=== PATIENT | male | born 1995 | race Caucasian/White ===

== ENCOUNTER 2016-07-24 12:04 | Inpatient (IN) ==
[2016-07-24] MEDS ORDERED: *HR* LORazepam 2 MG/ML VIAL IM STA (12:10)
[2016-07-24] MEDS ORDERED: Haloperidol Lactate 5 MG/ML VIAL IM ONE (12:10)
--- NOTE | 2016-07-24 12:15 | Emergency Department Note ---
Disposition Clinical Impression: Schizophrenia, Visual hallucinations Disposition: Admitted As Inpatient Condition: Fair Time of Disposition: 16:52 Psych HPI - General Chief Complaint: ED Altered Mental Status Stated Complaint: combative, AMS Time Seen by Provider: 07/24/16 12:09 Source: EMS Mode of arrival: ambulatory Limitations: no limitations Nursing Notes Reviewed: Yes Vital Signs Reviewed: Yes - History of Present Illness HPI Narrative: Patient is a 21-year-old male with schizophrenia, bipolar disorder. He presents today via EMS/police escort due to hyperactivity, paranoid delusions, visual hallucinations. Please state that they apprehended him due to trespassing. He began acting violently enteritis officers. They noted reticulocyte behavior, called EMS for further evaluation and help. EMS states that the patient has been to do before due to psychiatric complaints. Patient to be restrained to prevent self-harm and harm to others. Patient was in restraints on presentation. When interviewing the patient, patient appears agitated, he denies any current chest pain, shortness breath, abdominal pain, nausea, vomiting, numbness, tingling, weakness. Denies any drug use. Denies any suicidal or homicidal thoughts, however, he is showing aggressive behavior. He states that he is having visual hallucinations. He has not been taking any of his psychiatry medications for the past 2-3 days, however, he cannot remember why. - Related Data Home Medications Medication Instructions Recorded Confirmed Benztropine [Cogentin] 2 mg PO BID 07/24/16 07/24/16 Propranolol [Inderal] 10 mg PO DAILY 07/24/16 07/24/16 Previous Rx's Medication Instructions Recorded ClonazePAM [Klonopin] 1 mg PO BID 30 Days 10/15/15 Divalproex (12 HR) [Depakote (12 500 mg PO BID 30 Days 10/15/15 HR)] Fluphenazine [Prolixin] 5 mg PO BID 30 Days 10/15/15 Fluphenazine [Prolixin] 5 mg PO HS 30 Days 10/15/15 Allergies Allergy/AdvReac Type Severity Reaction Status Date / Time No Known Drug Allergies Allergy See Verified 08/03/15 18:00 Comments All systems ED: reviewed and negative except as stated. Past Medical History - Past Medical History Attestation: Yes The following information was validated with the patient. Medical history: Reports: no medical history Psychiatric history: Reports: schizophrenia, previous psychiatric hospitalization - Social History Smoking Status: Light tobacco smoker Smokeless Tobacco Status: No Alcohol use: Reports: none Drug use: Reports: none Physical Exam - General Limitations: no limitations General appearance: in no apparent distress, other (Anxious, agitated, exhibiting aggressive behavior) - Head Head exam: atraumatic, normocephalic, normal inspection - Eye Eye exam: Present: normal appearance, PERRL, EOMI - ENT ENT exam: normal exam, normal oropharynx, mucous membranes moist - Neck Neck exam: Present: normal inspection, full ROM, trachea midline - Chest Chest inspection: Present: normal inspection, symmetric chest wall rise - Respiratory Respiratory exam: Present: normal lung sounds bilaterally. Absent: respiratory distress, wheezes, stridor, accessory muscle use - Cardiovascular Cardiovascular exam: Present: regular rate, normal rhythm, normal heart sounds - Abdominal Exam Abdominal exam: Present: soft, Non-Tender. Absent: tenderness, distention, guarding, rebound, rigidity - Extremities Exam Extremities exam: Present: normal inspection, full ROM. Absent: tenderness, pedal edema - Back Exam Back exam: Present: normal inspection, full ROM. Absent: tenderness - Neurological Exam Neurological exam: Present: alert, oriented X3, CN II-XII intact. Absent: motor sensory deficit - Psychiatric Psychiatric exam: Present: agitated, anxious, other (agressive behavior) - Skin Skin exam: Present: warm, dry, intact, normal color Course Course Narrative: Patient is tachycardic on presentation. However, the rest of his vitals were within normal limits. Patient is anxious, having visual hallucinations, showing aggressive behavior. Due to safety reasons for the patient and staff, we will place the patient in restraints. We will also give her Haldol 5 mg and 1 mg of Ativan to help calm him down. The staff here is familiar with this patient and he has had previous admissions to psychiatry service. We will order a psychiatric clearance labs, and then have psychiatry evaluate due to paranoid delusions, visual hallucinations. 13:11 No major concerns with labs. Patient has been cleared to be evaluated by psychiatry. Patient admitted to psychiatry team for further evaluation. Vital Signs Temperature 98.3 F 07/24/16 12:04 Pulse Rate 125 07/24/16 12:04 Respiratory Rate 16 07/24/16 12:04 Blood Pressure 118/78 07/24/16 12:04 O2 Sat by Pulse Oximetry 100 07/24/16 12:04 Temperature 98.3 F 07/24/16 12:33 Pulse Rate 115 07/24/16 13:06 Respiratory Rate 16 07/24/16 16:34 Blood Pressure 106/58 07/24/16 16:34 O2 Sat by Pulse Oximetry 95 07/24/16 13:06 Oxygen Delivery Oxygen Delivery Room Air Psych - MDM Narrative Medical decision making narrative: Patient is tachycardic on presentation. However, the rest of his vitals were within normal limits. Patient is anxious, having visual hallucinations, showing aggressive behavior. Due to safety reasons for the patient and staff, we will place the patient in restraints. We will also give her Haldol 5 mg and 1 mg of Ativan to help calm him down. The staff here is familiar with this patient and he has had previous admissions to psychiatry service. We will order a psychiatric clearance labs, and then have psychiatry evaluate due to paranoid delusions, visual hallucinations. 13:11 No major concerns with labs. Patient has been cleared to be evaluated by psychiatry. Patient admitted to psychiatry team for further evaluation. - Lab Data Result diagrams: 07/24/16 12:32 07/24/16 12:32 Lab Results 07/24/16 07/24/16 07/24/16 Range/Units 12:30 12:30 12:32 WBC 8.1 (4.3-11.1) K/mcL RBC 4.89 (4.19-5.50) M/mcL Hgb 14.8 (12.9-16.9) g/dL Hct 41.5 (37.5-50.1) % MCV 84.9 (83.0-100.0) fL MCH 30.3 (28.0-33.3) pg MCHC 35.7 H (31.6-35.5) g/dL RDW 11.7 (11.5-14.5) % Plt Count 205 (140-400) K/mcL MPV 9.4 (9.4-12.4) fL Immature Gran % 0.2 (0-4) % Seg Neutrophils % 80.8 % Lymphocytes % 10.4 % Monocytes % 8.3 % Eosinophils % 0.1 % Basophils % 0.2 % Neutrophils # 6.5 (1.6-8.9) K/mcL Lymphocytes # 0.8 (0.6-4.6) K/mcL Monocytes # 0.7 (0.0-1.3) K/mcL Eosinophils # 0.0 (0.0-0.6) K/mcL Basophils # 0.0 (0.0-0.2) K/mcL Sodium (136-145) mEq/L Potassium (3.5-4.5) mEq/L Chloride (98-109) mEq/L Carbon Dioxide (19-29) mEq/L BUN (8-26) mg/dL Creatinine (0.72-1.25) mg/dL Est GFR ( Amer) (> 60) Est GFR (Non-Af Amer) (> 60) BUN/Creatinine Ratio (6-26) Glucose (70-99) mg/dL Calculated Osmolality (280-300) Calcium (8.6-10.8) mg/dL Urine Color Yellow (Yellow) Urine Clarity Clear (Clear) Urine pH 6.0 (5.0-8.0) pH Units Ur Specific [place] 1.030 H (1.010-1.025) Urine Protein 30 H (Neg-Trace) mg/dL Urine Glucose (UA) Normal (Normal) mg/dL Urine Ketones >=160 H (Negative) mg/dL Urine Blood Negative (Negative) Urine Nitrite Negative (Negative) Urine Bilirubin Small H (Negative) Urine Urobilinogen Normal (Normal) mg/dL Ur Leukocyte Esterase Negative (Negative) Urine Microscopic RBC 0-3 (0-3) per hpf Urine Microscopic WBC 0-3 (0-3) per hpf Ur Squamous Epith Cells Many H (None-Few) per lpf Urine Bacteria None Seen (None-Few) per hpf Hyaline Casts Few (None-Few) per lpf Salicylates (15-30) mg/dL Urine Opiates Screen Negative (Ygzvdv=826) ng/mL Acetaminophen (10-30) mcg/mL Ur Barbiturates Screen Negative (Zkyshj=078) ng/mL Ur Phencyclidine Scrn Negative (Cutoff=25) ng/mL Ur Amphetamines Screen Negative (Viznyp=0939) ng/mL U Benzodiazepines Scrn Negative (Rovqaz=064) ng/mL Urine Cocaine Screen Negative (Cutoff= 300) ng/mL U Marijuana (THC) Screen Negative (Cutoff = 50) ng/mL Ethyl Alcohol (0-10) mg/dL 07/24/16 Range/Units 12:32 WBC (4.3-11.1) K/mcL RBC (4.19-5.50) M/mcL Hgb (12.9-16.9) g/dL Hct (37.5-50.1) % MCV (83.0-100.0) fL MCH (28.0-33.3) pg MCHC (31.6-35.5) g/dL RDW (11.5-14.5) % Plt Count (140-400) K/mcL MPV (9.4-12.4) fL Immature Gran % (0-4) % Seg Neutrophils % % Lymphocytes % % Monocytes % % Eosinophils % % Basophils % % Neutrophils # (1.6-8.9) K/mcL Lymphocytes # (0.6-4.6) K/mcL Monocytes # (0.0-1.3) K/mcL Eosinophils # (0.0-0.6) K/mcL Basophils # (0.0-0.2) K/mcL Sodium 138 (136-145) mEq/L Potassium 3.9 (3.5-4.5) mEq/L Chloride 105 (98-109) mEq/L Carbon Dioxide 17 L (19-29) mEq/L BUN 10 (8-26) mg/dL Creatinine 0.94 (0.72-1.25) mg/dL Est GFR ( Amer) > 60 (> 60) Est GFR (Non-Af Amer) > 60 (> 60) BUN/Creatinine Ratio 11 (6-26) Glucose 97 (70-99) mg/dL Calculated Osmolality 285 (280-300) Calcium 9.7 (8.6-10.8) mg/dL Urine Color (Yellow) Urine Clarity (Clear) Urine pH (5.0-8.0) pH Units Ur Specific [place] (1.010-1.025) Urine Protein (Neg-Trace) mg/dL Urine Glucose (UA) (Normal) mg/dL Urine Ketones (Negative) mg/dL Urine Blood (Negative) Urine Nitrite (Negative) Urine Bilirubin (Negative) Urine Urobilinogen (Normal) mg/dL Ur Leukocyte Esterase (Negative) Urine Microscopic RBC (0-3) per hpf Urine Microscopic WBC (0-3) per hpf Ur Squamous Epith Cells (None-Few) per lpf Urine Bacteria (None-Few) per hpf Hyaline Casts (None-Few) per lpf Salicylates < 5.0 L (15-30) mg/dL Urine Opiates Screen (Xrlwvt=730) ng/mL Acetaminophen < 1.0 L (10-30) mcg/mL Ur Barbiturates Screen (Ozaicw=576) ng/mL Ur Phencyclidine Scrn (Cutoff=25) ng/mL Ur Amphetamines Screen (Mlfjin=8389) ng/mL U Benzodiazepines Scrn (Czjzrb=151) ng/mL Urine Cocaine Screen (Cutoff= 300) ng/mL U Marijuana (THC) Screen (Cutoff = 50) ng/mL Ethyl Alcohol < 10 (0-10) mg/dL Psychiatric Medical Clearance - Medical Clearance Checklist Medical History: No Social History Section defined Current Vitals: Last Vital Signs Temp 98.3 F 07/24/16 12:33 Pulse 115 07/24/16 13:06 Resp 16 07/24/16 16:34 BP 106/58 07/24/16 16:34 Pulse Ox 95 07/24/16 13:06 Psychiatric Lab Panel: Drug Levels and Toxicity 07/24/16 07/24/16 12:30 12:32 Urine Opiates Screen Negative Acetaminophen < 1.0 L Ur Barbiturates Screen Negative Ur Phencyclidine Scrn Negative Ur Amphetamines Screen Negative U Benzodiazepines Scrn Negative Urine Cocaine Screen Negative U Marijuana (THC) Screen Negative Ethyl Alcohol < 10 Abnormal Labs: Abnormal lab results MCHC 35.7 g/dL (31.6-35.5) H 07/24/16 12:32 Carbon Dioxide 17 mEq/L (19-29) L 07/24/16 12:32 Ur Specific [place] 1.030 (1.010-1.025) H 07/24/16 12:30 Urine Protein 30 mg/dL (Neg-Trace) H 07/24/16 12:30 Urine Ketones >=160 mg/dL (Negative) H 07/24/16 12:30 Urine Bilirubin Small (Negative) H 07/24/16 12:30 Ur Squamous Epith Cells Many per lpf (None-Few) H 07/24/16 12:30 Salicylates < 5.0 mg/dL (15-30) L 07/24/16 12:32 Acetaminophen < 1.0 mcg/mL (10-30) L 07/24/16 12:32 Statement of Medical Clearance: I have evaluated the patient, reviewed diagnostic information, and certify that the patient's medical condition is sufficiently stable that transfer to the psychiatric unit does not pose a significant risk of deterioration. Attestation Statement - Attestation Attestation: Patient was seen with resident physician. I reviewed the history, physical, assessment and plan, and agree with the findings. I also personally evaluated this patient and had [id number] time with this patient. 21-year-old male presents to the emergency department after being called by the police for a trespassing concern. When the police arrived apparently the patient became combative. He required restraints to be transported affectively to the hospital and was accompanied on arrival by variety of police and EMS professionals. Apparently the patient is a paranoid schizophrenic who is not been taking his medication for some time. He denies alcohol or drug use, he says he does smoke cigarettes. He is not sure how long expenses is taking this medication and is not sure the name of what he is supposed to be on. Patient admits to visual hallucinations. He denies homicidal or suicidal ideation. He is generally a very poor historian and it is difficult to get him to open up. On examination patient is in 4. restraints. He appears agitated but not violent at this time. ENT ears normocephalic atraumatic. He has some rapid nystagmus of the eyes. Heart and lungs are normal. Abdomen is soft and nontender. Extremities are unremarkable. Psychiatric exam patient appears agitated, and gives the impression of possible explosive behavior. We will do a psychiatry workup and clearance and then have psychiatry come and evaluate and disposition the patient. We will also write pink slips for admission and restraint, and we will chemically restrain patient as well with Haldol and Ativan. I agree with the resident physician assessment and plan.
[2016-07-24 12:37] LABS: Bilirubin,Urine Small (Negative); Blood,Urine Negative (Negative); Clarity,Urine Clear (Clear); Color,Urine Yellow (Yellow); Glucose,Urine (UA) Normal (Normal); Ketones,Urine >=160 mg/dL (Negative); Leukocyte Esterase,Urine Negative (Negative); Nitrite,Urine Negative (Negative); Protein,Urine 30 mg/dL (Neg-Trace); Urobilinogen,Urine Normal (Normal)
[2016-07-24 12:39] LABS: Bacteria,Urine None Seen per hpf (None-Few); Hyaline Casts,Urine Few per lpf (None-Few); RBC,Urine 0-3 per hpf (0-3); Squamous Epithelial Cell,Urine Many per lpf (None-Few); WBC,Urine 0-3 per hpf (0-3)
[2016-07-24 12:39] LABS: Basophils % 0.2 %; Eosinophils % 0.1 %; Hematocrit 41.5 % (37.5-50.1); Hemoglobin 14.8 g/dL (12.9-16.9); Immature Granulocytes % 0.2 % (0-4); Lymphocytes # 0.8 K/mcL (0.6-4.6); Lymphocytes % 10.4 %; Mean Corpuscular HGB Conc 35.7 g/dL (31.6-35.5); Mean Corpuscular Hemoglobin 30.3 pg (28.0-33.3); Mean Corpuscular Volume 84.9 fL (83.0-100.0); Mean Platelet Volume 9.4 fL (9.4-12.4); Monocytes # 0.7 K/mcL (0.0-1.3); Monocytes % 8.3 %; Neutrophils # 6.5 K/mcL (1.6-8.9); Platelet Count 205 K/mcL (140-400); Red Blood Count 4.89 M/mcL (4.19-5.50); Red Cell Distribution Width 11.7 % (11.5-14.5); Segmented Neutrophils % 80.8 %
[2016-07-24 12:49] LABS: Amphetamine Screen,Urine Negative ng/mL (Cutoff=1000); Barbiturate Screen,Urine Negative ng/mL (Cutoff=200); Benzodiazepines Screen,Urine Negative ng/mL (Cutoff=200); Cannabinoid Screen,Urine Negative ng/mL (Cutoff = 50); Cocaine Screen,Urine Negative ng/mL (Cutoff= 300); Opiate Screen,Urine Negative ng/mL (Cutoff=300); Phencyclidine Screen,Urine Negative ng/mL (Cutoff=25)
[2016-07-24 12:52] LABS: BUN/Creatinine Ratio 11 (6-26); Blood Urea Nitrogen 10 mg/dL (8-26); Calcium 9.7 mg/dL (8.6-10.8); Carbon Dioxide 17 mEq/L (19-29); Chloride 105 mEq/L (98-109); Glucose 97 mg/dL (70-99); Osmolality,Calculated 285 (280-300); Potassium 3.9 mEq/L (3.5-4.5); Sodium 138 mEq/L (136-145); eGFR For African Americans > 60 (> 60); eGFR For Non-African Americans > 60 (> 60)
[2016-07-24 12:54] LABS: Acetaminophen < 1.0 mcg/mL (10-30); Ethanol < 10 mg/dL (0-10); Salicylate < 5.0 mg/dL (15-30)
[2016-07-24] MEDS ORDERED: Acetaminophen 325 MG TABLET PO PRN (16:47)
[2016-07-24] MEDS ORDERED: hydrOXYzine pamoate 25 MG CAPSULE PO PRN (16:47)
[2016-07-24] MEDS ORDERED: MOM Conc 10 ML UD.LIQ PO PRN (16:47)
[2016-07-24] MEDS ORDERED: Mag Hydrox/Al Hydrox/Simeth 30 ML UDC PO PRN (16:47)
[2016-07-24] MEDS ORDERED: Haloperidol Lactate 5 MG/ML VIAL IM PRN (16:53)
[2016-07-24] MEDS ORDERED: *HR* LORazepam 2 MG/ML VIAL IM PRN (16:58)
[2016-07-24] MEDS ORDERED: *HR* LORazepam 1 MG TABLET PO PRN (16:58)
--- NOTE | 2016-07-25 21:00 | Psychiatry History & Physical ---
Date of Encounter: 07/25/16 Time of Encounter: 16:00 History of Present Illness Patient Stated Chief Complaint: "I'm fine. I will let me light shine. That is all the lord God wants me t Medicare Admission Attestation: For traditional Medicare patients the provided hospital inpatient services are reasonable and necessary and in the case of services not specified as inpatient -only under 42 CFR 419.22 (n), that they are appropriately provided as inpatient services in accordance 42 CFR 412.3. For Critical Access Hospital the patient may reasonably be expected to be discharged or transferred to a hospital within 96 hours after admission to the Critical Access Hospital. Admitted From: Emergency Dept Plans for Post Hospital Care: Home History of Present Illness: Mr. Loving is a 21 year old male who was brought into the emergency department after being apprehended by police for trespassing. Patient had paranoid delusions and was very agitated at that time. Upon interviewing the patient today, he tells "I am doing good". When I ask in regards to his history of being on psychiatric medications he told me "I do not need them". He said that God had sent him visions before and they started again a couple days ago. He started seeing the vision of the cross. He denies being suicidal or homicidal, he denies auditory or visual hallucinations of this time. I discussed with him his sleep and he states that he is not sleeping well. He has been having unusual thoughts but he will not discuss what those unusual thoughts are. He denied any side effects from his previous medications he stated that God would cure him and he did not need them. He told me that he was feeling depressed and frustrated at times but not elaborate. When I asked him what feeling depressed was like in regards to if he was having low energy and was sad he said "yes". In regards to talking to him about anxiety he said he was "stressed " but would not tell me what he was stressed about. I asked him to gauge on a scale from 1 to 10 with 10 being the worst stress ever, he stated" 10". Past Med Surg Social Fam HX - Past Medical History Medical history: no medical history - Past Psychiatric History Psychiatric history: Reports: previous psychiatric hospitalization (Last Mitzi 1 -A 08/2015. tx outpatient at [facility], non-compliant) Family psychiatric history: Yes (both parents have mental health diagnosis.) Family History of Suicide: Unknown - Social History Smoking Status: Never smoker Smokeless Tobacco Status: No Alcohol use: none Drug use: none Medications & Allergies ClonazePAM [Klonopin] 1 mg PO BID 30 Days 10/15/15 [Rx] Divalproex (12 HR) [Depakote (12 HR)] 500 mg PO BID 30 Days 10/15/15 [Rx] Fluphenazine [Prolixin] 5 mg PO BID 30 Days 10/15/15 [Rx] Fluphenazine [Prolixin] 5 mg PO HS 30 Days 10/15/15 [Rx] Benztropine [Cogentin] 2 mg PO BID 07/24/16 [History] Propranolol [Inderal] 10 mg PO DAILY 07/24/16 [History] Allergies No Known Drug Allergies Allergy (Verified 08/03/15 18:00) See Comments Review of Systems Psychiatric: Reports: anxiety, abnormal sleep pattern, suicidal ideation Mental Status Exam Patient orientation: Yes Person, Yes Place Level of alertness: Other (Follows commands but reluctantly) Patient appearance: Appropriate Behavior: nervous, anxious, guarded Psychomotor activity: Normal Eye contact: Fleeting Contact Mood description: Anxious Affect description: flat, anxious Speech pattern: Normal rate, Normal rhythm, Normal tone Speech volume: Normal Thought process: Circumstantial, Perseveration, [place] Thought content: Yes Paranoid delusion, Yes Christian delusion, Yes Guilt Memory description: Recent Impaired, Remote Impaired Patient reliability: Not Reliable Historian Intelligence estimate: Average Judgment: Poor Insight: Minimal Results - Vital Signs Vital signs: Temp Pulse Resp BP Pulse Ox 99.2 F 79 16 137/93 95 07/25/16 19:45 07/25/16 19:45 07/25/16 19:45 07/25/16 19:45 07/24/16 13:06 - Labs Labs: Laboratory Last Values WBC 8.1 K/mcL (4.3-11.1) 07/24/16 12:32 RBC 4.89 M/mcL (4.19-5.50) 07/24/16 12:32 Hgb 14.8 g/dL (12.9-16.9) 07/24/16 12:32 Hct 41.5 % (37.5-50.1) 07/24/16 12:32 MCV 84.9 fL (83.0-100.0) 07/24/16 12:32 MCH 30.3 pg (28.0-33.3) 07/24/16 12:32 MCHC 35.7 g/dL (31.6-35.5) H 07/24/16 12:32 RDW 11.7 % (11.5-14.5) 07/24/16 12:32 Plt Count 205 K/mcL (140-400) 07/24/16 12:32 MPV 9.4 fL (9.4-12.4) 07/24/16 12:32 Immature Gran % 0.2 % (0-4) 07/24/16 12:32 Seg Neutrophils % 80.8 % 07/24/16 12:32 Lymphocytes % 10.4 % 07/24/16 12:32 Monocytes % 8.3 % 07/24/16 12:32 Eosinophils % 0.1 % 07/24/16 12:32 Basophils % 0.2 % 07/24/16 12:32 Neutrophils # 6.5 K/mcL (1.6-8.9) 07/24/16 12:32 Lymphocytes # 0.8 K/mcL (0.6-4.6) 07/24/16 12:32 Monocytes # 0.7 K/mcL (0.0-1.3) 07/24/16 12:32 Eosinophils # 0.0 K/mcL (0.0-0.6) 07/24/16 12:32 Basophils # 0.0 K/mcL (0.0-0.2) 07/24/16 12:32 Sodium 138 mEq/L (136-145) 07/24/16 12:32 Potassium 3.9 mEq/L (3.5-4.5) 07/24/16 12:32 Chloride 105 mEq/L (98-109) 07/24/16 12:32 Carbon Dioxide 17 mEq/L (19-29) L 07/24/16 12:32 BUN 10 mg/dL (8-26) 07/24/16 12:32 Creatinine 0.94 mg/dL (0.72-1.25) 07/24/16 12:32 Est GFR ( Amer) > 60 (> 60) 07/24/16 12:32 Est GFR (Non-Af Amer) > 60 (> 60) 07/24/16 12:32 BUN/Creatinine Ratio 11 (6-26) 07/24/16 12:32 Glucose 97 mg/dL (70-99) 07/24/16 12:32 Calculated Osmolality 285 (280-300) 07/24/16 12:32 Calcium 9.7 mg/dL (8.6-10.8) 07/24/16 12:32 Urine Color Yellow (Yellow) 07/24/16 12:30 Urine Clarity Clear (Clear) 07/24/16 12:30 Urine pH 6.0 pH Units (5.0-8.0) 07/24/16 12:30 Ur Specific [place] 1.030 (1.010-1.025) H 07/24/16 12:30 Urine Protein 30 mg/dL (Neg-Trace) H 07/24/16 12:30 Urine Glucose (UA) Normal mg/dL (Normal) 07/24/16 12:30 Urine Ketones >=160 mg/dL (Negative) H 07/24/16 12:30 Urine Blood Negative (Negative) 07/24/16 12:30 Urine Nitrite Negative (Negative) 07/24/16 12:30 Urine Bilirubin Small (Negative) H 07/24/16 12:30 Urine Urobilinogen Normal mg/dL (Normal) 07/24/16 12:30 Ur Leukocyte Esterase Negative (Negative) 07/24/16 12:30 Urine Microscopic RBC 0-3 per hpf (0-3) 07/24/16 12:30 Urine Microscopic WBC 0-3 per hpf (0-3) 07/24/16 12:30 Ur Squamous Epith Cells Many per lpf (None-Few) H 07/24/16 12:30 Urine Bacteria None Seen per hpf (None-Few) 07/24/16 12:30 Hyaline Casts Few per lpf (None-Few) 07/24/16 12:30 Salicylates < 5.0 mg/dL (15-30) L 07/24/16 12:32 Urine Opiates Screen Negative ng/mL (Zskavn=921) 07/24/16 12:30 Acetaminophen < 1.0 mcg/mL (10-30) L 07/24/16 12:32 Ur Barbiturates Screen Negative ng/mL (Pekrqn=256) 07/24/16 12:30 Ur Phencyclidine Scrn Negative ng/mL (Cutoff=25) 07/24/16 12:30 Ur Amphetamines Screen Negative ng/mL (Sbersu=6126) 07/24/16 12:30 U Benzodiazepines Scrn Negative ng/mL (Edfayr=946) 07/24/16 12:30 Urine Cocaine Screen Negative ng/mL (Cutoff= 300) 07/24/16 12:30 U Marijuana (THC) Screen Negative ng/mL (Cutoff = 50) 07/24/16 12:30 Ethyl Alcohol < 10 mg/dL (0-10) 07/24/16 12:32 Assessment and Plan (1) Schizoaffective disorder, bipolar type Current visit: No Status: Acute Plan: Admit inpatient for safety and stabilization, Close observation, Encourage participation in unit milieu, Group Therapy Risks, benefits, side effects, alternatives discussed w/pt: Yes (restart his Prolixin) Patient agreeable to treatment: No (He is hesitant at this time) Estimated Length of Stay (Days): 10
--- NOTE | 2016-07-26 10:26 | Psychiatry Progress Note ---
Date of Encounter: 07/26/16 Time of Encounter: 09:00 Subjective Interval history: "I'm good. I don't know that I need to be here. I had told the police I needed to flee [place]. I don't know that I need to do that now." He will not explain to me why he needed to flee [place]. He no longer feels it to be a threat to be out of the hospital. He took his medication last evening and denies any side effects. He tells me he slept good. He was eating yesterday without issue. He denies being depressed, but is still "a little anxious and worried." He denies SI/HI. He denies A/V hallucinations but appears to have some thought blocking or is responding to internal stimuli. We had a long discussion regarding signing in and continuing on with his medications secondary to being probated here. He is unsure about being here, but finally decides he will take his medications and sign in on a voluntary basis. Review of Systems Psychiatric: Reports: anxiety Objective: Exam Patient orientation: Yes Person, Yes Place Level of alertness: Alert (Able to sit and talk to me.) Patient appearance: Well Groomed, Bizarre Behavior: nervous, anxious, guarded Psychomotor activity: Normal Eye contact: Prolonged Contact Mood description: Anxious Affect description: flat, anxious Speech pattern: Normal tone, Difficulty finding words Speech volume: Normal Thought process: Thought Blocking ((questionable)), [place] Thought content: Yes Paranoid delusion, Yes Evangelical delusion Perceptual disturbances: Yes Reacting to internal stimuli ((questionable)) Judgment: Poor Insight: Minimal Results - Vital Signs Vital Signs: Temp Pulse Resp BP Pulse Ox 97.4 F L 98 16 137/88 95 07/26/16 08:14 07/26/16 08:14 07/26/16 08:14 07/26/16 08:14 07/24/16 13:06 Assessment and Plan (1) Schizoaffective disorder, bipolar type Current visit: No Status: Acute Plan: Continue hospitalization, Group Therapy, Monitor appetite Risks, benefits, side effects, alternatives discussed w/pt: Yes (restart his Prolixin) Patient agreeable to treatment: Yes (signs in voluntary) Consult Discharge Plan - Plan Referrals: NO,PCP [Primary Care Provider] -
[2016-07-26] MEDS: traZODone 50 MG TABLET PO PRN (20:40)
--- NOTE | 2016-07-27 11:53 | Psychiatry Progress Note ---
Date of Encounter: 07/27/16 Time of Encounter: 10:35 Subjective Interval history: Mr. Loving was seen in follow-up today. It was reported that he had tried to elope from the unit last night. I asked him what happened, and he stated "I shouldn't have done that". Staff reported that he was not forceful about it, but walked toward the exit door and said he was going to leave the unit. He told me he was sorry. He does not like to be in the hospital and misses his family and home. Patient acknowledged that he was more relaxed and feeling better. He was observed yesterday talking more to other patients and staff on the unit, playing games and attending activities. He was able to focus and concentrate better and was much more animated and engaged; where as he had not been able to do these things prior to restarting his Prolixin. He was having thought blocking and was very paranoid. He is making better eye contact and smiling more. He reported that he is sleeping fine and eating fine. I spoke with him about his medications and that he is doing better with medication. He is still questioning the need for the medication stating that he wanted to go home. I discussed with him his history of noncompliance and the fact that you got in trouble with the police again for trespassing. I spoke with him about not being on the Depakote this admission, which he had been on in the past causing him to gain weight. I told him that others have observed what I observed, how he was much better. I explained to him again that it was a chemical imbalance that could be improved upon with medications and would probably not go away for him. I explained to him that the Prolixin came in a "shot form" that he could take every 2 to 4 weeks depending on the dose, depending on his outpatient follow-ups. This would make it easier that he would not have to take pills and would not have to go to doctors appointments as frequently. He thought about this for a long time and asked more questions of me and asked questions/ opinions of other staff. He is concerned about possibly getting court ordered some day for medications if he got into trouble again. He decided he would try to take the Prolixin Decanoate 12.5 mg preparation and see how it goes, especially if he did not have to take pills much longer and that he could be discharged home sooner and not have to see outpatient mental health as frequently. Review of Systems Psychiatric: Reports: anxiety (Improved), abnormal sleep pattern (Improved) Objective: Exam Patient orientation: Yes Person, Yes Time, Yes Place, Yes Circumstance Level of alertness: Alert (Able to sit and talk to me.) Patient appearance: Appropriate (more so than upon admission), Well Groomed Behavior: nervous (less), guarded (less) Psychomotor activity: Normal Eye contact: Maintains Eye Contact Mood description: Anxious (mild when talking of the medications) Affect description: anxious Speech pattern: Normal rate, Normal rhythm, Normal tone, Appropriate Speech volume: Normal Thought process: Linear (much improved), Goal Oriented, [place] Thought content: Yes Paranoid delusion (decreased), Yes Mandaeism delusion (not present) Judgment: Fair Insight: Partial Results - Vital Signs Vital Signs: Temp Pulse Resp BP Pulse Ox 98.0 F 98 18 131/84 95 07/27/16 09:00 07/27/16 09:00 07/27/16 09:00 07/27/16 09:00 07/24/16 13:06 Assessment and Plan (1) Schizoaffective disorder, bipolar type Current visit: No Status: Acute Plan: Continue hospitalization, Group Therapy, Monitor appetite Risks, benefits, side effects, alternatives discussed w/pt: Yes (Consented to Prolixin Dec 12.5 mg IM dose, given) Patient agreeable to treatment: Yes (signs in voluntary) Consult Discharge Plan - Plan Referrals: [facility] [Outside] - 08/03/16 10:00 am (The above appointment is with Leticia Peters, counselor. You will also see Jana Ching, psychiatric prescriber, on 08/15/2016 @ 11:00am.)
[2016-07-27] MEDS ORDERED: *HR* LORazepam 2 MG/ML VIAL IM PRN (16:27)
[2016-07-27] MEDS ORDERED: *HR* LORazepam 1 MG TABLET PO PRN (16:29)
[2016-07-27] MEDS: traZODone 50 MG TABLET PO PRN (20:17)
--- NOTE | 2016-07-28 11:34 | Psychiatry Progress Note ---
Date of Encounter: 07/28/16 Time of Encounter: 09:40 Subjective Interval history: Patient tells me that he is doing okay and denies any side effects of the IM Prolixin he received yesterday. He tells me that he slept well he has no arm soreness. He denies suicidal or homicidal ideations. He asks me, "so I will get out here in 2 or 3 days doing?" I told him that that was the plan as long as things continue to go well. I asked him if he was hearing voices are seeing things that others may not be seeing or hearing. He replied "I do not want to talk about that". He showed me that he completed his wellness plan. When asked him why he would not talk about hallucinations he shook his head no and wouldn't say anything. He is cooperative on the unit, is engaged in more activities on the unit and is starting to present as more open and spontaneous. Review of Systems Psychiatric: Reports: anxiety (Improved), abnormal sleep pattern (Improved), auditory hallucinations (he will not discuss), visual hallucinations (he will not discuss) Objective: Exam Patient orientation: Yes Person, Yes Time, Yes Place, Yes Circumstance Level of alertness: Alert Patient appearance: Appropriate, Well Groomed Behavior: nervous (less), other (more appropriately engaged.) Psychomotor activity: Normal Eye contact: Maintains Eye Contact Mood description: Anxious (mild when talking of the hallucinations) Affect description: anxious Speech pattern: Normal rate, Normal rhythm, Normal tone, Appropriate Speech volume: Normal Thought process: Linear (much improved), Goal Oriented, [place] Thought content: Yes Paranoid delusion (decreased) Perceptual disturbances: Yes Reacting to internal stimuli ((questionable, but less)) Judgment: Fair Insight: Partial Results - Vital Signs Vital Signs: Temp Pulse Resp BP Pulse Ox 98.6 F 68 16 125/72 95 07/28/16 08:53 07/28/16 08:53 07/28/16 08:53 07/28/16 08:53 07/24/16 13:06 Assessment and Plan (1) Schizoaffective disorder, bipolar type Current visit: No Status: Acute Plan: Continue hospitalization, Group Therapy, Monitor appetite Risks, benefits, side effects, alternatives discussed w/pt: Yes (Consented to Prolixin Dec 12.5 mg IM dose, given) Patient agreeable to treatment: Yes (signs in voluntary) Consult Discharge Plan - Plan Referrals: [facility] [Outside] - 08/03/16 10:00 am (The above appointment is with Leticia Peters, counselor. You will also see Jana Ching psychiatric prescriber, on 08/15/2016 @ 11:00am.)
[2016-07-28] MEDS: traZODone 50 MG TABLET PO PRN (21:07)
--- NOTE | 2016-07-29 13:21 | Psychiatry Progress Note ---
Date of Encounter: 07/29/16 Time of Encounter: 12:15 Subjective Interval history: Patient was willing to meet with me to talk today. I asked him how he was doing and he replied "good". He tells me, "slept all night last night till they woke me up this morning." When asked about thoughts of hurting himself or anybody else he denied that again today. When I asked him about hearing voices other people do not hear and seeing things other people do not see, he acknowledged that he has been seeing things which he did not want to talk about yesterday. I asked him what he sees he stated, "slash aldridge". I asked him if they were on himself or other people and he would not say. "I am not seeing them anymore so it is better". He then made a statement "I still do not know that I need that medication". He has been compliant and taking medication and has been showing improvement. He is less intense on the unit, he is smiling more and he is engaging staff and other patients in an appropriate manner. He was educated again on the medication and was encouraged to talk to his grandmother to see what she thought and get her opinion. He told me he would talk to his grandmother today and see if she thought he should take the medication. Review of Systems Psychiatric: Reports: anxiety (Improved), abnormal sleep pattern (Improved), auditory hallucinations, visual hallucinations Objective: Exam Patient orientation: Yes Person, Yes Time, Yes Place, Yes Circumstance Level of alertness: Alert (Able to sit and talk to me.) Patient appearance: Appropriate, Well Groomed Behavior: nervous (less), guarded (less) Psychomotor activity: Normal Eye contact: Maintains Eye Contact Mood description: Anxious (mild when talking of the medications) Affect description: anxious Speech pattern: Normal rate, Normal rhythm, Normal tone, Appropriate Speech volume: Normal Thought process: Linear (much improved), Goal Oriented, [place] (slightly becoming less) Perceptual disturbances: Yes Reacting to internal stimuli ((questionable)) Judgment: Fair Insight: Partial (improving slightly) Results - Vital Signs Vital Signs: Temp Pulse Resp BP Pulse Ox 97.9 F 85 16 117/71 95 07/29/16 08:43 07/29/16 08:43 07/29/16 08:43 07/29/16 08:43 07/24/16 13:06 Assessment and Plan (1) Schizoaffective disorder, bipolar type Current visit: No Status: Acute Plan: Continue hospitalization, Encourage participation in unit milieu, Group Therapy, Monitor appetite Risks, benefits, side effects, alternatives discussed w/pt: Yes Patient agreeable to treatment: Yes (signs in voluntary) Consult Discharge Plan - Plan Referrals: [facility] [Outside] - 08/03/16 10:00 am (The above appointment is with Leticia Peters, counselor. You will also see Jana Ching psychiatric prescriber, on 08/15/2016 @ 11:00am.)
--- NOTE | 2016-07-30 15:44 | Psychiatry Progress Note ---
Date of Encounter: 07/30/16 Time of Encounter: 11:00 Subjective Interval history: Patient tells me that he spoke to his grandmother yesterday and she told him he needs to take the medication. According to the patient, she told him he is doing better now with the medications. "I'll keep taken them then." He denies any issues with the IM Prolixin and will follow up with outpatient services to get another one in several weeks. I discussed with him that the IM should be absorbing now and that I would cut back on his oral dose to HS and then that would be stopped in 5 days or so. He is feeling more engaged and more relaxed on the unit. He denies SI/HI, A/V hallucinations. He is playing games with other patients and staff. He is sleeping well, eating fine and future oriented. Review of Systems Psychiatric: Reports: anxiety (Improved), visual hallucinations (resolved) Objective: Exam Patient orientation: Yes Person, Yes Time, Yes Place, Yes Circumstance Level of alertness: Alert Patient appearance: Appropriate, Well Groomed Behavior: calm, cooperative Psychomotor activity: Normal Eye contact: Maintains Eye Contact Mood description: Anxious (improved) Affect description: congruent with mood Speech pattern: Normal rate, Normal rhythm, Normal tone, Appropriate Speech volume: Normal Thought process: Linear (much improved), Goal Oriented Thought content: Yes Paranoid delusion (decreased) Judgment: Fair Insight: Partial Results - Vital Signs Vital Signs: Temp Pulse Resp BP Pulse Ox 98 F 90 18 121/72 95 07/30/16 08:44 07/30/16 08:44 07/30/16 08:44 07/30/16 08:44 07/24/16 13:06 Assessment and Plan (1) Schizoaffective disorder, bipolar type Current visit: No Status: Acute Plan: Continue hospitalization, Group Therapy, Monitor appetite Risks, benefits, side effects, alternatives discussed w/pt: Yes (Taking Oral Prolixin 5 mg that will be decreased to HS, with Prolixin Dec ) Patient agreeable to treatment: Yes Consult Discharge Plan - Plan Referrals: [facility] [Outside] - 08/03/16 10:00 am (The above appointment is with Leticia Peters, counselor. You will also see Jana Ching, psychiatric prescriber, on 08/15/2016 @ 11:00am.)
[2016-07-31 08:56] VITALS: BP 117/67
--- NOTE | 2016-07-31 10:16 | Discharge Summary ---
Date of Encounter: 07/31/16 Time of Encounter: 09:45 Diagnosis - Discharge Diagnosis (1) Schizoaffective disorder, bipolar type Status: Acute Medications - Discharge Medications Prescriptions: Benztropine [Cogentin] 1 mg PO Q4H PRN #30 tablet PRN Reason: EPS/Muscle Stiffness Fluphenazine [Prolixin] 5 mg PO HS #5 tablet Benztropine [Cogentin] 1 mg PO Q4H PRN #30 tablet 07/31/16 [Rx] Fluphenazine [Prolixin] 5 mg PO HS #5 tablet 07/31/16 [Rx] Allergies No Known Drug Allergies Allergy (Verified 08/03/15 18:00) See Comments Provider Date of admission: 07/24/16 16:12 Primary care physician: PCP NO Discharging clinician: Harley Jauregui Assessment and Plan - Patient/Caregiver Discharge Instructions Activity: resume usual activities as tolerated Diet: regular diet - Follow up Plan Follow up with: [facility] [Outside] - 08/03/16 10:00 am (The above appointment is with Leticia Peters, counselor. You will also see Jana Ching psychiatric prescriber, on 08/15/2016 @ 11:00am.) Functional capacity at discharge: independent ambulation Overall status at discharge: Stable Disposition: Home, Self-Care Hospital Course Hospital course: Mr. Loving is a 21 year old male who tells me today that he feels "good". He denies any problems on the unit or with his medications. He states that the medication is been helpful and he understands after talking to me and his grandmother confirming, that he needs to keep taking the medication. He tells me "I slept real good last night". He denies any adverse side effects of the Prolixin. His AIMS score is 0 today. He denies any auditory-visual hallucinations. He denies any mind reading, thought control or paranoia. He has been much more engaged over the weekend on the unit. He is laughing appropriately, talking with staff working on puzzles and games and communicating with the other patients in a pleasant manner. He is much more linear and logical. He received the Prolixin decanoate 12.5 mg injection several days ago. His dose of oral Prolixin has been dropped by to 5 mg at night. He will be continued on that for 5 more days and then will be DC'd. He has a follow-up appointment at [facility]. At that point time he should get at least another Prolixin 12.5 mg injection and/or have an increased dose if he is symptomatic, based on his clinical presentation. The increase dose should be 25 mg. - Time Spent with Patient Total time spent providing and/or coordinating discharge services: 15 min Less than 30 minutes Quality - Multiple Antipsychotics Patient discharged on 2 or more antipsychotic medications: No Procedures - Procedures Procedures: Medication Management, Crisis Stabilization, Psychoeducational Therapy Mental Status Exam - Mental Status Exam Patient orientation: Yes Person, Yes Time, Yes Place, Yes Circumstance Level of alertness: Alert Patient appearance: Appropriate, Well Groomed Behavior: calm, cooperative Psychomotor activity: Normal (AIMS=0) Eye contact: Maintains Eye Contact Mood description: Euthymic/stable (overall), Anxious (nervous about whether he was going to be discharged or not today) Affect description: congruent with mood Speech pattern: Normal rate, Normal rhythm, Normal tone, Appropriate Speech Volume: Normal Thought process: Linear (much improved), Goal Oriented Thought Content: Yes Paranoid delusion (decreased) Perceptual Disturbances: Yes Reacting to internal stimuli ((questionable, but less)) Judgment: Fair Insight: Partial
== END 2016-07-31 10:25 | disposition home or self-care (01) | DRG 750 ==
LOC: EMEROO 12:04 → SUATTDRO 16:12 → 1ANU 16:12
PROVIDERS: ADMIT Psychiatry & Neurology Psychiatry; ATTEND Psychiatry & Neurology Psychiatry

== ENCOUNTER 2016-08-12 10:52 | Inpatient (IN) ==
[2016-08-12] MEDS ORDERED: Ziprasidone injection 20 MG/ML VIAL IM ONE (10:57)
[2016-08-12 11:40] LABS: Basophils % 0.3 %; Eosinophils % 0.3 %; Hematocrit 47.5 % (37.5-50.1); Hemoglobin 16.5 g/dL (12.9-16.9); Immature Granulocytes % 0.1 % (0-4); Immature Platelets 2.3 % (1.1-6.1); Lymphocytes % 14.1 %; Mean Corpuscular HGB Conc 34.7 g/dL (31.6-35.5); Mean Corpuscular Hemoglobin 30.2 pg (28.0-33.3); Monocytes # 0.4 K/mcL (0.0-1.3); Monocytes % 5.7 %; Neutrophils # 5.4 K/mcL (1.6-8.9); Platelet Count 208 K/mcL (140-400); Red Blood Count 5.46 M/mcL (4.19-5.50); Red Cell Distribution Width 12.2 % (11.5-14.5); Segmented Neutrophils % 79.5 %
--- NOTE | 2016-08-12 11:41 | Emergency Department Note ---
Disposition Clinical Impression: Acute psychosis Facial laceration Qualifiers: Encounter type: initial encounter Qualified Code(s): S01.81XA - Laceration without foreign body of other part of head, initial encounter Disposition: Admitted As Inpatient Referrals: Mynor Hewitt MD [Emergency Provider] - Forms: ED Satisfaction Letter Psych HPI - General Chief Complaint: ED Psychiatric Symptoms Stated Complaint: aggressive behaviors Time Seen by Provider: 08/12/16 10:57 Source: EMS Mode of arrival: ambulatory Limitations: no limitations Nursing Notes Reviewed: Yes Vital Signs Reviewed: Yes - History of Present Illness Pt complaint: medical clearance request (psychotic break was arrested taser gun used by police) Onset (ago): Just RAILROAD [employer] Duration: constant History of similar episodes: Yes Improves with: medication Worsens with: none Alleged intoxication: No Associated Psychiatric Symptoms: auditory hallucinations Associated symptoms: Reports: denies other symptoms Traumatic symptoms: other (tasered by police, facial and ext abrasions, laceration to chin) Self harm or harm to others: admits thoughts of self harm (0) - Related Data Previous Rx's Medication Instructions Recorded Benztropine [Cogentin] 1 mg PO Q4H PRN #30 tablet 07/31/16 Fluphenazine [Prolixin] 5 mg PO HS #5 tablet 07/31/16 Allergies Allergy/AdvReac Type Severity Reaction Status Date / Time No Known Drug Allergies Allergy See Verified 08/12/16 11:05 Comments Past Medical History - Past Medical History Source: patient, obtained from family (police), nursing notes reviewed Medical history: Reports: no medical history Psychiatric history: Reports: previous psychiatric hospitalization - Social History Smoking Status: Never smoker Smokeless Tobacco Status: No Alcohol use: Reports: none Drug use: Reports: none Physical Exam - General Limitations: other General appearance: alert, other (Floridly psychotic) - Head Head exam: other (Patient has a 1 cm vertical laceration on his chin and also a swollen and bruised upper lip) - Eye Eye exam: Present: normal appearance, PERRL, EOMI - ENT ENT exam: normal exam, normal oropharynx, mucous membranes moist - Neck Neck exam: Present: normal inspection, full ROM, trachea midline - Chest Chest inspection: Present: normal inspection, symmetric chest wall rise - Respiratory Respiratory exam: Present: normal lung sounds bilaterally - Cardiovascular Cardiovascular exam: Present: regular rate, normal rhythm, normal heart sounds - Abdominal Exam Abdominal exam: Present: soft, Non-Tender. Absent: tenderness, distention, guarding, rebound, rigidity - Extremities Exam Extremities exam: Present: normal inspection, full ROM. Absent: tenderness, pedal edema - Expanded Lower Extremity Exam Hip/Pelvis exam: Present: normal inspection, full ROM - Back Exam Back exam: Present: normal inspection, full ROM. Absent: tenderness - Neurological Exam Neurological exam: Present: alert, other (psychosis) - Psychiatric Psychiatric exam: Present: agitated, manic - Skin Skin exam: Present: warm, dry, normal color Course - Reevaluation(s) Reevaluation #1: Patient is much more calm restraints removed Time: 12:44 Vital Signs Temperature 100.5 F H 08/12/16 10:56 Pulse Rate 144 08/12/16 10:56 Respiratory Rate 18 08/12/16 10:56 Blood Pressure 141/83 08/12/16 10:56 O2 Sat by Pulse Oximetry 95 08/12/16 10:56 Temperature 98.0 F 08/12/16 14:27 Pulse Rate 129 08/12/16 14:27 Respiratory Rate 18 08/12/16 14:27 Blood Pressure 134/86 08/12/16 14:27 O2 Sat by Pulse Oximetry 97 08/12/16 14:27 Oxygen Delivery Oxygen Delivery Room Air Procedures - Laceration Laceration 1 Site: other (chin ) Size (cm): 1 Description: linear (verticle) Depth: simple, single layer Local Anesthetic: lidocaine 1%, with epi Amount of Anesthesia Used (mL): 3 Pre-repair: wound explored, irrigated extensively, deep structures intact Skin layer closed with: nylon Size: 5-0 Technique: simple, interrupted Psych - Lab Data Result diagrams: 08/12/16 11:33 08/12/16 11:33 Lab Results 08/12/16 08/12/16 08/12/16 Range/Units 11:33 11:33 11:33 WBC 6.8 (4.3-11.1) K/mcL RBC 5.46 (4.19-5.50) M/mcL Hgb 16.5 (12.9-16.9) g/dL Hct 47.5 (37.5-50.1) % MCV 87.0 (83.0-100.0) fL MCH 30.2 (28.0-33.3) pg MCHC 34.7 (31.6-35.5) g/dL RDW 12.2 (11.5-14.5) % Plt Count 208 (140-400) K/mcL MPV 9.0 L (9.4-12.4) fL Immature Gran % 0.1 (0-4) % Seg Neutrophils % 79.5 % Lymphocytes % 14.1 % Monocytes % 5.7 % Eosinophils % 0.3 % Basophils % 0.3 % Neutrophils # 5.4 (1.6-8.9) K/mcL Lymphocytes # 1.0 (0.6-4.6) K/mcL Monocytes # 0.4 (0.0-1.3) K/mcL Eosinophils # 0.0 (0.0-0.6) K/mcL Basophils # 0.0 (0.0-0.2) K/mcL Immature Plt Fraction 2.3 (1.1-6.1) % Sodium 140 (136-145) mEq/L Potassium 4.3 (3.5-4.5) mEq/L Chloride 106 (98-109) mEq/L Carbon Dioxide 24 (19-29) mEq/L BUN 8 (8-26) mg/dL Creatinine 0.90 (0.72-1.25) mg/dL Est GFR ( Amer) > 60 (> 60) Est GFR (Non-Af Amer) > 60 (> 60) BUN/Creatinine Ratio 9 (6-26) Glucose 126 H (70-99) mg/dL Calculated Osmolality 290 (280-300) Calcium 10.1 (8.6-10.8) mg/dL TSH 1.302 (0.350-4.840) mcIU/mL Urine Color (Yellow) Urine Clarity (Clear) Urine pH (5.0-8.0) pH Units Ur Specific [place] (1.010-1.025) Urine Protein (Neg-Trace) mg/dL Urine Glucose (UA) (Normal) mg/dL Urine Ketones (Negative) mg/dL Urine Blood (Negative) Urine Nitrite (Negative) Urine Bilirubin (Negative) Urine Urobilinogen (Normal) mg/dL Ur Leukocyte Esterase (Negative) Urine Microscopic RBC (0-3) per hpf Urine Microscopic WBC (0-3) per hpf Ur Squamous Epith Cells (None-Few) per lpf Urine Bacteria (None-Few) per hpf Hyaline Casts (None-Few) per lpf Salicylates < 5.0 L (15-30) mg/dL Urine Opiates Screen (Gqibud=929) ng/mL Acetaminophen < 1.0 L (10-30) mcg/mL Ur Barbiturates Screen (Hrzvqa=187) ng/mL Ur Phencyclidine Scrn (Cutoff=25) ng/mL Ur Amphetamines Screen (Dderwd=4200) ng/mL U Benzodiazepines Scrn (Eccdsa=312) ng/mL [place] < 0.1 L (0.6-1.2) mEq/L Urine Cocaine Screen (Cutoff= 300) ng/mL U Marijuana (THC) Screen (Cutoff = 50) ng/mL Ethyl Alcohol < 10 (0-10) mg/dL 08/12/16 08/12/16 Range/Units 12:04 12:04 WBC (4.3-11.1) K/mcL RBC (4.19-5.50) M/mcL Hgb (12.9-16.9) g/dL Hct (37.5-50.1) % MCV (83.0-100.0) fL MCH (28.0-33.3) pg MCHC (31.6-35.5) g/dL RDW (11.5-14.5) % Plt Count (140-400) K/mcL MPV (9.4-12.4) fL Immature Gran % (0-4) % Seg Neutrophils % % Lymphocytes % % Monocytes % % Eosinophils % % Basophils % % Neutrophils # (1.6-8.9) K/mcL Lymphocytes # (0.6-4.6) K/mcL Monocytes # (0.0-1.3) K/mcL Eosinophils # (0.0-0.6) K/mcL Basophils # (0.0-0.2) K/mcL Immature Plt Fraction (1.1-6.1) % Sodium (136-145) mEq/L Potassium (3.5-4.5) mEq/L Chloride (98-109) mEq/L Carbon Dioxide (19-29) mEq/L BUN (8-26) mg/dL Creatinine (0.72-1.25) mg/dL Est GFR ( Amer) (> 60) Est GFR (Non-Af Amer) (> 60) BUN/Creatinine Ratio (6-26) Glucose (70-99) mg/dL Calculated Osmolality (280-300) Calcium (8.6-10.8) mg/dL TSH (0.350-4.840) mcIU/mL Urine Color Yellow (Yellow) Urine Clarity Clear (Clear) Urine pH 6.5 (5.0-8.0) pH Units Ur Specific [place] 1.029 H (1.010-1.025) Urine Protein 30 H (Neg-Trace) mg/dL Urine Glucose (UA) Normal (Normal) mg/dL Urine Ketones Trace H (Negative) mg/dL Urine Blood Negative (Negative) Urine Nitrite Negative (Negative) Urine Bilirubin Negative (Negative) Urine Urobilinogen Normal (Normal) mg/dL Ur Leukocyte Esterase Negative (Negative) Urine Microscopic RBC 0-3 (0-3) per hpf Urine Microscopic WBC 0-3 (0-3) per hpf Ur Squamous Epith Cells Many H (None-Few) per lpf Urine Bacteria None Seen (None-Few) per hpf Hyaline Casts None Seen (None-Few) per lpf Salicylates (15-30) mg/dL Urine Opiates Screen Negative (Atxusp=851) ng/mL Acetaminophen (10-30) mcg/mL Ur Barbiturates Screen Negative (Hdznfg=438) ng/mL Ur Phencyclidine Scrn Negative (Cutoff=25) ng/mL Ur Amphetamines Screen Negative (Bqxrql=9294) ng/mL U Benzodiazepines Scrn Negative (Nbwcez=552) ng/mL [place] (0.6-1.2) mEq/L Urine Cocaine Screen Negative (Cutoff= 300) ng/mL U Marijuana (THC) Screen Negative (Cutoff = 50) ng/mL Ethyl Alcohol (0-10) mg/dL Psychiatric Medical Clearance - Medical Clearance Checklist Medical History: No Social History Section defined Current Vitals: Last Vital Signs Temp 98.0 F 08/12/16 14:27 Pulse 129 08/12/16 14:27 Resp 18 08/12/16 14:27 BP 134/86 08/12/16 14:27 Pulse Ox 97 08/12/16 14:27 Psychiatric Lab Panel: Drug Levels and Toxicity 08/12/16 08/12/16 08/12/16 11:33 11:33 12:04 Urine Opiates Screen Negative Acetaminophen < 1.0 L Ur Barbiturates Screen Negative Ur Phencyclidine Scrn Negative Ur Amphetamines Screen Negative U Benzodiazepines Scrn Negative [place] < 0.1 L Urine Cocaine Screen Negative U Marijuana (THC) Screen Negative Ethyl Alcohol < 10 Abnormal Labs: Abnormal lab results MPV 9.0 fL (9.4-12.4) L 08/12/16 11:33 Glucose 126 mg/dL (70-99) H 08/12/16 11:33 Ur Specific [place] 1.029 (1.010-1.025) H 08/12/16 12:04 Urine Protein 30 mg/dL (Neg-Trace) H 08/12/16 12:04 Urine Ketones Trace mg/dL (Negative) H 08/12/16 12:04 Ur Squamous Epith Cells Many per lpf (None-Few) H 08/12/16 12:04 Salicylates < 5.0 mg/dL (15-30) L 08/12/16 11:33 Acetaminophen < 1.0 mcg/mL (10-30) L 08/12/16 11:33 [place] < 0.1 mEq/L (0.6-1.2) L 08/12/16 11:33 Statement of Medical Clearance: I have evaluated the patient, reviewed diagnostic information, and certify that the patient's medical condition is sufficiently stable that transfer to the psychiatric unit does not pose a significant risk of deterioration.
[2016-08-12] MEDS ORDERED: Lidocaine/EPI 1:100k 1% 20 ML VIAL IJ ONE (11:58)
[2016-08-12 11:59] LABS: Acetaminophen < 1.0 mcg/mL (10-30); BUN/Creatinine Ratio 9 (6-26); Blood Urea Nitrogen 8 mg/dL (8-26); Calcium 10.1 mg/dL (8.6-10.8); Carbon Dioxide 24 mEq/L (19-29); Chloride 106 mEq/L (98-109); Ethanol < 10 mg/dL (0-10); Glucose 126 mg/dL (70-99); Osmolality,Calculated 290 (280-300); Potassium 4.3 mEq/L (3.5-4.5); Salicylate < 5.0 mg/dL (15-30); Sodium 140 mEq/L (136-145); eGFR For African Americans > 60 (> 60); eGFR For Non-African Americans > 60 (> 60)
[2016-08-12 12:17] LABS: Bilirubin,Urine Negative (Negative); Blood,Urine Negative (Negative); Clarity,Urine Clear (Clear); Color,Urine Yellow (Yellow); Glucose,Urine (UA) Normal (Normal); Ketones,Urine Trace mg/dL (Negative); Leukocyte Esterase,Urine Negative (Negative); Nitrite,Urine Negative (Negative); PH,Urine 6.5 pH Units (5.0-8.0); Protein,Urine 30 mg/dL (Neg-Trace); Specific Gravity,Urine 1.029 (1.010-1.025); Urobilinogen,Urine Normal (Normal)
[2016-08-12 12:18] LABS: Thyroid Stimulating Hormone 1.302 mcIU/mL (0.350-4.840)
[2016-08-12 12:18] LABS: Amphetamine Screen,Urine Negative ng/mL (Cutoff=1000); Bacteria,Urine None Seen per hpf (None-Few); Barbiturate Screen,Urine Negative ng/mL (Cutoff=200); Benzodiazepines Screen,Urine Negative ng/mL (Cutoff=200); Cannabinoid Screen,Urine Negative ng/mL (Cutoff = 50); Cocaine Screen,Urine Negative ng/mL (Cutoff= 300); Hyaline Casts,Urine None Seen per lpf (None-Few); Opiate Screen,Urine Negative ng/mL (Cutoff=300); Phencyclidine Screen,Urine Negative ng/mL (Cutoff=25); RBC,Urine 0-3 per hpf (0-3); Squamous Epithelial Cell,Urine Many per lpf (None-Few); WBC,Urine 0-3 per hpf (0-3)
[2016-08-12] MEDS ORDERED: Ondansetron ODT 4 MG TAB.RAPDIS SL ONE (12:43)
[2016-08-12] MEDS ORDERED: Haloperidol Lactate 5 MG/ML VIAL IM PRN (16:19)
[2016-08-12] MEDS ORDERED: *HR* LORazepam 2 MG/ML VIAL IM PRN (16:19)
[2016-08-12] MEDS ORDERED: Acetaminophen 325 MG TABLET PO PRN (16:19)
[2016-08-12] MEDS ORDERED: hydrOXYzine pamoate 25 MG CAPSULE PO PRN (16:19)
[2016-08-12] MEDS: traZODone 50 MG TABLET PO PRN ×2 (20:55→23:42)
[2016-08-12] MEDS: *HR* LORazepam 1 MG TABLET PO PRN (23:42)
[2016-08-13] MEDS ORDERED: Divalproex (12 HR) 500 MG TABLET PO ONE (10:12)
--- NOTE | 2016-08-13 10:13 | Psychiatry History & Physical ---
Date of Encounter: 08/13/16 Time of Encounter: 10:07 History of Present Illness Patient Stated Chief Complaint: suicidal Medicare Admission Attestation: For traditional Medicare patients the provided hospital inpatient services are reasonable and necessary and in the case of services not specified as inpatient -only under 42 CFR 419.22 (n), that they are appropriately provided as inpatient services in accordance 42 CFR 412.3. For Critical Access Hospital the patient may reasonably be expected to be discharged or transferred to a hospital within 96 hours after admission to the Critical Access Hospital. Admitted From: Emergency Dept History of Present Illness: Mr. Loving is a 21 year old male admitted from the emergency room for decompensation and suicidal ideation. Patient was recently discharged from this unit by the end of July he did, he did not follow-up or take his medication as advised. The emergency room records indicate that patient had been living with her grandparents, he was agitated and aggressive religiously preoccupied and when police got involved he was combative and he punched a police car and police teased him. Patient is well known to this service from previous admission this would be his fifth admission was a diagnosis of schizoaffective disorder bipolar type, and he was noncompliant with medication consistently. On his last discharge he was given Prolixin Decanoate IM in addition to oral Prolixin. Past Med Surg Social Fam HX - Past Medical History Medical history: no medical history - Past Psychiatric History Psychiatric history: Reports: bipolar, schizophrenia, previous psychiatric hospitalization Family psychiatric history: Unknown Family History of Suicide: Unknown - Past Surgical History Surgical History: no surgical history - Social History Smoking Status: Never smoker Smokeless Tobacco Status: No Alcohol use: none Drug use: none Medications & Allergies Benztropine [Cogentin] 1 mg PO Q4H PRN #30 tablet 07/31/16 [Rx] Fluphenazine [Prolixin] 5 mg PO HS #5 tablet 07/31/16 [Rx] Allergies No Known Drug Allergies Allergy (Verified 08/12/16 11:05) See Comments not confirmed with patient, he will not answer Review of Systems Psychiatric: Reports: anxiety, suicidal ideation, confusion, irritability, other (Psychosis) Mental Status Exam Patient orientation: Yes Person, Yes Time, Yes Place Level of alertness: Sedated Patient appearance: Disheveled Additional observations: noted sutures on the chin. Behavior: nervous, suspicious Psychomotor activity: Slowed Eye contact: Intense Contact Mood description: Angry, Anxious, Irritable Affect description: blunted, flat, dysphoric Speech pattern: Normal rate, Normal rhythm, Normal tone, Impoverished Speech volume: Normal Thought process: Tangential, Flight of Ideas, Disorganized, Racing Thought content: Yes Suicidal ideation, Yes Preoccupation, Yes Paranoid delusion , Yes Advent delusion Perceptual disturbances: Yes Reacting to internal stimuli, Yes Auditory hallucinations, Yes Visual hallucinations Attention span: Unable to Focus Memory description: Immediate Impaired Patient reliability: Not Reliable Historian Intelligence estimate: Average Judgment: Poor Insight: None Results - Vital Signs Vital signs: Temp Pulse Resp BP Pulse Ox 98.4 F 101 16 124/92 97 08/12/16 20:53 08/12/16 20:53 08/12/16 20:53 08/12/16 20:53 08/12/16 14:27 - Labs Labs: Laboratory Last Values WBC 6.8 K/mcL (4.3-11.1) 08/12/16 11:33 RBC 5.46 M/mcL (4.19-5.50) 08/12/16 11:33 Hgb 16.5 g/dL (12.9-16.9) 08/12/16 11:33 Hct 47.5 % (37.5-50.1) 08/12/16 11:33 MCV 87.0 fL (83.0-100.0) 08/12/16 11:33 MCH 30.2 pg (28.0-33.3) 08/12/16 11:33 MCHC 34.7 g/dL (31.6-35.5) 08/12/16 11:33 RDW 12.2 % (11.5-14.5) 08/12/16 11:33 Plt Count 208 K/mcL (140-400) 08/12/16 11:33 MPV 9.0 fL (9.4-12.4) L 08/12/16 11:33 Immature Gran % 0.1 % (0-4) 08/12/16 11:33 Seg Neutrophils % 79.5 % 08/12/16 11:33 Lymphocytes % 14.1 % 08/12/16 11:33 Monocytes % 5.7 % 08/12/16 11:33 Eosinophils % 0.3 % 08/12/16 11:33 Basophils % 0.3 % 08/12/16 11:33 Neutrophils # 5.4 K/mcL (1.6-8.9) 08/12/16 11:33 Lymphocytes # 1.0 K/mcL (0.6-4.6) 08/12/16 11:33 Monocytes # 0.4 K/mcL (0.0-1.3) 08/12/16 11:33 Eosinophils # 0.0 K/mcL (0.0-0.6) 08/12/16 11:33 Basophils # 0.0 K/mcL (0.0-0.2) 08/12/16 11:33 Immature Plt Fraction 2.3 % (1.1-6.1) 08/12/16 11:33 Sodium 140 mEq/L (136-145) 08/12/16 11:33 Potassium 4.3 mEq/L (3.5-4.5) 08/12/16 11:33 Chloride 106 mEq/L (98-109) 08/12/16 11:33 Carbon Dioxide 24 mEq/L (19-29) 08/12/16 11:33 BUN 8 mg/dL (8-26) 08/12/16 11:33 Creatinine 0.90 mg/dL (0.72-1.25) 08/12/16 11:33 Est GFR ( Amer) > 60 (> 60) 08/12/16 11:33 Est GFR (Non-Af Amer) > 60 (> 60) 08/12/16 11:33 BUN/Creatinine Ratio 9 (6-26) 08/12/16 11:33 Glucose 126 mg/dL (70-99) H 08/12/16 11:33 Calculated Osmolality 290 (280-300) 08/12/16 11:33 Calcium 10.1 mg/dL (8.6-10.8) 08/12/16 11:33 TSH 1.302 mcIU/mL (0.350-4.840) 08/12/16 11:33 Urine Color Yellow (Yellow) 08/12/16 12:04 Urine Clarity Clear (Clear) 08/12/16 12:04 Urine pH 6.5 pH Units (5.0-8.0) 08/12/16 12:04 Ur Specific [place] 1.029 (1.010-1.025) H 08/12/16 12:04 Urine Protein 30 mg/dL (Neg-Trace) H 08/12/16 12:04 Urine Glucose (UA) Normal mg/dL (Normal) 08/12/16 12:04 Urine Ketones Trace mg/dL (Negative) H 08/12/16 12:04 Urine Blood Negative (Negative) 08/12/16 12:04 Urine Nitrite Negative (Negative) 08/12/16 12:04 Urine Bilirubin Negative (Negative) 08/12/16 12:04 Urine Urobilinogen Normal mg/dL (Normal) 08/12/16 12:04 Ur Leukocyte Esterase Negative (Negative) 08/12/16 12:04 Urine Microscopic RBC 0-3 per hpf (0-3) 08/12/16 12:04 Urine Microscopic WBC 0-3 per hpf (0-3) 08/12/16 12:04 Ur Squamous Epith Cells Many per lpf (None-Few) H 08/12/16 12:04 Urine Bacteria None Seen per hpf (None-Few) 08/12/16 12:04 Hyaline Casts None Seen per lpf (None-Few) 08/12/16 12:04 Salicylates < 5.0 mg/dL (15-30) L 08/12/16 11:33 Urine Opiates Screen Negative ng/mL (Epllaa=605) 08/12/16 12:04 Acetaminophen < 1.0 mcg/mL (10-30) L 08/12/16 11:33 Ur Barbiturates Screen Negative ng/mL (Rtrwff=458) 08/12/16 12:04 Ur Phencyclidine Scrn Negative ng/mL (Cutoff=25) 08/12/16 12:04 Ur Amphetamines Screen Negative ng/mL (Grikfi=5722) 08/12/16 12:04 U Benzodiazepines Scrn Negative ng/mL (Tznprp=895) 08/12/16 12:04 [place] < 0.1 mEq/L (0.6-1.2) L 08/12/16 11:33 Urine Cocaine Screen Negative ng/mL (Cutoff= 300) 08/12/16 12:04 U Marijuana (THC) Screen Negative ng/mL (Cutoff = 50) 08/12/16 12:04 Ethyl Alcohol < 10 mg/dL (0-10) 08/12/16 11:33 Assessment and Plan (1) Schizoaffective disorder, bipolar type Current visit: Yes Status: Acute Plan: Admit inpatient for safety and stabilization, Close observation, Suicide Precautions per unit protocol, Encourage participation in unit milieu, Group Therapy, Monitor sleep, Monitor appetite Additional Plan: We will order Prolixin Decanoate 25 mg IM and also start the patient on Depakote 500 mg twice daily to stabilize his psychosis. Risks, benefits, side effects, alternatives discussed w/pt: Yes Patient agreeable to treatment: Yes
[2016-08-13] MEDS: *HR* LORazepam 1 MG TABLET PO PRN (13:05)
[2016-08-13] MEDS: Divalproex (12 HR) 500 MG TABLET PO SCH (20:42)
[2016-08-14] MEDS ORDERED: *HR* LORazepam 2 MG/ML VIAL IM ONE (08:42)
[2016-08-14] MEDS ORDERED: *HR* LORazepam 1 MG TABLET PO ONE (08:42)
[2016-08-14] MEDS: Divalproex (12 HR) 500 MG TABLET PO SCH ×2 (10:11→21:10)
--- NOTE | 2016-08-14 11:09 | Psychiatry Progress Note ---
Date of Encounter: 08/15/16 Time of Encounter: 11:06 Subjective Interval history: Pt seen and evaluated. this mornign pt was restless and yelling at times with outbursts. Pt required prn meds due him pacing the hallways, yelling and screaming and was not redirectable. He received haldol 5 , ativan 2 and bendaryl IM and pt was able to calm down after that. Review of Systems Psychiatric: Reports: anxiety, suicidal ideation, confusion, irritability, other (Psychosis) Objective: Exam Patient orientation: Yes Person, Yes Time, Yes Place Level of alertness: Sedated Patient appearance: Disheveled Behavior: nervous, suspicious Psychomotor activity: Slowed Eye contact: Intense Contact Mood description: Angry, Anxious, Irritable Affect description: blunted, flat, dysphoric Speech pattern: Normal rate, Normal rhythm, Normal tone, Impoverished Speech volume: Normal Thought process: Tangential, Flight of Ideas, Disorganized, Racing Thought content: Yes Suicidal ideation, Yes Preoccupation, Yes Paranoid delusion , Yes Oriental Orthodox delusion Perceptual disturbances: Yes Reacting to internal stimuli, Yes Auditory hallucinations, Yes Visual hallucinations Judgment: Poor Insight: None Results - Vital Signs Vital Signs: Temp Pulse Resp BP Pulse Ox 99.3 F 93 14 135/96 97 08/13/16 21:00 08/13/16 21:00 08/13/16 21:00 08/13/16 21:00 08/12/16 14:27 Assessment and Plan (1) Psychosis Current visit: Yes Status: Acute Plan: Continue hospitalization, Close observation, Suicide Precautions per unit protocol, Encourage participation in unit milieu, Group Therapy, Monitor sleep, Monitor appetite, Family/Supportive other meeting Additional Plan: will consider starting invega so pt can get LA injection Risks, benefits, side effects, alternatives discussed w/pt: Yes (unable to discuss w pt) Patient agreeable to treatment: Yes (limited insight) Qualifiers: Psychosis type: schizoaffective disorder Schizoaffective disorder type: unspecified Qualified Code(s): F25.9 - Schizoaffective disorder, unspecified Consult Discharge Plan - Plan Referrals: [facility] [Outside] - 08/25/16 11:00 am (The above appointment is with Leticia Peters, counselor/medical case manager. You will also see Jana Ching, psychiatric prescriber, on 09/12/2016 at 11:00 AM.)
[2016-08-14] MEDS ORDERED: *HR* LORazepam 2 MG/ML VIAL IM PRN ×2 (16:16→16:37)
[2016-08-14] MEDS: *HR* LORazepam 1 MG TABLET PO PRN (16:47)
[2016-08-15] MEDS: *HR* LORazepam 1 MG TABLET PO PRN ×2 (09:41→16:00)
[2016-08-15] MEDS: Divalproex (12 HR) 500 MG TABLET PO SCH ×2 (09:42→21:53)
--- NOTE | 2016-08-15 10:39 | Psychiatry Progress Note ---
Date of Encounter: 08/15/16 Time of Encounter: 10:37 Subjective Interval history: Patient seen and evaluated. Today patient was much more cooperative with the evaluation he was much calmer and not having outbursts. Patient did get when necessary medication yesterday morning as well as yesterday afternoon of the Haldol and Ativan. Patient slept through most of the night and did not have any issues. Today patient was resistant to taking medication but with encouragement patient did agree to take medication. Patient continues to be paranoid at times. Patient continues to have limited insight and judgment into his illness. We will continue to monitor this patient's behavior while on unit. No side effects were reported by patient to medication. Review of Systems Psychiatric: Reports: anxiety, confusion, irritability, other (Psychosis). Denies: suicidal ideation Objective: Exam Patient orientation: Yes Person, Yes Time, Yes Place Level of alertness: Alert Patient appearance: Disheveled Behavior: nervous, suspicious Psychomotor activity: Increased Eye contact: Intense Contact Mood description: Angry, Anxious, Irritable Affect description: blunted, flat, dysphoric Speech pattern: Normal rate, Normal rhythm, Normal tone, Impoverished Speech volume: Normal Thought process: Tangential, Flight of Ideas, Disorganized, Racing Thought content: Yes Suicidal ideation, Yes Preoccupation, Yes Paranoid delusion , Yes Holiness delusion Perceptual disturbances: Yes Reacting to internal stimuli, Yes Auditory hallucinations, Yes Visual hallucinations Judgment: Poor Insight: None Results - Vital Signs Vital Signs: Temp Pulse Resp BP Pulse Ox 98.5 F 99 18 126/78 97 08/15/16 09:00 08/15/16 09:00 08/15/16 09:00 08/15/16 09:00 08/12/16 14:27 - Labs Labs: Laboratory Results - last 24 hr 08/14/16 10:57 Valproic Acid 28.34 L Assessment and Plan (1) Psychosis Current visit: Yes Status: Acute Plan: Continue hospitalization, Close observation, Suicide Precautions per unit protocol, Encourage participation in unit milieu, Group Therapy, Monitor sleep, Monitor appetite, Family/Supportive other meeting Additional Plan: 08/15: start invega 3 mg at 1300 and tomm will increase to 3 mg BID, will start low dose ativan to help wiht anxiety 08/14:will consider starting invega so pt can get LA injection Risks, benefits, side effects, alternatives discussed w/pt: Yes (unable to discuss w pt) Patient agreeable to treatment: Yes (limited insight) Qualifiers: Psychosis type: schizoaffective disorder Schizoaffective disorder type: unspecified Qualified Code(s): F25.9 - Schizoaffective disorder, unspecified Consult Discharge Plan - Plan Referrals: [facility] [Outside] - 08/25/16 11:00 am (The above appointment is with Leticia Peters, counselor/caser shoe parts. You will also see Jana Ching psychiatric prescriber, on 09/12/2016 at 11:00 AM.)
[2016-08-15] MEDS: *HR* LORazepam 0.5 MG TABLET PO SCH ×2 (15:48→21:53)
[2016-08-15] MEDS: traZODone 50 MG TABLET PO SCH (21:53)
[2016-08-16] MEDS: *HR* LORazepam 0.5 MG TABLET PO SCH ×3 (10:08→21:34)
[2016-08-16] MEDS: Divalproex (12 HR) 500 MG TABLET PO SCH ×2 (10:08→21:33)
--- NOTE | 2016-08-16 10:31 | Psychiatry Progress Note ---
Date of Encounter: 08/16/16 Time of Encounter: 10:29 Subjective Interval history: Patient was seen and evaluated this morning. Patient's case was discussed with treatment team this morning. On evaluation patient was hesitant to take his medications patient has required encouragement when taking his medication but does ultimately take his medication. Patient has not been as anxious and labile since admission. He does continue to be confused at times and talking to himself but much improved since admission patient has been tolerating his medication well with no side effects that have been observed by this provider or staff. When speaking with patient he denied hearing any voices or seeing anything that is not there. Patient's thought processes still continues to be bizarre at times and he is exhibiting some thought blocking. Patient has been eating his meals. Patient has not received any when necessary medications for agitation or aggression since yesterday. Patient does show insight into having some bowel drinks with other peers today he was observed asking another peer that was okay to turn the television off. Review of Systems Neurological: Denies: headache, weakness, numbness, paresthesias, confusion, memory loss, abnormal gait, vertigo Psychiatric: Reports: anxiety, confusion, difficulty concentrating, irritability , mood swings, other (Psychosis). Denies: suicidal ideation Objective: Exam Patient orientation: Yes Person, Yes Time, Yes Place Level of alertness: Alert Patient appearance: Disheveled Behavior: nervous, suspicious Psychomotor activity: Increased Eye contact: Intense Contact Mood description: Angry, Anxious, Irritable Affect description: blunted, flat, dysphoric Speech pattern: Normal rate, Normal rhythm, Normal tone, Impoverished Speech volume: Normal Thought process: Tangential, Flight of Ideas, Disorganized, Racing Thought content: Yes Suicidal ideation, Yes Preoccupation, Yes Paranoid delusion , Yes Adventist delusion Perceptual disturbances: Yes Reacting to internal stimuli, Yes Auditory hallucinations, Yes Visual hallucinations Judgment: Poor Insight: None Results - Vital Signs Vital Signs: Temp Pulse Resp BP Pulse Ox 97.8 F 114 20 123/82 97 08/16/16 08:35 08/16/16 08:35 08/16/16 08:35 08/16/16 08:35 08/12/16 14:27 Assessment and Plan (1) Psychosis Current visit: Yes Status: Acute Plan: Continue hospitalization, Close observation, Suicide Precautions per unit protocol, Encourage participation in unit milieu, Group Therapy, Monitor sleep, Monitor appetite, Family/Supportive other meeting Additional Plan: 08/16: increase invega 3 mg TID for psychosis. 08/15: start invega 3 mg at 1300 and tomm will increase to 3 mg BID, will start low dose ativan to help with anxiety 08/14:will consider starting invega so pt can get LA injection Risks, benefits, side effects, alternatives discussed w/pt: Yes (unable to discuss w pt) Patient agreeable to treatment: Yes (limited insight) Qualifiers: Psychosis type: schizoaffective disorder Schizoaffective disorder type: unspecified Qualified Code(s): F25.9 - Schizoaffective disorder, unspecified Consult Discharge Plan - Plan Referrals: [facility] [Outside] - 08/25/16 11:00 am (The above appointment is with Leticia Peters, counselor/case folder. You will also see Jana Ching, psychiatric prescriber, on 09/12/2016 at 11:00 AM.)
[2016-08-16] MEDS: traZODone 50 MG TABLET PO SCH (21:33)
--- NOTE | 2016-08-17 11:06 | Psychiatry Progress Note ---
Date of Encounter: 08/17/16 Time of Encounter: 11:03 Subjective Interval history: Patient seen and evaluated this morning. Patient did not come to see provider. Provider went to patient's room to have a discussion with patient. Patient was asleep on approach but was easily awoken. Patient was smiling and reported his mood as "okay" patient reports "I feel like I am getting better" patient continues to be resistant to take medication and requires a lot of encouragement. Patient did refuse this morning medication but we will continue to try. Patient did take all of his medication yesterday with a lot of encouragement. Patient has not been as hyperverbal and responding to internal stimuli as he was on admission. Patient has been attending groups and attempting to socialize with peers. Patient has at times been hyper zoroastrian and did have the holy Bible next to his bed. Appetite and sleep is good. No when necessary's have been required for agitation or aggression. Review of Systems Psychiatric: Reports: anxiety, difficulty concentrating, other (Psychosis). Denies: suicidal ideation Objective: Exam Patient orientation: Yes Person, Yes Time, Yes Place Level of alertness: Alert Patient appearance: Disheveled Behavior: nervous, suspicious Psychomotor activity: Increased Eye contact: Intense Contact Mood description: Anxious, Elevated, Euphoric, Expansive Affect description: flat, dysphoric Speech pattern: Normal rate, Normal rhythm, Normal tone, Impoverished Speech volume: Normal Thought process: Tangential, Flight of Ideas, Disorganized, Racing Thought content: Yes Suicidal ideation, Yes Preoccupation, Yes Paranoid delusion , Yes Hoahaoism delusion Perceptual disturbances: Yes Reacting to internal stimuli, Yes Auditory hallucinations, Yes Visual hallucinations Judgment: Poor Insight: None Results - Vital Signs Vital Signs: Temp Pulse Resp BP Pulse Ox 97.4 F L 111 18 114/77 97 08/17/16 09:00 08/17/16 09:00 08/17/16 09:00 08/17/16 09:00 08/12/16 14:27 Assessment and Plan (1) Psychosis Current visit: Yes Status: Acute Plan: Continue hospitalization, Close observation, Suicide Precautions per unit protocol, Encourage participation in unit milieu, Group Therapy, Monitor sleep, Monitor appetite, Family/Supportive other meeting Additional Plan: 08/17: adjust invega dosage and plan for injection sunday due to pt tolerating medication well. 08/16: increase invega 3 mg TID for psychosis. 08/15: start invega 3 mg at 1300 and tomm will increase to 3 mg BID, will start low dose ativan to help with anxiety 08/14:will consider starting invega so pt can get LA injection Risks, benefits, side effects, alternatives discussed w/pt: Yes (unable to discuss w pt) Patient agreeable to treatment: Yes (limited insight) Qualifiers: Psychosis type: schizoaffective disorder Schizoaffective disorder type: unspecified Qualified Code(s): F25.9 - Schizoaffective disorder, unspecified Consult Discharge Plan - Plan Referrals: [facility] [Outside] - 08/25/16 11:00 am (The above appointment is with Leticia Peters, counselor/trimming caser. You will also see Jana Ching, psychiatric prescriber, on 09/12/2016 at 11:00 AM.)
[2016-08-17] MEDS: *HR* LORazepam 0.5 MG TABLET PO SCH ×3 (11:30→20:27)
[2016-08-17] MEDS: Divalproex (12 HR) 500 MG TABLET PO SCH ×2 (11:30→20:28)
[2016-08-17] MEDS: traZODone 50 MG TABLET PO SCH (20:28)
[2016-08-18] MEDS: Divalproex (12 HR) 500 MG TABLET PO SCH ×2 (08:28→21:49)
[2016-08-18] MEDS: *HR* LORazepam 0.5 MG TABLET PO SCH ×3 (08:29→21:49)
--- NOTE | 2016-08-18 10:20 | Psychiatry Progress Note ---
Date of Encounter: 08/18/16 Time of Encounter: 10:17 Subjective Interval history: Patient seen and evaluated this morning patient was an bed on approach. Patient did not have any episodes of any outbursts yesterday. Patient slept well. Patient has been interacting more within the common milieu. At times patient is still seen responding to internal stimuli. Patient is not as bizarre and delusional as he was on admission. Appetite fair patient did take his medication after encouragement. Patient reports his mood as "okay". Review of Systems Psychiatric: Reports: anxiety, auditory hallucinations, difficulty concentrating , other (Psychosis). Denies: suicidal ideation Objective: Exam Patient orientation: Yes Person, Yes Time, Yes Place Level of alertness: Alert Patient appearance: Disheveled Behavior: calm, cooperative, anxious, restless, suspicious Psychomotor activity: Increased Eye contact: Maintains Eye Contact Mood description: Anxious, Elevated, Euphoric Affect description: flat, dysphoric Speech pattern: Normal rate, Normal rhythm, Normal tone, Impoverished Speech volume: Normal Thought process: Tangential, Flight of Ideas, Disorganized, Racing Thought content: Yes Suicidal ideation, Yes Preoccupation, Yes Paranoid delusion , Yes Gnosticist delusion Perceptual disturbances: Yes Reacting to internal stimuli, Yes Auditory hallucinations, Yes Visual hallucinations Judgment: Poor Insight: None Results - Vital Signs Vital Signs: Temp Pulse Resp BP Pulse Ox 98.2 F 109 14 132/86 97 08/17/16 20:35 08/17/16 20:35 08/17/16 20:35 08/17/16 20:35 08/12/16 14:27 Assessment and Plan (1) Psychosis Current visit: Yes Status: Acute Plan: Continue hospitalization, Close observation, Suicide Precautions per unit protocol, Encourage participation in unit milieu, Group Therapy, Monitor sleep, Monitor appetite, Family/Supportive other meeting Additional Plan: 08/18: order invega inj 234 mg and then on day 8 156 mg injection should be given then 117 monthly after that and dwould consider trinza inj if pt doing well on this. 08/17: adjust invega dosage and plan for injection sunday due to pt tolerating medication well. 08/16: increase invega 3 mg TID for psychosis. 08/15: start invega 3 mg at 1300 and tomm will increase to 3 mg BID, will start low dose ativan to help with anxiety 08/14:will consider starting invega so pt can get LA injection Risks, benefits, side effects, alternatives discussed w/pt: Yes (unable to discuss w pt) Patient agreeable to treatment: Yes (limited insight) Qualifiers: Psychosis type: schizoaffective disorder Schizoaffective disorder type: unspecified Qualified Code(s): F25.9 - Schizoaffective disorder, unspecified Consult Discharge Plan - Plan Referrals: [facility] [Outside] - 08/25/16 11:00 am (The above appointment is with Leticia Peters, counselor/lining caser. You will also see Jana Ching psychiatric prescriber, on 09/12/2016 at 11:00 AM.)
[2016-08-18] MEDS: traZODone 50 MG TABLET PO SCH (21:49)
[2016-08-19] MEDS: Divalproex (12 HR) 500 MG TABLET PO SCH ×2 (09:38→21:44)
[2016-08-19] MEDS: *HR* LORazepam 0.5 MG TABLET PO SCH ×3 (09:39→21:44)
[2016-08-19] MEDS ORDERED: INVEGA SUSTENNA 234 MG IM ONE (10:00)
--- NOTE | 2016-08-19 12:15 | Psychiatry Progress Note ---
Date of Encounter: 08/19/16 Time of Encounter: 12:14 Subjective Interval history: Patient seen and evaluated this morning. The patient was very bright and smiling on approach. Patient was showing this provider his drawings patient has been interacting with other patients and peers in the milieu. Patient has not had any outbursts and has not been responding to internal stimuli as much as he was went on admission. Patient has been compliant with his medication patient did get his injection of a vague A we will start to titrate on the oral Invega due to patient getting the injection today. Patient has been sleeping well appetite has been fair patient is doing much better since admission. Review of Systems Psychiatric: Reports: anxiety, auditory hallucinations, difficulty concentrating , other (Psychosis). Denies: suicidal ideation Objective: Exam Patient orientation: Yes Person, Yes Time, Yes Place Level of alertness: Alert Patient appearance: Disheveled Behavior: calm, cooperative, anxious, restless, suspicious Psychomotor activity: Increased Eye contact: Maintains Eye Contact Mood description: Anxious, Elevated, Euphoric Affect description: flat, dysphoric Speech pattern: Normal rate, Normal rhythm, Normal tone, Impoverished Speech volume: Normal Thought process: Tangential, Flight of Ideas, Disorganized, Racing Thought content: Yes Suicidal ideation, Yes Preoccupation, Yes Paranoid delusion , Yes Yazidism delusion Perceptual disturbances: Yes Reacting to internal stimuli, Yes Auditory hallucinations, Yes Visual hallucinations Judgment: Poor Insight: None Results - Vital Signs Vital Signs: Temp Pulse Resp BP Pulse Ox 97.7 F 121 16 123/78 97 08/19/16 09:00 08/19/16 09:00 08/19/16 09:00 08/19/16 09:00 08/12/16 14:27 Assessment and Plan (1) Psychosis Current visit: Yes Status: Acute Plan: Continue hospitalization, Close observation, Suicide Precautions per unit protocol, Encourage participation in unit milieu, Group Therapy, Monitor sleep, Monitor appetite, Family/Supportive other meeting Additional Plan: 08/19: decrease oral invega pt got inj today 08/18: order invega inj 234 mg and then on day 8 156 mg injection should be given then 117 monthly after that and dwould consider trinza inj if pt doing well on this. 08/17: adjust invega dosage and plan for injection sunday due to pt tolerating medication well. 08/16: increase invega 3 mg TID for psychosis. 08/15: start invega 3 mg at 1300 and tomm will increase to 3 mg BID, will start low dose ativan to help with anxiety 08/14:will consider starting invega so pt can get LA injection Risks, benefits, side effects, alternatives discussed w/pt: Yes (unable to discuss w pt) Patient agreeable to treatment: Yes (limited insight) Qualifiers: Psychosis type: schizoaffective disorder Schizoaffective disorder type: unspecified Qualified Code(s): F25.9 - Schizoaffective disorder, unspecified Consult Discharge Plan - Plan Additional Instructions: Patient was given Invega Sustenna 234mg on 08/19/2016. Patient is due to receive Invega Sustenna 156mg on 08/27/2016. Patient is due to receive Invega Sustenna 117mg on 09/18/2016. Referrals: [facility] [Outside] - 08/25/16 11:00 am (The above appointment is with Leticia Peters, counselor/telephonic nurse case manager. You will also see Jana Ching, psychiatric prescriber, on 09/12/2016 at 11:00 AM.)
[2016-08-19] MEDS: traZODone 50 MG TABLET PO SCH (21:43)
[2016-08-20] MEDS: Divalproex (12 HR) 500 MG TABLET PO SCH ×2 (09:36→21:21)
[2016-08-20] MEDS: *HR* LORazepam 0.5 MG TABLET PO SCH ×3 (09:37→21:21)
--- NOTE | 2016-08-20 09:44 | Psychiatry Progress Note ---
Date of Encounter: 08/20/16 Time of Encounter: 09:42 Subjective Interval history: Patient seen and evaluated this morning. Patient continues to be calm and cooperative. Patient has been medication compliant patient did get his N Espinoza injection and it seems as though patient is tolerating and vague Kev very well. This is been a very good change in patient's behavior since starting the N bake. Patient has not been as focused on his delusions. Patient denied SI or HI. Patient is gaining more insight into his illness as well as when he is having conversations with this provider and the staff. Patient has now been able to socialize and incorporate conversations with his social peers. Patient has been participating in group sessions well. Seems as though patient is tolerating and vague very well. Discussed with patient that the long-term treatment would be the three-month injection so patient would be able to stay compliant with medication. Patient was agreeable to this. Review of Systems Psychiatric: Reports: anxiety, auditory hallucinations, difficulty concentrating , other (Psychosis). Denies: suicidal ideation Objective: Exam Patient orientation: Yes Person, Yes Time, Yes Place Level of alertness: Alert Patient appearance: Disheveled Behavior: calm, cooperative, suspicious Psychomotor activity: Normal Eye contact: Maintains Eye Contact Mood description: Euthymic/stable Affect description: congruent with mood Speech pattern: Normal rate, Normal rhythm, Normal tone, Impoverished Speech volume: Normal Thought process: Intact Thought content: Yes Intact, Yes Preoccupation Judgment: Limited Insight: Partial Results - Vital Signs Vital Signs: Temp Pulse Resp BP Pulse Ox 98.0 F 93 16 116/71 97 08/19/16 21:00 08/19/16 21:00 08/19/16 21:00 08/19/16 21:00 08/12/16 14:27 Assessment and Plan (1) Psychosis Current visit: Yes Status: Acute Plan: Continue hospitalization, Close observation, Suicide Precautions per unit protocol, Encourage participation in unit milieu, Group Therapy, Monitor sleep, Monitor appetite, Family/Supportive other meeting Additional Plan: 08/20: decrease invega since pt got inj pt tolerating invega VERY well and has been doing so much better and has been stable on this. snf plan is for pt to get trinza inj 08/19: decrease oral invega pt got inj today 08/18: order invega inj 234 mg and then on day 8 156 mg injection should be given then 117 monthly after that and dwould consider trinza inj if pt doing well on this. 08/17: adjust invega dosage and plan for injection sunday due to pt tolerating medication well. 08/16: increase invega 3 mg TID for psychosis. 08/15: start invega 3 mg at 1300 and tomm will increase to 3 mg BID, will start low dose ativan to help with anxiety 08/14:will consider starting invega so pt can get LA injection Risks, benefits, side effects, alternatives discussed w/pt: Yes (unable to discuss w pt) Patient agreeable to treatment: Yes (limited insight) Qualifiers: Psychosis type: schizoaffective disorder Schizoaffective disorder type: unspecified Qualified Code(s): F25.9 - Schizoaffective disorder, unspecified Consult Discharge Plan - Plan Additional Instructions: Patient was given Invega Sustenna 234mg on 08/19/2016. Patient is due to receive Invega Sustenna 156mg on 08/27/2016. Patient is due to receive Invega Sustenna 117mg on 09/18/2016. Referrals: [facility] [Outside] - 08/25/16 11:00 am (The above appointment is with Leticia Peters, counselor/adult protective caseworker. You will also see Jana Ching, psychiatric prescriber, on 09/12/2016 at 11:00 AM.)
[2016-08-20] MEDS: traZODone 50 MG TABLET PO SCH (21:20)
[2016-08-21] MEDS: *HR* LORazepam 0.5 MG TABLET PO SCH ×3 (09:12→21:40)
[2016-08-21] MEDS: Divalproex (12 HR) 500 MG TABLET PO SCH ×2 (09:12→21:41)
--- NOTE | 2016-08-21 14:45 | Psychiatry Progress Note ---
Date of Encounter: 08/21/16 Time of Encounter: 14:41 Subjective Interval history: Patient is here for follow-up. Nursing staff reports he is not delusional, is tolerating medication, he has been cooperative and had no episodes of agitation. He is participating in some activities and appropriate when interacting with peers and staff. His dose of Invega is being adjusted by increasing injectable and reducing the oral form. He does not present any suicidal ideation and homicidal ideation . Review of Systems Psychiatric: Reports: anxiety, difficulty concentrating, other (Psychosis). Denies: suicidal ideation, homicidal ideation Objective: Exam Patient orientation: Yes Person, Yes Time, Yes Place Level of alertness: Alert Patient appearance: Appropriate, Well Groomed Behavior: calm, cooperative Psychomotor activity: Normal Eye contact: Maintains Eye Contact Mood description: Euthymic/stable Affect description: congruent with mood Speech pattern: Normal rate, Normal rhythm, Normal tone Speech volume: Normal Thought process: Intact Thought content: Yes Intact, No Suicidal ideation, No Homicidal ideation, No Overt delusions, Yes Preoccupation Perceptual disturbances: Yes Reacting to internal stimuli, Yes Auditory hallucinations, Yes Visual hallucinations Judgment: Limited Insight: Partial Results - Vital Signs Vital Signs: Temp Pulse Resp BP Pulse Ox 97.8 F 109 18 120/72 97 08/21/16 09:00 08/21/16 09:00 08/21/16 09:00 08/21/16 09:00 08/12/16 14:27 Assessment and Plan (1) Schizoaffective disorder, bipolar type Current visit: Yes Status: Acute Plan: Continue hospitalization, Close observation, Suicide Precautions per unit protocol, Encourage participation in unit milieu, Group Therapy, Monitor sleep, Monitor appetite Risks, benefits, side effects, alternatives discussed w/pt: Yes Patient agreeable to treatment: Yes Consult Discharge Plan - Plan Additional Instructions: Patient was given Invega Sustenna 234mg on 08/19/2016. Patient is due to receive Invega Sustenna 156mg on 08/27/2016. Patient is due to receive Invega Sustenna 117mg on 09/18/2016. Referrals: [facility] [Outside] - 08/25/16 11:00 am (The above appointment is with Leticia Peters, counselor/pillowcase cleaner. You will also see Jana Ching, psychiatric prescriber, on 09/12/2016 at 11:00 AM.)
[2016-08-21] MEDS: traZODone 50 MG TABLET PO SCH (21:40)
[2016-08-22] MEDS: *HR* LORazepam 0.5 MG TABLET PO SCH ×3 (08:09→21:46)
[2016-08-22] MEDS: Divalproex (12 HR) 500 MG TABLET PO SCH ×2 (08:10→21:46)
--- NOTE | 2016-08-22 14:02 | Psychiatry Progress Note ---
Date of Encounter: 08/22/16 Time of Encounter: 13:59 Subjective Interval history: Patient is seen for follow-up. Nursing and social work notes reviewed. Patient is doing well on medication is not displaying any paranoia or delusional thinking is not hallucinating and denied any suicidal thoughts. He interacts appropriately with staff and peers. He participated in group and activities and had no incidence of agitation or disruptive behavior. His hygiene and grooming improved significantly. His discharge plans are finalized by social work. Valproic acid level 28. subtherapeutic Review of Systems Psychiatric: Reports: anxiety, difficulty concentrating, other (Psychosis). Denies: suicidal ideation, homicidal ideation Objective: Exam Patient orientation: Yes Person, Yes Time, Yes Place Level of alertness: Alert Patient appearance: Appropriate, Well Groomed Behavior: calm, cooperative Psychomotor activity: Normal Eye contact: Maintains Eye Contact Mood description: Euthymic/stable Affect description: congruent with mood Speech pattern: Normal rate, Normal rhythm, Normal tone, Clear Speech volume: Normal Thought process: Intact Thought content: Yes Intact, No Suicidal ideation, No Homicidal ideation, No Overt delusions, Yes Preoccupation Perceptual disturbances: No Auditory hallucinations, No Visual hallucinations Judgment: Limited Insight: Partial Results - Vital Signs Vital Signs: Temp Pulse Resp BP Pulse Ox 97.6 F 116 16 109/72 97 08/22/16 09:00 08/22/16 09:00 08/22/16 09:00 08/22/16 09:00 08/12/16 14:27 Assessment and Plan (1) Schizoaffective disorder, bipolar type Current visit: Yes Status: Acute Plan: Continue hospitalization, Close observation, Suicide Precautions per unit protocol, Encourage participation in unit milieu, Group Therapy, Monitor sleep, Monitor appetite Risks, benefits, side effects, alternatives discussed w/pt: Yes Patient agreeable to treatment: Yes Consult Discharge Plan - Plan Additional Instructions: Patient was given Invega Sustenna 234mg on 08/19/2016. Patient is due to receive Invega Sustenna 156mg on 08/27/2016. Patient is due to receive Invega Sustenna 117mg on 09/18/2016. Referrals: [facility] [Outside] - 08/25/16 11:00 am (The above appointment is with Leticia Peters, counselor/case packer and sealer. You will also see Jana [place], psychiatric prescriber, on 09/12/2016 at 11:00 AM.)
[2016-08-22] MEDS: traZODone 50 MG TABLET PO SCH (21:45)
[2016-08-23] MEDS: *HR* LORazepam 0.5 MG TABLET PO SCH (08:57)
[2016-08-23] MEDS: Divalproex (12 HR) 500 MG TABLET PO SCH (08:59)
[2016-08-23 10:02] VITALS: BP 119/77
--- NOTE | 2016-08-23 11:26 | Discharge Summary ---
Date of Encounter: 08/23/16 Time of Encounter: 11:15 Diagnosis - Discharge Diagnosis (1) Schizoaffective disorder, bipolar type Status: Acute Medications - Discharge Medications Prescriptions: Benztropine [Cogentin] 1 mg PO Q4H PRN #30 tablet PRN Reason: EPS/Muscle Stiffness Divalproex (12 HR) [Depakote (12 HR)] 500 mg PO BID #60 tablet. Fluphenazine [Prolixin] 5 mg PO HS #60 tablet Paliperidone [Invega] 3 mg PO DAILY #30 tab.er.24 Paliperidone Palmitate [Invega Sustenna] 156 mg IM Q2W #1 syringe Benztropine [Cogentin] 1 mg PO Q4H PRN #30 tablet 08/23/16 [Rx] Divalproex (12 HR) [Depakote (12 HR)] 500 mg PO BID #60 tablet. 08/23/16 [Rx] Fluphenazine [Prolixin] 5 mg PO HS #60 tablet 08/23/16 [Rx] Paliperidone Palmitate [Invega Sustenna] 156 mg IM Q2W #1 syringe 08/23/16 [Rx] Paliperidone [Invega] 3 mg PO DAILY #30 tab.er.24 08/23/16 [Rx] Allergies No Known Drug Allergies Allergy (Verified 08/12/16 11:05) See Comments not confirmed with patient, he will not answer Results Procedures and tests throughout hospitalization: Completed Lab Orders Category Date Time Status Valproate Routine Lab 08/14/16 10:57 Completed Provider Date of admission: 08/12/16 16:03 Primary care physician: PCP NO Discharging clinician: Farhad Swanson Assessment and Plan - Patient/Caregiver Discharge Instructions Activity: resume usual activities as tolerated Diet: regular diet Additional Instructions: Patient was given Invega Sustenna 234mg on 08/19/2016. Patient is due to receive Invega Sustenna 156mg on 08/27/2016. Patient is due to receive Invega Sustenna 117mg on 09/18/2016. - Follow up Plan Follow up with: [facility] [Outside] - 08/25/16 11:00 am (The above appointment is with Leticia Peters, counselor/case liner. You will also see Jana Ching, psychiatric prescriber, on 09/12/2016 at 11:00 AM.) Functional capacity at discharge: independent ambulation Overall status at discharge: Stable Disposition: Home, Self-Care Hospital Course Hospital course: Mr. Loving is a 21 year old male admitted from the emergency room for evaluation and treatment schizoaffective disorder bipolar type noncompliance with medication. Previous agitation and psychosis in addition to being combative with police. For details of admission please see H&P On the units patient was stabilized on his medication including injectable long- acting Invega and oral medication. He responded well to medication, his Depakote level was low at 28 due to his noncompliance. Patient improved, his hygiene and grooming improved he was able to participate in groups and activities, he interacted appropriately with peers and staff. He did not experience any agitation or combativeness. His sleep and appetite stabilized. He denied any suicidal or homicidal ideation and was not experiencing any hallucinations. Prior to discharge he was medically stable on medication, he did not display any overt psychosis. His discharge plans were completed by social worker psychiatric and we sent a letter to the court to waive his court appearance. - Time Spent with Patient Total time spent providing and/or coordinating discharge services: Greater than 30 minutes Quality - Multiple Antipsychotics Patient discharged on 2 or more antipsychotic medications: No Procedures - Procedures Procedures: Medication Management, Crisis Stabilization, Supportive Therapy, Group Therapy, Psychoeducational Therapy Mental Status Exam - Mental Status Exam Patient orientation: Yes Person, Yes Time, Yes Place Level of alertness: Alert Patient appearance: Appropriate, Well Groomed Behavior: calm, cooperative Psychomotor activity: Normal Eye contact: Maintains Eye Contact Mood description: Euthymic/stable Affect description: congruent with mood Speech pattern: Normal rate, Normal rhythm, Normal tone, Clear Speech Volume: Normal Thought process: Intact Thought Content: Yes Intact, No Suicidal ideation, No Homicidal ideation, No Overt delusions, Yes Preoccupation Perceptual Disturbances: No Auditory hallucinations, No Visual hallucinations Judgment: Limited Insight: Partial
== END 2016-08-23 13:20 | disposition home or self-care (01) | DRG 750 ==
LOC: EMEROO 10:52 → 1ANU 16:03
PROVIDERS: ADMIT Psychiatry & Neurology Psychiatry; ATTEND Psychiatry & Neurology Psychiatry

== ENCOUNTER 2016-09-19 18:32 | Inpatient (IN) ==
--- NOTE | 2016-09-19 19:56 | Emergency Department Note ---
Disposition Clinical Impression: History of schizophrenia, History of bipolar disorder, Encounter for medication adjustment Disposition: Admitted As Inpatient Condition: Good Time of Disposition: 23:13 (Admitted to 1A) Psych HPI - General Chief Complaint: ED Psychiatric Symptoms Stated Complaint: Needs meds Time Seen by Provider: 09/19/16 19:29 Source: patient Mode of arrival: ambulatory Limitations: no limitations Nursing Notes Reviewed: Yes Vital Signs Reviewed: Yes - History of Present Illness HPI Narrative: Patient is a 21-year-old male with schizophrenia, bipolar disorder. He presents today due to "memory loss. "Patient states that over the past couple days, he has had trouble remembering things that he reads. He was concerned that his medications were causing these side effects and he stopped taking all of his psychiatric medications. He is unable to tell me what medications he usually takes. He has had multiple previous admissions to [facility] in the past. Currently denies any chest pain, shortness breath, nausea, vomiting, fevers, abdominal pain, suicidal ideation, homicidal ideation, visual or auditory hallucinations. - Related Data Previous Rx's Medication Instructions Recorded Benztropine [Cogentin] 1 mg PO Q4H PRN #30 tablet 08/23/16 Divalproex (12 HR) [Depakote (12 500 mg PO BID #60 tablet.dr 08/23/16 HR)] Fluphenazine [Prolixin] 5 mg PO HS #60 tablet 08/23/16 Paliperidone Palmitate [Invega 156 mg IM Q2W #1 syringe 08/23/16 Sustenna] Paliperidone [Invega] 3 mg PO DAILY #30 tab.er.24 08/23/16 Allergies Allergy/AdvReac Type Severity Reaction Status Date / Time No Known Drug Allergies Allergy See Verified 08/12/16 11:05 Comments Constitutional: Denies: fever Eyes: Denies: eye pain ENT ED: Denies: ear pain Cardiovascular: Denies: chest pain, palpitations Respiratory: Denies: cough, dyspnea, wheezes Gastrointestinal: Denies: abdominal pain, nausea, vomiting, diarrhea Genitourinary: Denies: urgency, dysuria, frequency, hematuria Musculoskeletal: Denies: back pain, neck pain Integumentary: Denies: rash Neurological: Denies: headache, weakness Psychiatric: Reports: other. Denies: suicidal thoughts, homicidal thoughts, auditory hallucinations, visual hallucinations Endocrine: Denies: fatigue Past Medical History - Past Medical History Attestation: Yes The following information was validated with the patient. Medical history: Reports: asthma Surgical history: Reports: no surgical history Psychiatric history: Reports: bipolar, schizophrenia, previous psychiatric hospitalization - Social History Smoking Status: Never smoker Smokeless Tobacco Status: No Alcohol use: Reports: none Drug use: Reports: none Physical Exam - General Limitations: no limitations General appearance: alert - Head Head exam: atraumatic, normocephalic, normal inspection - Eye Eye exam: Present: normal appearance, PERRL, EOMI - ENT ENT exam: normal exam, normal oropharynx, mucous membranes moist - Neck Neck exam: Present: normal inspection, full ROM, trachea midline - Chest Chest inspection: Present: normal inspection, symmetric chest wall rise - Respiratory Respiratory exam: Present: normal lung sounds bilaterally - Cardiovascular Cardiovascular exam: Present: regular rate, normal rhythm, normal heart sounds - Abdominal Exam Abdominal exam: Present: soft, Non-Tender. Absent: tenderness, distention, guarding, rebound, rigidity - Extremities Exam Extremities exam: Present: normal inspection, full ROM. Absent: tenderness, pedal edema - Back Exam Back exam: Present: normal inspection, full ROM. Absent: tenderness - Neurological Exam Neurological exam: Present: alert, oriented X3 - Psychiatric Psychiatric exam: Present: flat affect, other (Patient has a very flat affect on exam, occasionally giggles throughout the exam. He somewhat confused when trying to answer questions about meds .) - Skin Skin exam: Present: warm, dry, intact, normal color Course Course Narrative: Vitals within normal limits. Patient has a very flat affect on exam, slow to answer questions, giggling inappropriately throughout the exam. Unable to tell you what medicines he is on. Has not been taking his medicines for the past 2- 3 days. Otherwise, no somatic complaints except for difficulty with memory. We will obtain psychiatric clearance labs and then consult 1A. 22:01 labs negative, medically cleared. Psychiatry has been called to evaluate the patient. 22:50 1A has recommended admission and pink slip for patient. [place] slip placed on chart. Vital Signs Temperature 97.6 F 09/19/16 18:46 Pulse Rate 80 09/19/16 18:46 Respiratory Rate 16 09/19/16 18:46 Blood Pressure 159/83 09/19/16 18:46 O2 Sat by Pulse Oximetry 98 09/19/16 18:46 Temperature 97.6 F 09/19/16 22:34 Pulse Rate 81 09/19/16 22:34 Respiratory Rate 16 09/19/16 22:34 Blood Pressure 135/82 09/19/16 22:34 O2 Sat by Pulse Oximetry 98 09/19/16 22:34 Oxygen Delivery Oxygen Delivery Room Air Psych - MDM Narrative Medical decision making narrative: Vitals within normal limits. Patient has a very flat affect on exam, slow to answer questions, giggling inappropriately throughout the exam. Unable to tell you what medicines he is on. Has not been taking his medicines for the past 2- 3 days. Otherwise, no somatic complaints except for difficulty with memory. We will obtain psychiatric clearance labs and then consult 1A. 22:01 labs negative, medically cleared. Psychiatry has been called to evaluate the patient. 22:50 1A has recommended admission and pink slip for patient. [place] slip placed on chart. - Lab Data Lab results reviewed: Yes I reviewed the patient's lab results. Result diagrams: 09/19/16 20:26 09/19/16 20:26 Lab Results 09/19/16 09/19/16 09/19/16 Range/Units 19:30 19:30 20:26 WBC 4.5 (4.3-11.1) K/mcL RBC 5.15 (4.19-5.50) M/mcL Hgb 15.4 (12.9-16.9) g/dL Hct 46.3 (37.5-50.1) % MCV 89.9 (83.0-100.0) fL MCH 29.9 (28.0-33.3) pg MCHC 33.3 (31.6-35.5) g/dL RDW 12.3 (11.5-14.5) % Plt Count 167 (140-400) K/mcL MPV 9.7 (9.4-12.4) fL Immature Gran % 0.2 (0-4) % Seg Neutrophils % 51.4 % Lymphocytes % 27.8 % Monocytes % 18.9 % Eosinophils % 1.3 % Basophils % 0.4 % Neutrophils # 2.3 (1.6-8.9) K/mcL Lymphocytes # 1.3 (0.6-4.6) K/mcL Monocytes # 0.9 (0.0-1.3) K/mcL Eosinophils # 0.1 (0.0-0.6) K/mcL Basophils # 0.0 (0.0-0.2) K/mcL Sodium (136-145) mEq/L Potassium (3.5-4.5) mEq/L Chloride (98-109) mEq/L Carbon Dioxide (19-29) mEq/L BUN (8-26) mg/dL Creatinine (0.72-1.25) mg/dL Est GFR ( Amer) (> 60) Est GFR (Non-Af Amer) (> 60) BUN/Creatinine Ratio (6-26) Glucose (70-99) mg/dL Calculated Osmolality (280-300) Calcium (8.6-10.8) mg/dL Urine Color Yellow (Yellow) Urine Clarity Clear (Clear) Urine pH 6.5 (5.0-8.0) pH Units Ur Specific [place] 1.005 L (1.010-1.025) Urine Protein Negative (Neg-Trace) mg/dL Urine Glucose (UA) Normal (Normal) mg/dL Urine Ketones Negative (Negative) mg/dL Urine Blood Negative (Negative) Urine Nitrite Negative (Negative) Urine Bilirubin Negative (Negative) Urine Urobilinogen Normal (Normal) mg/dL Ur Leukocyte Esterase Negative (Negative) Salicylates (15-30) mg/dL Urine Opiates Screen Negative (Ctcswa=981) ng/mL Acetaminophen (10-30) mcg/mL Ur Barbiturates Screen Negative (Hijgil=908) ng/mL Ur Phencyclidine Scrn Negative (Cutoff=25) ng/mL Ur Amphetamines Screen Negative (Qyneve=9063) ng/mL U Benzodiazepines Scrn Negative (Rvxzqm=900) ng/mL Urine Cocaine Screen Negative (Cutoff= 300) ng/mL U Marijuana (THC) Screen Negative (Cutoff = 50) ng/mL Ethyl Alcohol (0-10) mg/dL 09/19/16 Range/Units 20:26 WBC (4.3-11.1) K/mcL RBC (4.19-5.50) M/mcL Hgb (12.9-16.9) g/dL Hct (37.5-50.1) % MCV (83.0-100.0) fL MCH (28.0-33.3) pg MCHC (31.6-35.5) g/dL RDW (11.5-14.5) % Plt Count (140-400) K/mcL MPV (9.4-12.4) fL Immature Gran % (0-4) % Seg Neutrophils % % Lymphocytes % % Monocytes % % Eosinophils % % Basophils % % Neutrophils # (1.6-8.9) K/mcL Lymphocytes # (0.6-4.6) K/mcL Monocytes # (0.0-1.3) K/mcL Eosinophils # (0.0-0.6) K/mcL Basophils # (0.0-0.2) K/mcL Sodium 139 (136-145) mEq/L Potassium 3.7 (3.5-4.5) mEq/L Chloride 107 (98-109) mEq/L Carbon Dioxide 23 (19-29) mEq/L BUN 9 (8-26) mg/dL Creatinine 0.97 (0.72-1.25) mg/dL Est GFR ( Amer) > 60 (> 60) Est GFR (Non-Af Amer) > 60 (> 60) BUN/Creatinine Ratio 9 (6-26) Glucose 95 (70-99) mg/dL Calculated Osmolality 286 (280-300) Calcium 8.9 (8.6-10.8) mg/dL Urine Color (Yellow) Urine Clarity (Clear) Urine pH (5.0-8.0) pH Units Ur Specific [place] (1.010-1.025) Urine Protein (Neg-Trace) mg/dL Urine Glucose (UA) (Normal) mg/dL Urine Ketones (Negative) mg/dL Urine Blood (Negative) Urine Nitrite (Negative) Urine Bilirubin (Negative) Urine Urobilinogen (Normal) mg/dL Ur Leukocyte Esterase (Negative) Salicylates < 5.0 L (15-30) mg/dL Urine Opiates Screen (Ttgklg=914) ng/mL Acetaminophen < 1.0 L (10-30) mcg/mL Ur Barbiturates Screen (Vsrafb=776) ng/mL Ur Phencyclidine Scrn (Cutoff=25) ng/mL Ur Amphetamines Screen (Ybzxlj=1316) ng/mL U Benzodiazepines Scrn (Ldccna=387) ng/mL Urine Cocaine Screen (Cutoff= 300) ng/mL U Marijuana (THC) Screen (Cutoff = 50) ng/mL Ethyl Alcohol < 10 (0-10) mg/dL Psychiatric Medical Clearance - Medical Clearance Checklist Does the patient have a NEW psychiatric condition?: No Any abnormalities indicating possible medical illness?: No Any history of medical issues?: No Medical History: No Social History Section defined Any abnormal vital signs prior to transfer?: No Current Vitals: Last Vital Signs Temp 97.6 F 09/19/16 22:34 Pulse 81 09/19/16 22:34 Resp 16 09/19/16 22:34 BP 135/82 09/19/16 22:34 Pulse Ox 98 09/19/16 22:34 Is the patient intoxicated or cognitively impaired?: No Psychiatric Lab Panel: Drug Levels and Toxicity 09/19/16 09/19/16 19:30 20:26 Urine Opiates Screen Negative Acetaminophen < 1.0 L Ur Barbiturates Screen Negative Ur Phencyclidine Scrn Negative Ur Amphetamines Screen Negative U Benzodiazepines Scrn Negative Urine Cocaine Screen Negative U Marijuana (THC) Screen Negative Ethyl Alcohol < 10 Any abnormalities on the physical exam?: No Any abnormal labs?: No Abnormal Labs: Abnormal lab results Ur Specific [place] 1.005 (1.010-1.025) L 09/19/16 19:30 Salicylates < 5.0 mg/dL (15-30) L 09/19/16 20:26 Acetaminophen < 1.0 mcg/mL (10-30) L 09/19/16 20:26 Does the patient require durable medical equiptment?: No Is the patient ambulatory?: Yes Is the patient a fall risk?: No Has the patient been medically cleared?: Yes Any acute medical condition require Tx prior to transfer?: No Statement of Medical Clearance: I have evaluated the patient, reviewed diagnostic information, and certify that the patient's medical condition is sufficiently stable that transfer to the psychiatric unit does not pose a significant risk of deterioration. SLudy - SLudy Situation: Demographics, MOA Background: Presenting Complaint, Relevant PMH, Meds, & Allergies Assessment: Vital Signs, Course and respsone to treatment, Exam Concerns, Patient/Family Expectation, Pertinant Lab Results, Outstanding Labs Recommendation: Barrier(s) to disposition, Recommendation based on pending studies, treatments, or consults April Repor Time: 22:37 Attestation Statement - Attestation Attestation: I examined this patient and my medical decision-making was reviewed with the MANUFACTURING PROJECT MANAGER/PA/Advanced Practice Nurse/Resident Physician. I agree with the documented findings, disposition and treatment plan as described except to the extent set forth below. Patient emergency department. Patient stopped taking his psych meds because he thought it was getting a memory problems. States that he just wants to read the Bible and preach. On exam he is flat. Awake alert in no distress. Heart regular lungs clear. Plan. Medical clearance one a evaluation.
[2016-09-19 20:03] LABS: Bilirubin,Urine Negative (Negative); Blood,Urine Negative (Negative); Clarity,Urine Clear (Clear); Color,Urine Yellow (Yellow); Glucose,Urine (UA) Normal (Normal); Ketones,Urine Negative (Negative); Leukocyte Esterase,Urine Negative (Negative); Nitrite,Urine Negative (Negative); PH,Urine 6.5 pH Units (5.0-8.0); Protein,Urine Negative (Neg-Trace); Specific Gravity,Urine 1.005 (1.010-1.025); Urobilinogen,Urine Normal (Normal)
[2016-09-19 20:09] LABS: Amphetamine Screen,Urine Negative ng/mL (Cutoff=1000); Barbiturate Screen,Urine Negative ng/mL (Cutoff=200); Benzodiazepines Screen,Urine Negative ng/mL (Cutoff=200); Cannabinoid Screen,Urine Negative ng/mL (Cutoff = 50); Cocaine Screen,Urine Negative ng/mL (Cutoff= 300); Opiate Screen,Urine Negative ng/mL (Cutoff=300); Phencyclidine Screen,Urine Negative ng/mL (Cutoff=25)
[2016-09-19 20:53] LABS: Basophils % 0.4 %; Eosinophils # 0.1 K/mcL (0.0-0.6); Eosinophils % 1.3 %; Hematocrit 46.3 % (37.5-50.1); Hemoglobin 15.4 g/dL (12.9-16.9); Immature Granulocytes % 0.2 % (0-4); Lymphocytes # 1.3 K/mcL (0.6-4.6); Lymphocytes % 27.8 %; Mean Corpuscular HGB Conc 33.3 g/dL (31.6-35.5); Mean Corpuscular Hemoglobin 29.9 pg (28.0-33.3); Mean Corpuscular Volume 89.9 fL (83.0-100.0); Mean Platelet Volume 9.7 fL (9.4-12.4); Monocytes # 0.9 K/mcL (0.0-1.3); Monocytes % 18.9 %; Neutrophils # 2.3 K/mcL (1.6-8.9); Platelet Count 167 K/mcL (140-400); Red Blood Count 5.15 M/mcL (4.19-5.50); Red Cell Distribution Width 12.3 % (11.5-14.5); Segmented Neutrophils % 51.4 %
[2016-09-19 21:07] LABS: BUN/Creatinine Ratio 9 (6-26); Blood Urea Nitrogen 9 mg/dL (8-26); Calcium 8.9 mg/dL (8.6-10.8); Carbon Dioxide 23 mEq/L (19-29); Chloride 107 mEq/L (98-109); Glucose 95 mg/dL (70-99); Osmolality,Calculated 286 (280-300); Potassium 3.7 mEq/L (3.5-4.5); Sodium 139 mEq/L (136-145); eGFR For African Americans > 60 (> 60); eGFR For Non-African Americans > 60 (> 60)
[2016-09-19 21:08] LABS: Acetaminophen < 1.0 mcg/mL (10-30); Ethanol < 10 mg/dL (0-10); Salicylate < 5.0 mg/dL (15-30)
[2016-09-19] MEDS ORDERED: Haloperidol Lactate 5 MG/ML VIAL IM PRN (22:51)
[2016-09-19] MEDS ORDERED: *HR* LORazepam 2 MG/ML VIAL IM PRN (22:51)
[2016-09-19] MEDS ORDERED: Ibuprofen 400 MG TABLET PO PRN (22:51)
[2016-09-19] MEDS ORDERED: traZODone 50 MG TABLET PO PRN (22:51)
[2016-09-19] MEDS ORDERED: hydrOXYzine pamoate 25 MG CAPSULE PO PRN (22:51)
[2016-09-19] MEDS ORDERED: MOM Conc 10 ML UD.LIQ PO PRN (22:51)
[2016-09-19] MEDS ORDERED: Mag Hydrox/Al Hydrox/Simeth 30 ML UDC PO PRN (22:51)
[2016-09-19] MEDS ORDERED: *HR* LORazepam 1 MG TABLET PO PRN (22:51)
--- NOTE | 2016-09-20 10:01 | Psychiatry History & Physical ---
Date of Encounter: 09/20/16 Time of Encounter: 09:56 History of Present Illness Medicare Admission Attestation: For traditional Medicare patients the provided hospital inpatient services are reasonable and necessary and in the case of services not specified as inpatient -only under 42 CFR 419.22 (n), that they are appropriately provided as inpatient services in accordance 42 CFR 412.3. For Critical Access Hospital the patient may reasonably be expected to be discharged or transferred to a hospital within 96 hours after admission to the Critical Access Hospital. Admitted From: Emergency Dept History of Present Illness: Mr. Loving is a 21 year old male admitted from the emergency room for exacerbation of schizoaffective disorder bipolar type with delusions and paranoia patient was concerned that medication is affecting his memory and he cannot remember what he reads so he stopped all his medication for the past week. Patient was recently discharged from this unit after stabilization on medication including longer acting antipsychotic Invega. Patient presented with paranoid delusions, mu-ism preoccupation and lack of insights into his illness. Past Med Surg Social Fam HX - Past Medical History Medical history: asthma - Past Psychiatric History Psychiatric history: Reports: bipolar, schizophrenia, previous psychiatric hospitalization Past psychiatric history details: Recently discharged from [facility] with similar presentation. - Past Surgical History Surgical History: no surgical history - Social History Smoking Status: Never smoker Smokeless Tobacco Status: No Alcohol use: none Drug use: none Medications & Allergies Benztropine [Cogentin] 1 mg PO Q4H PRN #30 tablet 08/23/16 [Rx] Divalproex (12 HR) [Depakote (12 HR)] 500 mg PO BID #60 tablet. 08/23/16 [Rx] Fluphenazine [Prolixin] 5 mg PO HS #60 tablet 08/23/16 [Rx] Paliperidone Palmitate [Invega Sustenna] 156 mg IM Q2W #1 syringe 08/23/16 [Rx] Paliperidone [Invega] 3 mg PO DAILY #30 tab.er.24 08/23/16 [Rx] Allergies No Known Drug Allergies Allergy (Verified 08/12/16 11:05) See Comments not confirmed with patient, he will not answer Review of Systems Psychiatric: Reports: confusion, difficulty concentrating, other (paranoid delusions) Mental Status Exam Patient orientation: Yes Person, Yes Time, Yes Place Level of alertness: Alert Patient appearance: Appropriate, Well Groomed Behavior: calm, cooperative Psychomotor activity: Normal Eye contact: Intense Contact Mood description: Euthymic/stable Affect description: congruent with mood, euphoric, blunted Speech pattern: Normal rate, Normal rhythm, Clear, Repetitive, Impoverished Speech volume: Normal Thought process: Tangential, Flight of Ideas, [place] Thought content: Yes Homicidal ideation, Yes Overt delusions, Yes Ideas of reference, Yes Paranoid delusion, Yes Rastafarian delusion Perceptual disturbances: Yes Auditory hallucinations, No Visual hallucinations Attention span: Unable to Sustain Attention Memory description: Grossly Intact, Recent Impaired Patient reliability: Questionable Historian Intelligence estimate: Average Judgment: Limited Insight: Partial Results - Vital Signs Vital signs: Temp Pulse Resp BP Pulse Ox 98.0 F 109 16 113/78 98 09/20/16 08:26 09/20/16 08:26 09/20/16 08:26 09/20/16 08:26 09/19/16 22:34 - Labs Labs: Laboratory Last Values WBC 4.5 K/mcL (4.3-11.1) 09/19/16 20: RBC 5.15 M/mcL (4.19-5.50) 09/19/16 20:26 Hgb 15.4 g/dL (12.9-16.9) 09/19/16 20: Hct 46.3 % (37.5-50.1) 09/19/16 20: MCV 89.9 fL (83.0-100.0) 09/19/16 20:26 MCH 29.9 pg (28.0-33.3) 09/19/16 20: MCHC 33.3 g/dL (31.6-35.5) 09/19/16 20:26 RDW 12.3 % (11.5-14.5) 09/19/16 20:26 Plt Count 167 K/mcL (140-400) 09/19/16 20: MPV 9.7 fL (9.4-12.4) 09/19/16 20:26 Immature Gran % 0.2 % (0-4) 09/19/16 20:26 Seg Neutrophils % 51.4 % 09/19/16 20:26 Lymphocytes % 27.8 % 09/19/16 20: Monocytes % 18.9 % 09/19/16 20: Eosinophils % 1.3 % 09/19/16 20: Basophils % 0.4 % 09/19/16 20: Neutrophils # 2.3 K/mcL (1.6-8.9) 09/19/16 20: Lymphocytes # 1.3 K/mcL (0.6-4.6) 09/19/16 20: Monocytes # 0.9 K/mcL (0.0-1.3) 09/19/16 20: Eosinophils # 0.1 K/mcL (0.0-0.6) 09/19/16 20: Basophils # 0.0 K/mcL (0.0-0.2) 09/19/16 20: Sodium 139 mEq/L (136-145) 09/19/16 20: Potassium 3.7 mEq/L (3.5-4.5) 09/19/16 20: Chloride 107 mEq/L (98-109) 09/19/16 20: Carbon Dioxide 23 mEq/L (19-29) 09/19/16 20: BUN 9 mg/dL (8-26) 09/19/16 20: Creatinine 0.97 mg/dL (0.72-1.25) 09/19/16 20: Est GFR ( Amer) > 60 (> 60) 09/19/16 20: Est GFR (Non-Af Amer) > 60 (> 60) 09/19/16 20: BUN/Creatinine Ratio 9 (6-26) 09/19/16 20: Glucose 95 mg/dL (70-99) 09/19/16 20: Calculated Osmolality 286 (280-300) 09/19/16 20: Calcium 8.9 mg/dL (8.6-10.8) 09/19/16 20: Urine Color Yellow (Yellow) 09/19/16 19: Urine Clarity Clear (Clear) 09/19/16: Urine pH 6.5 pH Units (5.0-8.0) 09/19/16 19: Ur Specific [place] 1.005 (1.010-1.025) L 09/19/16 19: Urine Protein Negative mg/dL (Neg-Trace) 09/19/16: Urine Glucose (UA) Normal mg/dL (Normal) 09/19/16 19:30 Urine Ketones Negative mg/dL (Negative) 09/19/16 19:30 Urine Blood Negative (Negative) 09/19/16 19:30 Urine Nitrite Negative (Negative) 09/19/16 19:30 Urine Bilirubin Negative (Negative) 09/19/16 19:30 Urine Urobilinogen Normal mg/dL (Normal) 09/19/16 19:30 Ur Leukocyte Esterase Negative (Negative) 09/19/16 19:30 Salicylates < 5.0 mg/dL (15-30) L 09/19/16 20:26 Urine Opiates Screen Negative ng/mL (Zuwqzg=347) 09/19/16 19:30 Acetaminophen < 1.0 mcg/mL (10-30) L 09/19/16 20:26 Ur Barbiturates Screen Negative ng/mL (Kkkjsx=406) 09/19/16 19:30 Ur Phencyclidine Scrn Negative ng/mL (Cutoff=25) 09/19/16 19:30 Ur Amphetamines Screen Negative ng/mL (Qqehyl=7752) 09/19/16 19:30 U Benzodiazepines Scrn Negative ng/mL (Taeyik=553) 09/19/16 19:30 Urine Cocaine Screen Negative ng/mL (Cutoff= 300) 09/19/16 19:30 U Marijuana (THC) Screen Negative ng/mL (Cutoff = 50) 09/19/16 19:30 Ethyl Alcohol < 10 mg/dL (0-10) 09/19/16 20:26 Assessment and Plan (1) Schizoaffective disorder, bipolar type Current visit: No Status: Acute Plan: Admit inpatient for safety and stabilization, Close observation, Suicide Precautions per unit protocol, Encourage participation in unit milieu, Group Therapy, Monitor sleep, Monitor appetite Additional Plan: Will check Depakote level and restart medication. Risks, benefits, side effects, alternatives discussed w/pt: Yes Patient agreeable to treatment: No Estimated Length of Stay (Days): 5
[2016-09-20] MEDS: Divalproex (12 HR) 500 MG TABLET PO SCH ×2 (11:30→20:43)
[2016-09-20 12:31] LABS: Valproate < 2.00 mcg/mL (50-100)
[2016-09-21] MEDS: Divalproex (12 HR) 500 MG TABLET PO SCH ×2 (08:48→21:28)
--- NOTE | 2016-09-21 14:25 | Psychiatry Progress Note ---
Date of Encounter: 09/21/16 Time of Encounter: 14:00 Subjective Interval history: Patient is seen for follow-up. Staff report he is pleasant and cooperative and compliant with medication and participating in groups and activities. There is concern about upcoming court hearing related to a past offense. He denies any commanding hallucination or suicidal ideation. He denies any side effects from the medication. He has limited understanding, of his treatment. Review of Systems Psychiatric: Reports: auditory hallucinations, confusion, difficulty concentrating, other (paranoid delusions) Objective: Exam Patient orientation: Yes Person, Yes Time, Yes Place Level of alertness: Alert Patient appearance: Appropriate, Well Groomed Behavior: calm, cooperative Psychomotor activity: Normal Eye contact: Intense Contact Mood description: Euthymic/stable Affect description: congruent with mood, euphoric, blunted Speech pattern: Normal rate, Normal rhythm, Clear, Repetitive, Impoverished Speech volume: Normal Thought process: Tangential, Flight of Ideas, [place] Thought content: Yes Overt delusions, Yes Ideas of reference, Yes Paranoid delusion, Yes Gnosticist delusion Perceptual disturbances: Yes Auditory hallucinations, No Visual hallucinations Judgment: Limited Insight: Partial Results - Vital Signs Vital Signs: Temp Pulse Resp BP Pulse Ox 97.4 F L 83 16 125/83 98 09/21/16 08:30 09/21/16 08:30 09/21/16 08:30 09/21/16 08:30 09/19/16 22:34 - Labs Labs: Laboratory Results - last 24 hr 09/21/16 09:45 Valproic Acid 44.59 L Assessment and Plan (1) Schizoaffective disorder, bipolar type Current visit: No Status: Acute Plan: Continue hospitalization, Close observation, Suicide Precautions per unit protocol, Encourage participation in unit milieu, Group Therapy, Monitor sleep, Monitor appetite Risks, benefits, side effects, alternatives discussed w/pt: Yes Patient agreeable to treatment: No Consult Discharge Plan - Plan Additional Instructions: [facility] will give your next Invega Sustenna injection on 09/25/2016. Referrals: [facility] [Outside] - 09/27/16 3:00 pm (The above appointment is with Leticia Peters, dependency case manager. You will also see Jana Ching, psychiatric prescriber, on )
[2016-09-22] MEDS: Divalproex (12 HR) 500 MG TABLET PO SCH ×2 (08:47→20:46)
--- NOTE | 2016-09-22 14:22 | Psychiatry Progress Note ---
Date of Encounter: 09/22/16 Time of Encounter: 14:19 Subjective Interval history: Patient is seen for follow-up. Staff reports he has been medication compliant and cooperative, attending groups. There are no reports of agitation and paranoia or disruptive behavior. He denies any auditory hallucinations and denied any suicidal ideation. His discharge planning is ongoing. He denies any side effects from medication. 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 Review of Systems Psychiatric: Reports: auditory hallucinations, confusion, difficulty concentrating, other (paranoid delusions) Objective: Exam Patient orientation: Yes Person, Yes Time, Yes Place Level of alertness: Alert Patient appearance: Appropriate, Well Groomed Behavior: calm, cooperative Psychomotor activity: Normal Eye contact: Intense Contact Mood description: Euthymic/stable Affect description: congruent with mood, euphoric, blunted Speech pattern: Normal rate, Normal rhythm, Clear, Repetitive, Impoverished Speech volume: Normal Thought process: Tangential, Flight of Ideas, [place] Thought content: Yes Overt delusions, Yes Ideas of reference, Yes Paranoid delusion, Yes Caodaism delusion Perceptual disturbances: No Auditory hallucinations, No Visual hallucinations Judgment: Limited Insight: Partial Results - Vital Signs Vital Signs: Temp Pulse Resp BP Pulse Ox 98.2 F 84 16 110/77 98 09/22/16 08:46 09/22/16 08:46 09/22/16 08:46 09/22/16 08:46 09/19/16 22:34 Assessment and Plan (1) Schizoaffective disorder, bipolar type Current visit: No Status: Acute Plan: Continue hospitalization, Close observation, Suicide Precautions per unit protocol, Encourage participation in unit milieu, Group Therapy, Monitor sleep, Monitor appetite Risks, benefits, side effects, alternatives discussed w/pt: Yes Patient agreeable to treatment: No Consult Discharge Plan - Plan Additional Instructions: [facility] will give your next Invega Sustenna injection on 09/25/2016. Referrals: [facility] [Outside] - 09/27/16 3:00 pm (The above appointment is with Leticia Peters, bilingual case manager. You will also see Jana Ching, psychiatric prescriber, on 10/31/2016 at 9:30am. this is Jana's first open appointment. Staff will try to get you in sooner if a cancellation occurs in Jana's schedule.)
[2016-09-23] MEDS: Divalproex (12 HR) 500 MG TABLET PO SCH ×2 (09:40→21:34)
--- NOTE | 2016-09-23 12:17 | Psychiatry Progress Note ---
Date of Encounter: 09/23/16 Time of Encounter: 11:50 Subjective Interval history: Emanuel is seen today for follow-up. Previous nursing notes and M.D. notes reviewed today. He reports that he feels the meds are working. He does not appear to be responding to internal stimuli. He reports good sleep. He denies obsessions, delusions, paranoia. His affect is slightly restricted but he is able to smile and make a joke during the interview. He would like to go home because he does not think he needs to be here any longer. Staff does report that he is close to baseline. He does not seem to have good insight on why he needs to continue to take his meds. Review of Systems Psychiatric: Reports: confusion. Denies: auditory hallucinations Objective: Exam Patient orientation: Yes Person, Yes Time, Yes Place Level of alertness: Alert Patient appearance: Appropriate, Well Groomed Behavior: calm, cooperative Psychomotor activity: Normal Eye contact: Intense Contact Mood description: Euthymic/stable Affect description: congruent with mood, constricted Speech pattern: Normal rate, Normal rhythm, Repetitive, Impoverished Speech volume: Normal Thought process: [place] Thought content: Yes Intact Perceptual disturbances: No Auditory hallucinations, No Visual hallucinations Judgment: Limited Insight: Minimal Results - Vital Signs Vital Signs: Temp Pulse Resp BP Pulse Ox 97.8 F 105 16 112/68 98 09/23/16 09:00 09/23/16 09:00 09/23/16 09:00 09/23/16 09:00 09/19/16 22:34 Assessment and Plan (1) Schizoaffective disorder, bipolar type Current visit: No Status: Acute Plan: Continue hospitalization, Close observation, Suicide Precautions per unit protocol, Encourage participation in unit milieu, Group Therapy, Monitor sleep, Monitor appetite Additional Plan: Patient appears to be responding well to hospitalization and current medications. He has a long-standing history of noncompliance and multiple psychiatric admissions. We will continue to monitor through the weekend and make sure that all appropriate discharge planning is set up prior to discharge. Continue to monitor for side effects of medications as well. Will work on educating the patient on the importance of taking meds. Risks, benefits, side effects, alternatives discussed w/pt: Yes Patient agreeable to treatment: No Consult Discharge Plan - Plan Additional Instructions: [facility] will give your next Invega Sustenna injection on 09/25/2016. [facility] will continue to deliver oral medications to your home on a daily basis. [facility] 3:00 pm (The above appointment is with Leticia Peters, showcase trimmer. You will also see Jana Ching, psychiatric prescriber, on 10/31/2016 at 9:30am. this is Jana's first open appointment. Staff will try to get you in sooner if a cancellation occurs in Jana's schedule.)
[2016-09-24] MEDS: Divalproex (12 HR) 500 MG TABLET PO SCH ×2 (09:53→20:55)
--- NOTE | 2016-09-24 13:56 | Psychiatry Progress Note ---
Date of Encounter: 09/24/16 Time of Encounter: 13:00 Subjective Interval history: Roger is seen today for follow-up. He is cooperative with staff although his speech remained somewhat impoverished. He denies side effects and he thinks that the sedation was a problem before he restarted meds. He reports sleeping well. No agitation or prn meds required. Patient is interacting in milieu with other patients and staff. Review of Systems Psychiatric: Reports: confusion. Denies: auditory hallucinations Objective: Exam Patient orientation: Yes Person, Yes Time, Yes Place Level of alertness: Alert Patient appearance: Appropriate, Well Groomed Behavior: calm, cooperative Psychomotor activity: Normal Eye contact: Intense Contact Mood description: Euthymic/stable Affect description: congruent with mood, constricted Speech pattern: Normal rate, Normal rhythm, Impoverished Speech volume: Normal Thought process: [place] Thought content: Yes Intact, No Suicidal ideation, No Homicidal ideation Perceptual disturbances: No Auditory hallucinations, No Visual hallucinations Judgment: Limited Insight: Minimal Results - Vital Signs Vital Signs: Temp Pulse Resp BP Pulse Ox 97.8 F 107 16 128/73 98 09/24/16 10:15 09/24/16 10:15 09/24/16 10:15 09/23/16 21:00 09/19/16 22:34 Assessment and Plan (1) Schizoaffective disorder, bipolar type Current visit: No Status: Acute Plan: Continue hospitalization, Close observation, Suicide Precautions per unit protocol, Encourage participation in unit milieu, Group Therapy, Monitor sleep, Monitor appetite Additional Plan: Patient appears to be tolerating meds well. We will continue with hospitalization and plan on discharge early next week. Patient has multiple hospitalizations for medication noncompliance and we reviewed today why he will need to continue to take his meds. Risks, benefits, side effects, alternatives discussed w/pt: Yes Patient agreeable to treatment: No Consult Discharge Plan - Plan Additional Instructions: [facility] will give your next Invega Sustenna injection on 09/25/2016. [facility] will continue to deliver oral medications to your home on a daily basis. [facility] - 09/27/16 3:00 pm (The above appointment is with Leticia Peters, immigration case worker. You will also see Jana Ching, psychiatric prescriber, on 10/31/2016 at 9:30am. this is Jana's first open appointment. Staff will try to get you in sooner if a cancellation occurs in Jana's schedule.)
[2016-09-25] MEDS: Divalproex (12 HR) 500 MG TABLET PO SCH (08:42)
[2016-09-25 08:56] VITALS: BP 136/87
[2016-09-25] MEDS ORDERED: (Paliperidone Palmitate [Invega Sustenna] 156 MG) IM SCH (10:30)
--- NOTE | 2016-09-25 11:20 | Discharge Summary ---
Date of Encounter: 09/25/16 Time of Encounter: 11:14 Diagnosis - Discharge Diagnosis (1) Schizoaffective disorder, bipolar type Priority: Primary Status: Acute Medications - Discharge Medications Prescriptions: Divalproex (12 HR) [Depakote (12 HR)] 500 mg PO BID #60 tablet. Fluphenazine [Prolixin] 5 mg PO HS #60 tablet Paliperidone [Invega] 3 mg PO DAILY #30 tab.er.[id number] Paliperidone Palmitate [Invega Sustenna] 156 mg IM Q2W #1 syringe Benztropine [Cogentin] 1 mg PO Q4H PRN #30 tablet 08/23/16 [Rx] Divalproex (12 HR) [Depakote (12 HR)] 500 mg PO BID #60 tablet. 09/25/16 [Rx] Fluphenazine [Prolixin] 5 mg PO HS #60 tablet 09/25/16 [Rx] Paliperidone Palmitate [Invega Sustenna] 156 mg IM Q2W #1 syringe 09/25/16 [Rx] Paliperidone [Invega] 3 mg PO DAILY #30 tab.er.24 09/25/16 [Rx] Allergies No Known Drug Allergies Allergy (Verified 08/12/16 11:05) See Comments not confirmed with patient, he will not answer Results Procedures and tests throughout hospitalization: Completed Lab Orders Category Date Time Status Valproate Routine Lab 09/21/16 09:45 Completed Provider Date of admission: 09/19/16 22:50 Primary care physician: PCP NO Consults: 09/19/16 23:24 Consult to Pastoral Services [CONS] Routine Comment: Per patient request Discharging clinician: Farhad Swanson Assessment and Plan - Patient/Caregiver Discharge Instructions Activity: resume usual activities as tolerated Diet: regular diet Additional Instructions: [facility] will give your next Invega Sustenna injection on 09/25/2016. [facility] will continue to deliver oral medications to your home on a daily basis. - Follow up Plan Follow up with: [facility] [Outside] - 09/27/16 3:00 pm (The above appointment is with Leticia Peters, child support case officer. You will also see Jana Ching, psychiatric prescriber, on 10/31/2016 at 9:30am. this is Jana's first open appointment. Staff will try to get you in sooner if a cancellation occurs in Jana's schedule.) Functional capacity at discharge: independent ambulation Overall status at discharge: Stable Disposition: Home, Self-Care Hospital Course Hospital course: Mr. Loving is a 21 year old male admitted for exacerbation of schizoaffective disorder bipolar and noncompliance with medication. For details of admission please see H&P On the units patient was restarted on medication, his Depakote level was checked and was therapeutic. He participated in activities and groups. He denied any suicidal ideation or auditory hallucination. He was not showing paranoid delusions and his insight improved. Prior to discharge she was medically stable his discharge plan was completed by the social services technician and he was agreeable to with the plan. - Time Spent with Patient Total time spent providing and/or coordinating discharge services: Less than 30 minutes Quality - Multiple Antipsychotics Patient discharged on 2 or more antipsychotic medications: Yes - Justification Documentation of: History 3 failed trials of monotherapy Procedures - Procedures Procedures: Medication Management, Crisis Stabilization, Supportive Therapy, Group Therapy, Psychoeducational Therapy Mental Status Exam - Mental Status Exam Patient orientation: Yes Person, Yes Time, Yes Place Level of alertness: Alert Patient appearance: Appropriate, Well Groomed Behavior: calm, cooperative Psychomotor activity: Normal Eye contact: Intense Contact Mood description: Euthymic/stable Affect description: congruent with mood, constricted Speech pattern: Normal rate, Normal rhythm, Impoverished Speech Volume: Normal Thought process: [place] Thought Content: Yes Intact, No Suicidal ideation, No Homicidal ideation Perceptual Disturbances: No Auditory hallucinations, No Visual hallucinations Judgment: Limited Insight: Minimal
== END 2016-09-25 12:25 | disposition home or self-care (01) | DRG 750 ==
LOC: EMEROO 18:32 → 1ANU 22:50
PROVIDERS: ADMIT Psychiatry & Neurology Psychiatry; ATTEND Psychiatry & Neurology Psychiatry

== ENCOUNTER 2019-01-26 16:11 | Observation (INO) ==
--- NOTE | 2019-01-26 16:14 | Emergency Department Note ---
Disposition Clinical Impression: Rachell, Hallucination, Hyperammonemia Anticholinergic syndrome Qualifiers: Encounter type: initial encounter Injury intent: undetermined intent Qualified Code(s): T44.3X4A - Poisoning by other parasympatholytics [anticholinergics and antimuscarinics] and spasmolytics, undetermined, initial encounter Disposition: Admitted As Inpatient Condition: Good Time of Disposition: 21:00 Psych HPI - General Stated Complaint: SI Time Seen by Provider: 01/26/19 16:12 Nursing Notes Reviewed: Yes Vital Signs Reviewed: Yes - History of Present Illness HPI Narrative: 23-year-old male presents emergency department with concern for a more aggressive. Patient is taking Cogentin as well as valproic acid. Reports that he takes medications as he is supposed to. He denies taking any other illicit substances. Patient states he is very very thirsty. He denies any chest pain, pressure, tightness. - Related Data Home Medications Medication Instructions Recorded Confirmed Benztropine [Cogentin] 1 mg PO BID 09/12/17 01/26/19 Paliperidone Palmitate [Invega 156 mg IM QMONTH 09/12/17 01/26/19 Sustenna] Previous Rx's Medication Instructions Recorded Divalproex (12 HR) [Depakote (12 500 mg PO BID #60 tablet.dr 09/25/16 HR)] Allergies Allergy/AdvReac Type Severity Reaction Status Date / Time No Known Allergies Allergy Verified 09/12/17 11:26 All systems ED: reviewed and negative except as stated. Review of Systems: As Per HPI Constitutional: Reports: fever Cardiovascular: Reports: palpitations. Denies: chest pain Respiratory: Denies: cough, dyspnea Gastrointestinal: Denies: abdominal pain, nausea, vomiting Genitourinary: Denies: urgency, dysuria, frequency Neurological: Denies: headache Past Medical History - Past Medical History Attestation: Yes The following information was validated with the patient. Medical history: Reports: asthma, other Surgical history: Reports: no surgical history Psychiatric history: Reports: bipolar, schizophrenia, previous psychiatric hospitalization - Social History Smoking Status: Never smoker Smokeless Tobacco Status: No Alcohol use: Reports: none Drug use: Reports: none Physical Exam - General Limitations: no limitations General appearance: alert, anxious - Head Head exam: normocephalic - Eye Eye exam: Present: EOMI - ENT ENT exam: mucous membranes dry - Neck Neck exam: Present: trachea midline - Chest Chest inspection: Present: symmetric chest wall rise - Respiratory Respiratory exam: Present: normal lung sounds bilaterally. Absent: respiratory distress, accessory muscle use - Cardiovascular Cardiovascular exam: Present: normal rhythm, tachycardia, normal heart sounds - Abdominal Exam Abdominal exam: Present: soft, Non-Tender. Absent: distention, guarding, rebound, rigidity Course Vital Signs Temperature 100.1 F H 01/26/19 16:11 Pulse Rate 148 01/26/19 16:11 Respiratory Rate 22 01/26/19 16:11 Blood Pressure 144/84 01/26/19 16:11 O2 Sat by Pulse Oximetry 94 01/26/19 16:11 Temperature 98.6 F 01/27/19 00:03 Pulse Rate 108 01/27/19 00:03 Respiratory Rate 14 01/27/19 00:03 Blood Pressure 136/79 01/27/19 00:03 O2 Sat by Pulse Oximetry 96 01/27/19 00:03 Oxygen Delivery Oxygen Delivery Room Air Psych - MDM Narrative Medical decision making narrative: 23-year-old male presents emergency department with concern for possible anti- cholinergic toxicity versus valproic toxicity. Patient was given fluids initially. He was also given Ativan. Patient had a heart rate that responded well as it decreased after fluid administration. Patient also seemed to calm down as well. He was pink slipped as was concern that he may be manic with his anticholinergic toxicity also contributing to the rachell. Spoke with poison control who recommended treating for blood valproic toxicity as he had an elevated ammonia. We started levocarnitine. Patient admitted to the hospital hemodynamically stable not in acute distress with tachycardia, but significantly improved from initial presentation. Chest X-Ray 01/26/19 16:37 IMPRESSION: Normal portable chest examination. D/ / Delonte Swift MD / Delonte Swift MD Interpreting Provider: Delonte Swift MD - Lab Data Lab results reviewed: Yes I reviewed the patient's lab results. Result diagrams: 01/26/19 16:45 01/26/19 16:45 Lab Results 01/26/19 01/26/19 01/26/19 Range/Units 16:40 16:40 16:45 WBC 7.7 (4.3-11.1) K/mcL RBC 4.97 (4.19-5.50) M/mcL Hgb 15.0 (12.9-16.9) g/dL Hct 43.3 (37.5-50.1) % MCV 87.1 (83.0-100.0) fL MCH 30.2 (28.0-33.3) pg MCHC 34.6 (31.6-35.5) g/dL RDW 11.9 (11.5-14.5) % Plt Count 188 (140-400) K/mcL MPV 9.6 (9.4-12.4) fL Immature Gran % 0.5 (0-4) % Seg Neutrophils % 78.4 % Lymphocytes % 13.4 % Monocytes % 7.3 % Eosinophils % 0.1 % Basophils % 0.3 % Neutrophils # 6.0 (1.6-8.9) K/mcL Lymphocytes # 1.0 (0.6-4.6) K/mcL Monocytes # 0.6 (0.0-1.3) K/mcL Eosinophils # 0.0 (0.0-0.6) K/mcL Basophils # 0.0 (0.0-0.2) K/mcL Sodium (136-145) mEq/L Potassium (3.5-5.1) mEq/L Chloride (98-107) mEq/L Carbon Dioxide (23-29) mEq/L BUN (6-20) mg/dL Creatinine (0.70-1.30) mg/dL Est GFR ( Amer) (> 60) Est GFR (Non-Af Amer) (> 60) BUN/Creatinine Ratio (6-26) Glucose (70-105) mg/dL Calculated Osmolality (280-300) Lactic Acid (0.5-2.2) mmol/L Calcium (8.6-10.3) mg/dL Total Bilirubin (0.3-1.0) mg/dL Direct Bilirubin (0.0-0.2) mg/dL Indirect Bilirubin (0.0-1.2) mg/dL AST (13-39) Units/L ALT (7-52) Units/L Alkaline Phosphatase (34-104) Units/L Ammonia (16-53) mcmol/L Creatine Kinase (30-223) Units/L Troponin I (< 0.04) ng/mL Serum Total Protein (6.4-8.9) g/dL Albumin (3.5-5.7) g/dL Globulin (2.4-3.5) g/dL Albumin/Globulin Ratio (1.1-2.2) Urine Color Yellow (Yellow) Urine Clarity Clear (Clear) Urine pH 6.0 (5.0-8.0) pH Units Ur Specific [place] 1.011 (1.010-1.025) Urine Protein 30 H (Neg-Trace) mg/dL Urine Glucose (UA) Normal (Normal) mg/dL Urine Ketones 15 H (Negative) mg/dL Urine Blood Negative (Negative) Urine Nitrite Negative (Negative) Urine Bilirubin Negative (Negative) Urine Urobilinogen Normal (Normal) mg/dL Ur Leukocyte Esterase Negative (Negative) Urine Microscopic RBC 3-5 H (0-3) per hpf Urine Microscopic WBC 0-3 (0-3) per hpf Ur Squamous Epith Cells Many H (None-Few) per lpf Urine Bacteria None Seen (None-Few) per hpf Hyaline Casts Few (None-Few) per lpf Salicylates (15.0-30.0) mg/dL Urine Opiates Screen Negative (Xkvnny=297) ng/mL Ur Buprenorphine Scrn Negative (Cutoff=5) ng/mL Acetaminophen (10-20) mcg/mL Ur Barbiturates Screen Negative (Zqmqhd=755) ng/mL Valproic Acid (50-100) mcg/mL Ur Phencyclidine Scrn Negative (Cutoff=25) ng/mL Ur Amphetamines Screen Negative (Hpzvjg=7880) ng/mL U Benzodiazepines Scrn Negative (Sgbzfz=279) ng/mL Urine Cocaine Screen Negative (Cutoff= 300) ng/mL U Marijuana (THC) Screen Negative (Cutoff = 50) ng/mL Ur Drug Screen Interp See Below Ethyl Alcohol (Less than 10) mg/dL 01/26/19 01/26/19 01/26/19 Range/Units 16:45 16:45 17:04 WBC (4.3-11.1) K/mcL RBC (4.19-5.50) M/mcL Hgb (12.9-16.9) g/dL Hct (37.5-50.1) % MCV (83.0-100.0) fL MCH (28.0-33.3) pg MCHC (31.6-35.5) g/dL RDW (11.5-14.5) % Plt Count (140-400) K/mcL MPV (9.4-12.4) fL Immature Gran % (0-4) % Seg Neutrophils % % Lymphocytes % % Monocytes % % Eosinophils % % Basophils % % Neutrophils # (1.6-8.9) K/mcL Lymphocytes # (0.6-4.6) K/mcL Monocytes # (0.0-1.3) K/mcL Eosinophils # (0.0-0.6) K/mcL Basophils # (0.0-0.2) K/mcL Sodium 137 (136-145) mEq/L Potassium 3.7 (3.5-5.1) mEq/L Chloride 101 (98-107) mEq/L Carbon Dioxide 20 L (23-29) mEq/L BUN 10 (6-20) mg/dL Creatinine 1.15 (0.70-1.30) mg/dL Est GFR ( Amer) > 60 (> 60) Est GFR (Non-Af Amer) > 60 (> 60) BUN/Creatinine Ratio 9 (6-26) Glucose 138 H (70-105) mg/dL Calculated Osmolality 285 (280-300) Lactic Acid 2.6 H (0.5-2.2) mmol/L Calcium 9.8 (8.6-10.3) mg/dL Total Bilirubin 0.5 (0.3-1.0) mg/dL Direct Bilirubin 0.1 (0.0-0.2) mg/dL Indirect Bilirubin 0.4 (0.0-1.2) mg/dL AST 21 (13-39) Units/L ALT 21 (7-52) Units/L Alkaline Phosphatase 41 (34-104) Units/L Ammonia 63 H (16-53) mcmol/L Creatine Kinase 155 (30-223) Units/L Troponin I < 0.03 (< 0.04) ng/mL Serum Total Protein 7.2 (6.4-8.9) g/dL Albumin 4.6 (3.5-5.7) g/dL Globulin 2.6 (2.4-3.5) g/dL Albumin/Globulin Ratio 1.8 (1.1-2.2) Urine Color (Yellow) Urine Clarity (Clear) Urine pH (5.0-8.0) pH Units Ur Specific [place] (1.010-1.025) Urine Protein (Neg-Trace) mg/dL Urine Glucose (UA) (Normal) mg/dL Urine Ketones (Negative) mg/dL Urine Blood (Negative) Urine Nitrite (Negative) Urine Bilirubin (Negative) Urine Urobilinogen (Normal) mg/dL Ur Leukocyte Esterase (Negative) Urine Microscopic RBC (0-3) per hpf Urine Microscopic WBC (0-3) per hpf Ur Squamous Epith Cells (None-Few) per lpf Urine Bacteria (None-Few) per hpf Hyaline Casts (None-Few) per lpf Salicylates < 2.5 L (15.0-30.0) mg/dL Urine Opiates Screen (Avixkd=524) ng/mL Ur Buprenorphine Scrn (Cutoff=5) ng/mL Acetaminophen < 10 L (10-20) mcg/mL Ur Barbiturates Screen (Lvobhp=166) ng/mL Valproic Acid 72 (50-100) mcg/mL Ur Phencyclidine Scrn (Cutoff=25) ng/mL Ur Amphetamines Screen (Udqqxp=6200) ng/mL U Benzodiazepines Scrn (Jrbfcg=063) ng/mL Urine Cocaine Screen (Cutoff= 300) ng/mL U Marijuana (THC) Screen (Cutoff = 50) ng/mL Ur Drug Screen Interp Ethyl Alcohol < 10 (Less than 10) mg/dL - EKG Data EKG attestation: Yes I reviewed and interpreted this EKG. EKG results narrative: 16:23 Heart rate 150 bpm, VA interval 142 ms, QRS duration 81 ms, QT 259 ms, normal axis. Sinus tachycardia with no ischemic ST changes. Psychiatric Medical Clearance - Medical Clearance Checklist Medical History: No Social History Section defined Current Vitals: Last Vital Signs Temp 98.6 F 01/27/19 00:03 Pulse 108 01/27/19 00:03 Resp 14 01/27/19 00:03 BP 136/79 01/27/19 00:03 Pulse Ox 96 01/27/19 00:03 Psychiatric Lab Panel: Drug Levels and Toxicity 01/26/19 01/26/19 16:40 16:45 Urine Opiates Screen Negative Acetaminophen < 10 L Ur Barbiturates Screen Negative Ur Phencyclidine Scrn Negative Ur Amphetamines Screen Negative U Benzodiazepines Scrn Negative Urine Cocaine Screen Negative U Marijuana (THC) Screen Negative Ethyl Alcohol < 10 Abnormal Labs: Abnormal lab results Carbon Dioxide 20 mEq/L (23-29) L 01/26/19 16:45 Glucose 138 mg/dL (70-105) H 01/26/19 16:45 Lactic Acid 2.6 mmol/L (0.5-2.2) H 01/26/19 17:04 Ammonia 63 mcmol/L (16-53) H 01/26/19 16:45 Urine Protein 30 mg/dL (Neg-Trace) H 01/26/19 16:40 Urine Ketones 15 mg/dL (Negative) H 01/26/19 16:40 Urine Microscopic RBC 3-5 per hpf (0-3) H 01/26/19 16:40 Ur Squamous Epith Cells Many per lpf (None-Few) H 01/26/19 16:40 Salicylates < 2.5 mg/dL (15.0-30.0) L 01/26/19 16:45 Acetaminophen < 10 mcg/mL (10-20) L 01/26/19 16:45 Statement of Medical Clearance: I have evaluated the patient, reviewed diagnostic information, and certify that the patient's medical condition is sufficiently stable that transfer to the psychiatric unit does not pose a significant risk of deterioration.
[2019-01-26] MEDS ORDERED: Haloperidol Lactate 5 MG/ML VIAL IVP ONE (16:30)
[2019-01-26] MEDS ORDERED: *HR* LORazepam 2 MG/ML VIAL IVP ONE (16:30)
[2019-01-26] MEDS ORDERED: 0.9 % Sodium Chloride 1,000 ML IVC ONE (16:30)
[2019-01-26 17:02] LABS: Bilirubin,Urine Negative (Negative); Blood,Urine Negative (Negative); Clarity,Urine Clear (Clear); Color,Urine Yellow (Yellow); Glucose,Urine (UA) Normal (Normal); Ketones,Urine 15 mg/dL (Negative); Leukocyte Esterase,Urine Negative (Negative); Nitrite,Urine Negative (Negative); Protein,Urine 30 mg/dL (Neg-Trace); Specific Gravity,Urine 1.011 (1.010-1.025); Urobilinogen,Urine Normal (Normal)
[2019-01-26 17:03] LABS: Bacteria,Urine None Seen per hpf (None-Few); Squamous Epithelial Cell,Urine Many per lpf (None-Few); WBC,Urine 0-3 per hpf (0-3)
[2019-01-26 17:06] LABS: Basophils % 0.3 %; Eosinophils % 0.1 %; Hematocrit 43.3 % (37.5-50.1); Immature Granulocytes % 0.5 % (0-4); Lymphocytes % 13.4 %; Mean Corpuscular HGB Conc 34.6 g/dL (31.6-35.5); Mean Corpuscular Hemoglobin 30.2 pg (28.0-33.3); Mean Corpuscular Volume 87.1 fL (83.0-100.0); Mean Platelet Volume 9.6 fL (9.4-12.4); Monocytes # 0.6 K/mcL (0.0-1.3); Monocytes % 7.3 %; Platelet Count 188 K/mcL (140-400); Red Blood Count 4.97 M/mcL (4.19-5.50); Red Cell Distribution Width 11.9 % (11.5-14.5); Segmented Neutrophils % 78.4 %; White Blood Count 7.7 K/mcL (4.3-11.1)
[2019-01-26 17:12] LABS: Amphetamine Screen,Urine Negative ng/mL (Cutoff=1000); Barbiturate Screen,Urine Negative ng/mL (Cutoff=200); Benzodiazepines Screen,Urine Negative ng/mL (Cutoff=200); Cannabinoid Screen,Urine Negative ng/mL (Cutoff = 50); Cocaine Screen,Urine Negative ng/mL (Cutoff= 300); Opiate Screen,Urine Negative ng/mL (Cutoff=300); Phencyclidine Screen,Urine Negative ng/mL (Cutoff=25)
[2019-01-26 17:13] LABS: Hyaline Casts,Urine Few per lpf (None-Few)
[2019-01-26 17:22] LABS: Acetaminophen < 10 mcg/mL (10-20); Alanine Aminotransferase 21 Units/L (7-52); Albumin 4.6 g/dL (3.5-5.7); Albumin/Globulin Ratio 1.8 (1.1-2.2); Alkaline Phosphatase 41 Units/L (34-104); Aspartate Amino Transferase 21 Units/L (13-39); BUN/Creatinine Ratio 9 (6-26); Bilirubin,Direct 0.1 mg/dL (0.0-0.2); Bilirubin,Indirect 0.4 mg/dL (0.0-1.2); Bilirubin,Total 0.5 mg/dL (0.3-1.0); Blood Urea Nitrogen 10 mg/dL (6-20); Calcium 9.8 mg/dL (8.6-10.3); Carbon Dioxide 20 mEq/L (23-29); Chloride 101 mEq/L (98-107); Creatine Kinase 155 Units/L (30-223); Ethanol < 10 mg/dL (Less than 10); Globulin 2.6 g/dL (2.4-3.5); Glucose 138 mg/dL (70-105); Osmolality,Calculated 285 (280-300); Potassium 3.7 mEq/L (3.5-5.1); Salicylate < 2.5 mg/dL (15.0-30.0); Sodium 137 mEq/L (136-145); Total Protein 7.2 g/dL (6.4-8.9); Troponin I < 0.03 ng/mL (< 0.04); Valproate 72 mcg/mL (50-100); eGFR For African Americans > 60 (> 60); eGFR For Non-African Americans > 60 (> 60)
[2019-01-26] MEDS ORDERED: Naloxone 0.4 MG/ML INJ IVP PRN (17:54)
[2019-01-26] MEDS ORDERED: *HR* LORazepam 2 MG/ML VIAL IVP PRN (17:56)
[2019-01-26] MEDS ORDERED: LEVOCARNITINE IV ONE (18:00)
[2019-01-26] MEDS ORDERED: SODIUM CHLORIDE 0.9% IV ONE (18:00)
--- NOTE | 2019-01-26 18:08 | Internal Med History&Physical ---
Date of Encounter: 01/26/19 Time of Encounter: 17:30 Internal Medicine - H&P: HPI Chief complaint: Drug overdose Admitted From: Emergency Dept Plans for Post Hospital Care: Home History of present illness: Mr. Loving is a 23 year old male with past psychiatric history currently on Depakote and benztropine, presented to the hospital because of the concerns of being more aggressive. Patient is currently taking both of his medications regularly. Patient denies any other illicit drug use. He told me that he has been taking his medications as prescribed, did not overdose on the medications. He has been feeling more warm and thirsty. Denies any suicidal ideation. Denies any chest pain, shortness of breath, chest tightness, fever, chills, rigors. In the emergency department patient was hemodynamically stable other than being tachycardic with heart rate 150s and 160s. Reporting workup was normal other than lactic acid of 3.0 and ammonia 63. Urine drug screen was normal. Patient was admitted to the medical floor because of the concern of drug overdose namely Cogentin and valproic acid Past Med Surg Social Fam HX - Past Medical History Medical history: other Additional medical history: Bipolar. Schizophrinia Psychiatric history: bipolar, schizophrenia, previous psychiatric hospitalizat ion - Past Surgical History Surgical History: no surgical history Additional surgical history: "got stitches when I was 6" - Social History Smoking Status: Never smoker Smokeless Tobacco Status: No Alcohol use: none Drug use: none - Additional Family History Additional family history: Deneis any family hx of psychiatric illlness Internal Medicine - H&P: Meds Divalproex (12 HR) [Depakote (12 HR)] 500 mg PO BID #60 tablet. 09/25/16 [Rx] Acetaminophen [Tylenol] 650 mg PO Q6H PRN tablet 09/12/17 [Rx] Benztropine [Cogentin] 1 mg PO BID 09/12/17 [History] OxyCODONE/APAP 5/325 [Percocet 5/325 MG] 1 each PO Q6H PRN 2 Days #8 tablet 09/12/17 [Rx] Paliperidone Palmitate [Invega Sustenna] 156 mg IM QMONTH 09/12/17 [History] Allergy/AdvReac Type Severity Reaction Status Date / Time No Known Allergies Allergy Verified 09/12/17 11:26 All Systems PM: A 10-system review of systems was performed and is negative for pertinent findings except as documented above in the HPI. - Constitutional Vitals: Temp Pulse Resp BP Pulse Ox 100.1 F H 148 22 144/84 94 01/26/19 16:11 01/26/19 16:11 01/26/19 16:11 01/26/19 16:11 01/26/19 16:11 Exam: General: Alert and oriented, hyper and jittery, no physical distress, able to follow commands. HEENT: No thyromegaly, no lymphadenopathy, no discharge. Eyes: No discharge. Respiratory: Normal vesicular breathing, no added sounds, breathing equal in both sides. CVS: Normal heart sounds, no murmurs, no edema. Tachycardaic with the HR in 130s Extremities: No peripheral edema, peripheral pulses intact. Lymph nodes: No lymphadenopathy Gastrointestinal: Soft, nontender abdomen, normal abdominal sounds. No distention noted. Genitourinary: No paravertebral tenderness. Neurological: Alert and oriented. No focal deficits. Cranial nerves II-XII intact. PSychiatric:Normal, no suicidla ideation, hyper and jittery but pleasant Internal Med - H&P Results - Labs CBC & Chem 7: 01/26/19 16:45 01/26/19 16:45 Labs: Short CBC 01/26/19 Range/Units 16:45 WBC 7.7 (4.3-11.1) K/mcL Hgb 15.0 (12.9-16.9) g/dL Hct 43.3 (37.5-50.1) % Plt Count 188 (140-400) K/mcL Neutrophils # 6.0 (1.6-8.9) K/mcL BMP 01/26/19 16:45 Sodium 137 Potassium 3.7 Chloride 101 Carbon Dioxide 20 L BUN 10 Creatinine 1.15 Glucose 138 H Calcium 9.8 Cardiac Enzymes 01/26/19 Range/Units 16:45 Troponin I < 0.03 (< 0.04) ng/mL Liver Function 01/26/19 Range/Units 16:45 Total Bilirubin 0.5 (0.3-1.0) mg/dL Direct Bilirubin 0.1 (0.0-0.2) mg/dL AST 21 (13-39) Units/L ALT 21 (7-52) Units/L Alkaline Phosphatase 41 (34-104) Units/L Albumin 4.6 (3.5-5.7) g/dL Urine 01/26/19 Range/Units 16:40 Urine Color Yellow (Yellow) Urine Clarity Clear (Clear) Urine pH 6.0 (5.0-8.0) pH Units Ur Specific [place] 1.011 (1.010-1.025) Urine Protein 30 H (Neg-Trace) mg/dL Urine Glucose (UA) Normal (Normal) mg/dL - Impressions ITS Impressions Chest X-Ray 01/26/19 16:37 IMPRESSION: Normal portable chest examination. D/ / Delonte Swift MD / Delonte Swift MD Interpreting Provider: Delonte Swift MD - Assessment and Plan (1) Hyperammonemia Current Visit: Yes Status: Acute Assessment and plan: -Ammonai of 63 -Likely secondary to valproate Hold valproic acid -Discussed with the pomaicolin control who recomemnded L-carnitine, ammonia leves Q6H and valproidc acid Q6H- -L-carnitine has been ordered in the ED -Wull follow up on lactic acid adn ammonia levels q6h (2) Anticholinergic syndrome Current Visit: Yes Status: Acute Assessment and plan: -Likely accidental -Patient denies suicidal ideation. Currently patient is hyperactive, has a heart rate of 130s to 140s. -EKG with normal QRS and QTc -Mildt feverish with the temp of 100 -Will give supportive managemnt with IV fludis -Benzodiazepines for agitation, IV lorazepam 1mg IVP Q4H\\ -residential monitor Qualifiers: Encounter type: initial encounter Injury intent: undetermined intent Qualified Code(s): T44.3X4A - Poisoning by other parasympatholytics [anticholinergics and antimuscarinics] and spasmolytics, undetermined, initial encounter (3) Lactic acidosis Current Visit: Yes Status: Acute Assessment and plan: -Likley secodary to dehydration and elevated HR -Repat lactic acid levels (4) History of schizophrenia Current Visit: No Status: Acute Assessment and plan: -Will defer management to psych once the pt is stable (5) Benztropine adverse reaction Current Visit: Yes Status: Acute Assessment and plan: -Likely anticholinergic syndrome -No signs of neuroleptic malignant syndrome -Mangemtn exaplined above - Time Spent With Patient Total time spent is greater than 50% in coordination of care (as documented) at patient's floor/unit and/or counseling patient:
--- NOTE | 2019-01-26 18:20 | Emergency Department Note ---
Disposition Clinical Impression: Rachell, Hallucination Anticholinergic syndrome Qualifiers: Encounter type: initial encounter Injury intent: undetermined intent Qualified Code(s): T44.3X4A - Poisoning by other parasympatholytics [anticholinergics and antimuscarinics] and spasmolytics, undetermined, initial encounter Disposition: Admitted As Inpatient Condition: Good Referrals: NONE,PCP [Primary Care Provider] - Time of Disposition: 18:21 General Adult HPI - General Chief complaint: ED Psychiatric Symptoms Stated complaint: SI Time Seen by Provider: 01/26/19 16:12 Source: patient, family, EMS Limitations: no limitations - History of Present Illness Pain Scale: 0 - Related Data Home Medications Medication Instructions Recorded Confirmed Benztropine [Cogentin] 1 mg PO BID 09/12/17 09/12/17 Paliperidone Palmitate [Invega 156 mg IM QMONTH 09/12/17 09/12/17 Sustenna] Previous Rx's Medication Instructions Recorded Divalproex (12 HR) [Depakote (12 500 mg PO BID #60 tablet.dr 09/25/16 HR)] Acetaminophen [Tylenol] 650 mg PO Q6H PRN tablet 09/12/17 OxyCODONE/APAP 5/325 [Percocet 1 each PO Q6H PRN 2 Days #8 tablet 09/12/17 5/325 MG] Allergies Allergy/AdvReac Type Severity Reaction Status Date / Time No Known Allergies Allergy Verified 09/12/17 11:26 Constitutional: Reports: fever Cardiovascular: Reports: palpitations. Denies: chest pain Respiratory: Denies: cough, dyspnea Gastrointestinal: Denies: abdominal pain, nausea, vomiting Genitourinary: Denies: urgency, dysuria, frequency Neurological: Denies: headache Past Medical History - Past Medical History Medical history: Reports: other Surgical history: Reports: no surgical history Psychiatric history: Reports: bipolar, schizophrenia, previous psychiatric hospitalization - Social History Smoking Status: Never smoker Smokeless Tobacco Status: No Alcohol use: Reports: none Drug use: Reports: none Physical Exam - General Limitations: no limitations General appearance: alert, anxious Course Vital Signs Temperature 100.1 F H 01/26/19 16:11 Pulse Rate 148 01/26/19 16:11 Respiratory Rate 22 01/26/19 16:11 Blood Pressure 144/84 01/26/19 16:11 O2 Sat by Pulse Oximetry 94 01/26/19 16:11 Temperature 100.1 F H 01/26/19 16:11 Pulse Rate 148 01/26/19 16:11 Respiratory Rate 22 01/26/19 16:11 Blood Pressure 144/84 01/26/19 16:11 O2 Sat by Pulse Oximetry 94 01/26/19 16:11 Oxygen Delivery Oxygen Delivery Room Air Medical Decision Making - Lab Data Result diagrams: 01/26/19 16:45 01/26/19 16:45 Lab Results 01/26/19 01/26/19 01/26/19 Range/Units 16:40 16:40 16:45 WBC 7.7 (4.3-11.1) K/mcL RBC 4.97 (4.19-5.50) M/mcL Hgb 15.0 (12.9-16.9) g/dL Hct 43.3 (37.5-50.1) % MCV 87.1 (83.0-100.0) fL MCH 30.2 (28.0-33.3) pg MCHC 34.6 (31.6-35.5) g/dL RDW 11.9 (11.5-14.5) % Plt Count 188 (140-400) K/mcL MPV 9.6 (9.4-12.4) fL Immature Gran % 0.5 (0-4) % Seg Neutrophils % 78.4 % Lymphocytes % 13.4 % Monocytes % 7.3 % Eosinophils % 0.1 % Basophils % 0.3 % Neutrophils # 6.0 (1.6-8.9) K/mcL Lymphocytes # 1.0 (0.6-4.6) K/mcL Monocytes # 0.6 (0.0-1.3) K/mcL Eosinophils # 0.0 (0.0-0.6) K/mcL Basophils # 0.0 (0.0-0.2) K/mcL Sodium (136-145) mEq/L Potassium (3.5-5.1) mEq/L Chloride (98-107) mEq/L Carbon Dioxide (23-29) mEq/L BUN (6-20) mg/dL Creatinine (0.70-1.30) mg/dL Est GFR ( Amer) (> 60) Est GFR (Non-Af Amer) (> 60) BUN/Creatinine Ratio (6-26) Glucose (70-105) mg/dL Calculated Osmolality (280-300) Lactic Acid (0.5-2.2) mmol/L Calcium (8.6-10.3) mg/dL Total Bilirubin (0.3-1.0) mg/dL Direct Bilirubin (0.0-0.2) mg/dL Indirect Bilirubin (0.0-1.2) mg/dL AST (13-39) Units/L ALT (7-52) Units/L Alkaline Phosphatase (34-104) Units/L Ammonia (16-53) mcmol/L Creatine Kinase (30-223) Units/L Troponin I (< 0.04) ng/mL Serum Total Protein (6.4-8.9) g/dL Albumin (3.5-5.7) g/dL Globulin (2.4-3.5) g/dL Albumin/Globulin Ratio (1.1-2.2) Urine Color Yellow (Yellow) Urine Clarity Clear (Clear) Urine pH 6.0 (5.0-8.0) pH Units Ur Specific [place] 1.011 (1.010-1.025) Urine Protein 30 H (Neg-Trace) mg/dL Urine Glucose (UA) Normal (Normal) mg/dL Urine Ketones 15 H (Negative) mg/dL Urine Blood Negative (Negative) Urine Nitrite Negative (Negative) Urine Bilirubin Negative (Negative) Urine Urobilinogen Normal (Normal) mg/dL Ur Leukocyte Esterase Negative (Negative) Urine Microscopic RBC 3-5 H (0-3) per hpf Urine Microscopic WBC 0-3 (0-3) per hpf Ur Squamous Epith Cells Many H (None-Few) per lpf Urine Bacteria None Seen (None-Few) per hpf Hyaline Casts Few (None-Few) per lpf Salicylates (15.0-30.0) mg/dL Urine Opiates Screen Negative (Mcqyep=759) ng/mL Ur Buprenorphine Scrn Negative (Cutoff=5) ng/mL Acetaminophen (10-20) mcg/mL Ur Barbiturates Screen Negative (Xijuqt=353) ng/mL Valproic Acid (50-100) mcg/mL Ur Phencyclidine Scrn Negative (Cutoff=25) ng/mL Ur Amphetamines Screen Negative (Yjmyou=4756) ng/mL U Benzodiazepines Scrn Negative (Urcezj=234) ng/mL Urine Cocaine Screen Negative (Cutoff= 300) ng/mL U Marijuana (THC) Screen Negative (Cutoff = 50) ng/mL Ur Drug Screen Interp See Below Ethyl Alcohol (Less than 10) mg/dL 01/26/19 01/26/19 01/26/19 Range/Units 16:45 16:45 17:04 WBC (4.3-11.1) K/mcL RBC (4.19-5.50) M/mcL Hgb (12.9-16.9) g/dL Hct (37.5-50.1) % MCV (83.0-100.0) fL MCH (28.0-33.3) pg MCHC (31.6-35.5) g/dL RDW (11.5-14.5) % Plt Count (140-400) K/mcL MPV (9.4-12.4) fL Immature Gran % (0-4) % Seg Neutrophils % % Lymphocytes % % Monocytes % % Eosinophils % % Basophils % % Neutrophils # (1.6-8.9) K/mcL Lymphocytes # (0.6-4.6) K/mcL Monocytes # (0.0-1.3) K/mcL Eosinophils # (0.0-0.6) K/mcL Basophils # (0.0-0.2) K/mcL Sodium 137 (136-145) mEq/L Potassium 3.7 (3.5-5.1) mEq/L Chloride 101 (98-107) mEq/L Carbon Dioxide 20 L (23-29) mEq/L BUN 10 (6-20) mg/dL Creatinine 1.15 (0.70-1.30) mg/dL Est GFR ( Amer) > 60 (> 60) Est GFR (Non-Af Amer) > 60 (> 60) BUN/Creatinine Ratio 9 (6-26) Glucose 138 H (70-105) mg/dL Calculated Osmolality 285 (280-300) Lactic Acid 2.6 H (0.5-2.2) mmol/L Calcium 9.8 (8.6-10.3) mg/dL Total Bilirubin 0.5 (0.3-1.0) mg/dL Direct Bilirubin 0.1 (0.0-0.2) mg/dL Indirect Bilirubin 0.4 (0.0-1.2) mg/dL AST 21 (13-39) Units/L ALT 21 (7-52) Units/L Alkaline Phosphatase 41 (34-104) Units/L Ammonia 63 H (16-53) mcmol/L Creatine Kinase 155 (30-223) Units/L Troponin I < 0.03 (< 0.04) ng/mL Serum Total Protein 7.2 (6.4-8.9) g/dL Albumin 4.6 (3.5-5.7) g/dL Globulin 2.6 (2.4-3.5) g/dL Albumin/Globulin Ratio 1.8 (1.1-2.2) Urine Color (Yellow) Urine Clarity (Clear) Urine pH (5.0-8.0) pH Units Ur Specific [place] (1.010-1.025) Urine Protein (Neg-Trace) mg/dL Urine Glucose (UA) (Normal) mg/dL Urine Ketones (Negative) mg/dL Urine Blood (Negative) Urine Nitrite (Negative) Urine Bilirubin (Negative) Urine Urobilinogen (Normal) mg/dL Ur Leukocyte Esterase (Negative) Urine Microscopic RBC (0-3) per hpf Urine Microscopic WBC (0-3) per hpf Ur Squamous Epith Cells (None-Few) per lpf Urine Bacteria (None-Few) per hpf Hyaline Casts (None-Few) per lpf Salicylates < 2.5 L (15.0-30.0) mg/dL Urine Opiates Screen (Rtwybh=162) ng/mL Ur Buprenorphine Scrn (Cutoff=5) ng/mL Acetaminophen < 10 L (10-20) mcg/mL Ur Barbiturates Screen (Pwkdqd=002) ng/mL Valproic Acid 72 (50-100) mcg/mL Ur Phencyclidine Scrn (Cutoff=25) ng/mL Ur Amphetamines Screen (Fbpibh=0521) ng/mL U Benzodiazepines Scrn (Wybmjb=379) ng/mL Urine Cocaine Screen (Cutoff= 300) ng/mL U Marijuana (THC) Screen (Cutoff = 50) ng/mL Ur Drug Screen Interp Ethyl Alcohol < 10 (Less than 10) mg/dL Attestation Statement - Attestation Attestation: I reviewed the residents documentation and agree with the residents assessment and plan of care. I have personally had face to face time with the patient. (Brief History, Brief Exam, and MDM) I personally supervised and was present for the muir/critical portions of the following procedures completed by the resident: EKG 23 year old male presents to the ED with complaints of manic epsiode and was found hiding in closet and being aggressive. He states that he has been taking his valproic acid at home but the considereation is that he is presenting with anticholinergic syndrome. We have discussed case with Posion control who recommends L-carnitine at this time. Patient has been placed on 72 hr hold as well. Patinet has been treated with IVF and ativan therapy and is not experincing urinary retnetion at this time. WE will admit to medicine for medical clearance and then 1A consult needed
[2019-01-26] MEDS: 0.9 % Sodium Chloride 1,000 ML IVC SCH (19:41)
[2019-01-27] MEDS: 0.9 % Sodium Chloride 1,000 ML IVC SCH (03:59)
[2019-01-27 04:13] LABS: Basophils % 0.2 %; Eosinophils % 0.4 %; Hematocrit 40.4 % (37.5-50.1); Hemoglobin 13.8 g/dL (12.9-16.9); Immature Granulocytes % 0.2 % (0-4); Lymphocytes # 2.1 K/mcL (0.6-4.6); Lymphocytes % 24.7 %; Mean Corpuscular HGB Conc 34.2 g/dL (31.6-35.5); Mean Corpuscular Hemoglobin 30.2 pg (28.0-33.3); Mean Corpuscular Volume 88.4 fL (83.0-100.0); Mean Platelet Volume 9.4 fL (9.4-12.4); Monocytes # 1.4 K/mcL (0.0-1.3); Monocytes % 16.5 %; Neutrophils # 4.9 K/mcL (1.6-8.9); Platelet Count 165 K/mcL (140-400); Red Blood Count 4.57 M/mcL (4.19-5.50); White Blood Count 8.4 K/mcL (4.3-11.1)
[2019-01-27 04:35] LABS: BUN/Creatinine Ratio 10 (6-26); Blood Urea Nitrogen 8 mg/dL (6-20); Calcium 9.1 mg/dL (8.6-10.3); Carbon Dioxide 23 mEq/L (23-29); Chloride 109 mEq/L (98-107); Glucose 107 mg/dL (70-105); Osmolality,Calculated 289 (280-300); Potassium 3.7 mEq/L (3.5-5.1); Sodium 140 mEq/L (136-145); eGFR For African Americans > 60 (> 60); eGFR For Non-African Americans > 60 (> 60)
--- NOTE | 2019-01-27 14:01 | Consult Note ---
Date of Encounter: 01/27/19 Time of Encounter: 13:56 Assessment & Recommendation (1) Schizoaffective disorder, bipolar type Current visit: No Status: Acute Assessment & Recommendation: Recommend transfer to inpatient psych for medication stabilization once medically clear. History of Present Illness Requesting Physician: Dariela Canales Reason for consult: psychosis, agitation History of present illness: Mr. Loving is a 23 year old male with Schizoaffective Disorder who was admitted medically for possible anticholinergic syndrome and is now medically stable for transfer to . On eval client appears manic and psychotic. He is pacing around his room and appears unable to be still. Sitter present as client tried to leave the room with this radio script writer. He only answered questions with "I don't know about all that stuff." Unable to get much history from him. However, records indicate prior mental health hospitalizations and noncompliance with meds on an outpatient basis. Last discharged from on an Invega injection. Records indicate he is currently only taking Depakote and Cogentin which are likely not enough to sustain him. Some concern that he may have overtaken his Cogentin as he was initially presenting with symptoms of anticholinergic toxicity. However, client has consistently denied SI, intent, or plan and any overdose was likely not intentional. CC: Dariela Canales Past Med Surg Social Fam HX - Past Medical History Medical history: other - Past Psychiatric History Psychiatric history: Reports: bipolar, schizophrenia, previous psychiatric hospitalization Family psychiatric history: Unknown Family History of Suicide: Unknown - Past Surgical History Surgical History: no surgical history - Social History Smoking Status: Never smoker Smokeless Tobacco Status: No Alcohol use: none Drug use: none Medications & Allergies Divalproex (12 HR) [Depakote (12 HR)] 500 mg PO BID #60 tablet. 09/25/16 [Rx] Benztropine [Cogentin] 1 mg PO BID 09/12/17 [History] Paliperidone Palmitate [Invega Sustenna] 156 mg IM QMONTH 09/12/17 [History] Allergy/AdvReac Type Severity Reaction Status Date / Time No Known Allergies Allergy Verified 09/12/17 11:26 Review of Systems Constitutional: Denies: fever, chills, weakness, weight change Eyes: Denies: eye pain, vision change Ears, Nose, Throat: Denies: ear pain, throat pain, dental pain, hearing loss, congestion Cardiovascular: Denies: chest pain, palpitations, dyspnea on exertion Respiratory: Denies: cough, dyspnea, wheezes Gastrointestinal: Denies: abdominal pain, nausea, vomiting, diarrhea, constipation Genitourinary male: Denies: urgency, dysuria, frequency, genital lesions Musculoskeletal: Denies: joint swelling, joint pain Integumentary: Denies: rash, lesions, pruritus Neurological: Denies: headache, weakness, numbness, memory loss Endocrine: Denies: fatigue, heat or cold intolerance Hematologic/Lymphatic: Denies: easy bruising, lymphadenopathy Allergic/Immunologic: Denies: urticaria, itchy eyes Psychiatry Exam - Constitutional Vitals: Temp Pulse Resp BP Pulse Ox 98.4 F 96 14 134/79 96 01/27/19 06:52 01/27/19 06:52 01/27/19 06:52 01/27/19 06:52 01/27/19 00:03 General appearance: age & developmentally appropriate, well-groomed, well- nourished - Musculoskeletal Gait: normal Station: relaxed Strength & Tone: normal for patient - Psychiatric Patient Orientation: Yes Person Level of alertness: Alert Behavior: restless Psychomotor activity: Increased Eye Contact: Maintains Eye Contact Mood Description: Anxious Affect description: blunted Speech Volume: Normal Speech pattern: normal rate, normal rhythm, normal tone, fluent, spontaneous Language & Vocabulary: consistent with education Thought Process: Perseveration Thought Content: No Suicidal ideation, No Homicidal ideation Perceptual Disturbances: Yes Reacting to internal stimuli Attention Span Ability: Unable to Focus, Unable to Sustain Attention Memory Description: Immediate Intact, Recent Impaired, Remote Intact Patient Reliability: Not Reliable Historian Fund of knowledge: Yes below average Intelligence Estimate: Below Average Judgment: Limited Insight: Minimal Results - Drug Levels and Toxicology Drug Levels and Toxicology: Drug Levels and Toxicity 01/26/19 01/26/19 16:40 16:45 Urine Opiates Screen Negative Acetaminophen < 10 L Ur Barbiturates Screen Negative Ur Phencyclidine Scrn Negative Ur Amphetamines Screen Negative U Benzodiazepines Scrn Negative Urine Cocaine Screen Negative U Marijuana (THC) Screen Negative Ethyl Alcohol < 10 - Labs Labs: Laboratory Last Values WBC 8.4 K/mcL (4.3-11.1) 01/27/19 04:00 RBC 4.57 M/mcL (4.19-5.50) 01/27/19 04:00 Hgb 13.8 g/dL (12.9-16.9) 01/27/19 04:00 Hct 40.4 % (37.5-50.1) 01/27/19 04:00 MCV 88.4 fL (83.0-100.0) 01/27/19 04:00 MCH 30.2 pg (28.0-33.3) 01/27/19 04:00 MCHC 34.2 g/dL (31.6-35.5) 01/27/19 04:00 RDW 12.0 % (11.5-14.5) 01/27/19 04:00 Plt Count 165 K/mcL (140-400) 01/27/19 04:00 MPV 9.4 fL (9.4-12.4) 01/27/19 04:00 Immature Gran % 0.2 % (0-4) 01/27/19 04:00 Seg Neutrophils % 58.0 % 01/27/19 04:00 Lymphocytes % 24.7 % 01/27/19 04:00 Monocytes % 16.5 % 01/27/19 04:00 Eosinophils % 0.4 % 01/27/19 04:00 Basophils % 0.2 % 01/27/19 04:00 Neutrophils # 4.9 K/mcL (1.6-8.9) 01/27/19 04:00 Lymphocytes # 2.1 K/mcL (0.6-4.6) 01/27/19 04:00 Monocytes # 1.4 K/mcL (0.0-1.3) H 01/27/19 04:00 Eosinophils # 0.0 K/mcL (0.0-0.6) 01/27/19 04:00 Basophils # 0.0 K/mcL (0.0-0.2) 01/27/19 04:00 Sodium 140 mEq/L (136-145) 01/27/19 04:00 Potassium 3.7 mEq/L (3.5-5.1) 01/27/19 04:00 Chloride 109 mEq/L (98-107) H 01/27/19 04:00 Carbon Dioxide 23 mEq/L (23-29) 01/27/19 04:00 BUN 8 mg/dL (6-20) 01/27/19 04:00 Creatinine 0.83 mg/dL (0.70-1.30) 01/27/19 04:00 Est GFR ( Amer) > 60 (> 60) 01/27/19 04:00 Est GFR (Non-Af Amer) > 60 (> 60) 01/27/19 04:00 BUN/Creatinine Ratio 10 (6-26) 01/27/19 04:00 Glucose 107 mg/dL (70-105) H 01/27/19 04:00 Calculated Osmolality 289 (280-300) 01/27/19 04:00 Lactic Acid 1.5 mmol/L (0.5-2.2) 01/26/19 21:44 Calcium 9.1 mg/dL (8.6-10.3) 01/27/19 04:00 Magnesium 2.0 mg/dL (1.6-2.6) 01/27/19 04:00 Total Bilirubin 0.5 mg/dL (0.3-1.0) 01/26/19 16:45 Direct Bilirubin 0.1 mg/dL (0.0-0.2) 01/26/19 16:45 Indirect Bilirubin 0.4 mg/dL (0.0-1.2) 01/26/19 16:45 AST 21 Units/L (13-39) 01/26/19 16:45 ALT 21 Units/L (7-52) 01/26/19 16:45 Alkaline Phosphatase 41 Units/L (34-104) 01/26/19 16:45 Ammonia 53 mcmol/L (16-53) 01/27/19 04:00 Creatine Kinase 155 Units/L (30-223) 01/26/19 16:45 Troponin I < 0.03 ng/mL (< 0.04) 01/26/19 16:45 Serum Total Protein 7.2 g/dL (6.4-8.9) 01/26/19 16:45 Albumin 4.6 g/dL (3.5-5.7) 01/26/19 16:45 Globulin 2.6 g/dL (2.4-3.5) 01/26/19 16:45 Albumin/Globulin Ratio 1.8 (1.1-2.2) 01/26/19 16:45 Urine Color Yellow (Yellow) 01/26/19 16:40 Urine Clarity Clear (Clear) 01/26/19 16:40 Urine pH 6.0 pH Units (5.0-8.0) 01/26/19 16:40 Ur Specific [place] 1.011 (1.010-1.025) 01/26/19 16:40 Urine Protein 30 mg/dL (Neg-Trace) H 01/26/19 16:40 Urine Glucose (UA) Normal mg/dL (Normal) 01/26/19 16:40 Urine Ketones 15 mg/dL (Negative) H 01/26/19 16:40 Urine Blood Negative (Negative) 01/26/19 16:40 Urine Nitrite Negative (Negative) 01/26/19 16:40 Urine Bilirubin Negative (Negative) 01/26/19 16:40 Urine Urobilinogen Normal mg/dL (Normal) 01/26/19 16:40 Ur Leukocyte Esterase Negative (Negative) 01/26/19 16:40 Urine Microscopic RBC 3-5 per hpf (0-3) H 01/26/19 16:40 Urine Microscopic WBC 0-3 per hpf (0-3) 01/26/19 16:40 Ur Squamous Epith Cells Many per lpf (None-Few) H 01/26/19 16:40 Urine Bacteria None Seen per hpf (None-Few) 01/26/19 16:40 Hyaline Casts Few per lpf (None-Few) 01/26/19 16:40 Salicylates < 2.5 mg/dL (15.0-30.0) L 01/26/19 16:45 Urine Opiates Screen Negative ng/mL (Wpelwp=112) 01/26/19 16:40 Ur Buprenorphine Scrn Negative ng/mL (Cutoff=5) 01/26/19 16:40 Acetaminophen < 10 mcg/mL (10-20) L 01/26/19 16:45 Ur Barbiturates Screen Negative ng/mL (Jijold=261) 01/26/19 16:40 Valproic Acid 57 mcg/mL (50-100) 01/27/19 04:00 Ur Phencyclidine Scrn Negative ng/mL (Cutoff=25) 01/26/19 16:40 Ur Amphetamines Screen Negative ng/mL (Doslbk=1463) 01/26/19 16:40 U Benzodiazepines Scrn Negative ng/mL (Reugte=150) 01/26/19 16:40 Urine Cocaine Screen Negative ng/mL (Cutoff= 300) 01/26/19 16:40 U Marijuana (THC) Screen Negative ng/mL (Cutoff = 50) 01/26/19 16:40 Ur Drug Screen Interp See Below 01/26/19 16:40 Ethyl Alcohol < 10 mg/dL (Less than 10) 01/26/19 16:45 - Impressions Impressions Chest X-Ray 01/26/19 16:37 IMPRESSION: Normal portable chest examination. D/ / Delonte Swift MD / Delonte Swift MD Interpreting Provider: Delonte Swift MD Consult Discharge Plan - Plan
--- NOTE | 2019-01-27 14:33 | Internal Med Progress Note ---
Hospitalist Progress Note - Encounter Date of Encounter: 01/27/19 Time of Encounter: 11:00 - Subjective Interval History: Seen at bedside, Is still maniac. BUt very comfortable at this point. Deneis any fever or pain, Deneis fever, chillls. IS agitated because of the IV fluids. No acute evnets overnight. - Exam Vitals: Temp Pulse Resp BP Pulse Ox 98.4 F 96 14 134/79 96 01/27/19 06:52 01/27/19 06:52 01/27/19 06:52 01/27/19 06:52 01/27/19 00:03 Exam: General: Alert and oriented, hyper and maniac ,no physical distress, able to follow commands. Respiratory: Normal vesicular breathing, no added sounds, breathing equal in both sides. CVS: Normal heart sounds, no murmurs, no edema. Tachycardaic with the HR in 130s Gastrointestinal: Soft, nontender abdomen, normal abdominal sounds. No distention noted. Genitourinary: No paravertebral tenderness. Neurological: Alert and oriented. No focal deficits. Cranial nerves II-XII intact. PSychiatric:no suicidla ideation, - Assessment and Plan (1) Hyperammonemia Current Visit: Yes Status: Acute Assessment and Plan: -Resolved -Ammonia levels normaziled -Valproic acid on hold -Can be trasnferred to psychiatry department once beds available (2) Anticholinergic syndrome Current Visit: Yes Status: Acute Assessment and Plan: -Likely accidental -Patient denies suicidal ideation. HR in 90s niw -EKG with normal QRS and QTc -Temp normal now -Stop IV fludis -Appreciate oral intake -Benzodiazepines for agitation, IV lorazepam 1mg IVP Q4H\ (3) Lactic acidosis Current Visit: Yes Status: Acute Assessment and Plan: -Likley secodary to dehydration and elevated HR -resolved (4) History of schizophrenia Current Visit: No Status: Acute Assessment and Plan: -Needs trasnferred to sych floor -Will be transferred once stable -PSych on board, appreciate recommendations (5) Benztropine adverse reaction Current Visit: Yes Status: Acute Assessment and Plan: -Likely anticholinergic syndrome -No signs of neuroleptic malignant syndrome -Mangemtn exaplined above - Time Spent with Patient Total time spent is greater than 50% in coordination of care (as documented) at patient's floor/unit and/or counseling patient: Internal Medicine: Result - Labs CBC & Chem 7: 01/27/19 04:00 01/27/19 04:00 Labs: Short CBC 01/26/19 01/27/19 Range/Units 16:45 04:00 WBC 7.7 8.4 (4.3-11.1) K/mcL Hgb 15.0 13.8 (12.9-16.9) g/dL Hct 43.3 40.4 (37.5-50.1) % Plt Count 188 165 (140-400) K/mcL Neutrophils # 6.0 4.9 (1.6-8.9) K/mcL BMP 01/26/19 01/27/19 16:45 04:00 Sodium 137 140 Potassium 3.7 3.7 Chloride 101 109 H Carbon Dioxide 20 L 23 BUN 10 8 Creatinine 1.15 0.83 Glucose 138 H 107 H Calcium 9.8 9.1 Cardiac Enzymes 01/26/19 Range/Units 16:45 Troponin I < 0.03 (< 0.04) ng/mL Liver Function 01/26/19 Range/Units 16:45 Total Bilirubin 0.5 (0.3-1.0) mg/dL Direct Bilirubin 0.1 (0.0-0.2) mg/dL AST 21 (13-39) Units/L ALT 21 (7-52) Units/L Alkaline Phosphatase 41 (34-104) Units/L Albumin 4.6 (3.5-5.7) g/dL Urine 01/26/19 Range/Units 16:40 Urine Color Yellow (Yellow) Urine Clarity Clear (Clear) Urine pH 6.0 (5.0-8.0) pH Units Ur Specific [place] 1.011 (1.010-1.025) Urine Protein 30 H (Neg-Trace) mg/dL Urine Glucose (UA) Normal (Normal) mg/dL - Impressions Impressions Chest X-Ray 01/26/19 16:37 IMPRESSION: Normal portable chest examination. D/ / Delonte Swift MD / Delonte Swift MD Interpreting Provider: Delonte Swift MD Consult Discharge Plan - Plan Referrals: NONE,PCP [Primary Care Provider] - (2) Anticholinergic syndrome Qualifiers: Encounter type: initial encounter Injury intent: undetermined intent Qualified Code(s): T44.3X4A - Poisoning by other parasympatholytics [anticholinergics and antimuscarinics] and spasmolytics, undetermined, initial encounter
--- NOTE | 2019-01-27 15:27 | Discharge Summary ---
Date of Encounter: 01/27/19 Time of Encounter: 11:00 - Discharge Diagnosis (1) Hyperammonemia Priority: Secondary Status: Acute (2) Anticholinergic syndrome Priority: Primary Status: Acute Qualifiers: Encounter type: initial encounter Injury intent: undetermined intent Qualified Code(s): T44.3X4A - Poisoning by other parasympatholytics [anticholinergics and antimuscarinics] and spasmolytics, undetermined, initial encounter (3) Lactic acidosis Priority: Secondary Status: Acute (4) History of schizophrenia Priority: Secondary Status: Acute (5) Benztropine adverse reaction Priority: Secondary Status: Acute Hospital course: Mr. Loving is a 23 year old male with a past psychiatric hx of schziaoffective disrder was brought to the hospital for the concerns of zhou. Patient is taking Cogentin and valproic acid as an outpatient. The concerns of the drug overdose as the patient was showing signs of anticholinergic syndrome including elevated temperature, tachycardia, manic symptoms. Patient was started on supportive therapy with IV fluids and lorazepam. Patient condition got improved. His ammonia levels were also elevated, he is on valproic acid. As per the instructions of the poison control, valproic acid levels were checked 3 time which were normal. Ammonia levels were trended which also normalzied. Patient was given l-carnitine for hyperammonemia. Physiatry was consulted today. Patient is being transferred to inpatient psychiatric unit for further management. His medications stable at this point. - Time Spent with Patient Total time spent providing and/or coordinating discharge services: 35 minutes - Discharge Medications Prescriptions: Discontinued Divalproex (12 HR) [Depakote (12 HR)] 500 mg PO BID #60 tablet. Benztropine [Cogentin] 1 mg PO BID Paliperidone Palmitate [Invega Sustenna] 156 mg IM QMONTH Allergies/Adverse Reactions: Allergy/AdvReac Type Severity Reaction Status Date / Time No Known Allergies Allergy Verified 09/12/17 11:26 Date of admission: 01/26/19 19:09 Primary care physician: PCP NONE Consults: 01/27/19 07:37 Consult to Psychiatry [CONS] Routine Consulting Provider: [facility] Reason consult: Sitter/1:1 Psychosis Agitation Other reason and/or additional details: Presented with the agitation,was on vlaproic acid and cogentin, likely developed anticholinergic syndome, needs assessment if needes to be trsferred to the psych floor, medically stable now. Call Completed: Yes - Constitutional Vitals: Temp Pulse Resp BP Pulse Ox 98.4 F 96 14 134/79 96 01/27/19 06:52 01/27/19 06:52 01/27/19 06:52 01/27/19 06:52 01/27/19 00:03 Exam: General: Alert and oriented, hyper and maniac ,no physical distress, able to follow commands. Respiratory: Normal vesicular breathing, no added sounds, breathing equal in both sides. CVS: Normal heart sounds, no murmurs, no edema. Tachycardaic with the HR in 130s Gastrointestinal: Soft, nontender abdomen, normal abdominal sounds. No distention noted. Genitourinary: No paravertebral tenderness. Neurological: Alert and oriented. No focal deficits. Cranial nerves II-XII intact. PSychiatric:no suicidla ideation, - Patient Status Disposition: Transfer Psychiatric Hosp Condition: Good Functional capacity at discharge: independent ambulation Overall status at discharge: patient is not back to baseline - Discharge Instructions Follow Up With: NONE,PCP [Primary Care Provider] - Forms: ED Satisfaction Letter - Diet and Activity Activity: increase activity as tolerated Diet: advance to your usual diet
[2019-01-27 15:31] VITALS: BP 150/94
--- NOTE | 2019-01-27 16:35 | Electrocardiograph Report ---
[place] [id number] Test Date: 2019-01-26 Pat Name: Emanuel Loving Department: EXAM4 Room: Gender: M Cage Cashier: : 1995 Requested By: Sandy Wright Order Number: [id number] Reading MD: Alexandru Short Measurements Intervals [place] Rate: 150 P: 69 WI: 142 QRS: 51 QRSD: 81 T: -86 QT: 259 QTc: 410 Interpretive Statements Sinus tachycardia Electronically Signed On 01-27-2019 16:33:55 EDT by Alexandru Short
== END 2019-01-27 18:08 ==
LOC: 2NENU 16:11 → EMEROOARM 16:11 → SUATTDRO 19:09 → 2NENU 19:52
PROVIDERS: ADMIT Internal Medicine Nephrology; ATTEND Internal Medicine

== ENCOUNTER 2019-01-27 18:07 | Inpatient (IN) ==
[2019-01-27] MEDS ORDERED: MOM Conc 10 ML UD.LIQ PO PRN (18:17)
[2019-01-27] MEDS ORDERED: Mag Hydrox/Al Hydrox/Simeth 30 ML UDC PO PRN (18:17)
[2019-01-27] MEDS ORDERED: Ibuprofen 400 MG TABLET PO PRN (18:17)
[2019-01-27] MEDS ORDERED: Ziprasidone 20 MG CAPSULE PO PRN (18:21)
[2019-01-27] MEDS: Ziprasidone 20 MG in Water for inj. (sterile) 1 ML IM PRN (20:37)
[2019-01-27] MEDS: *HR* LORazepam 2 MG/ML VIAL IM PRN (20:38)
[2019-01-27] MEDS ORDERED: OLANZapine 10 MG VIAL IM ONE (21:43)
[2019-01-28] MEDS: Ziprasidone 20 MG in Water for inj. (sterile) 1 ML IM PRN (08:20)
[2019-01-28] MEDS: *HR* LORazepam 2 MG/ML VIAL IM PRN (08:22)
[2019-01-28] MEDS ORDERED: ChlorproMAZINE 25 MG/ML AMPUL IM STA (09:06)
--- NOTE | 2019-01-28 10:57 | Psychiatry History & Physical ---
Date of Encounter: 01/28/19 Time of Encounter: 10:51 History of Present Illness Patient Stated Chief Complaint: psychosis Medicare Admission Attestation: For traditional Medicare patients the provided hospital inpatient services are reasonable and necessary and in the case of services not specified as inpatient-only under 42 CFR 419.22 (n), that they are appropriately provided as inpatient services in accordance 42 CFR 412.3. For Critical Access Hospital the patient may reasonably be expected to be discharged or transferred to a hospital within 96 hours after admission to the Critical Access Hospital. Admitted From: Home Plans for Post Hospital Care: Home History of Present Illness: Mr. Loving is a 23 year old male who was admitted to secondary to zhou and psychosis. He was initially admitted to the medical floor due to concerns for an anticholinergic delirium and transferred to once medically clear. On the unit he has been loud, intrusive, and disruptive. He has required multiple rounds of emergency medications. He has knocked a clock off the wall, pulled out the refrigerator, and removed all the books from the shelves. Staff encouraged him to shower and he went into the shower room but came out dry with his original clothes on. At this point he is too elevated and psychotic to give this news writer any useful information. However, other staff members here are f amiliar with him from previous admissions. Was taking Invega Sustenna at the time of his last discharge from . Unclear how long he has been noncompliant with meds of if he has been noncompliant with meds. Reportedly has supportive family. Previously high functioning but has had multiple hospitalizations since his first psychotic break. According to staff he is polite and reserved when stable. Will likely need several days inpatient to stabilize. Past Med Surg Social Fam HX - Past Medical History Medical history: other - Past Psychiatric History Psychiatric history: Reports: bipolar, schizophrenia, previous psychiatric hospitalization Family psychiatric history: Unknown Family History of Suicide: Unknown - Past Surgical History Surgical History: no surgical history - Social History Smoking Status: Never smoker Smokeless Tobacco Status: No Alcohol use: none Drug use: none Medications & Allergies Benztropine [Cogentin] 1 mg PO BID 01/27/19 [History] Divalproex (24 HR) [Depakote ER (24 HR)] 1,000 mg PO BID 01/27/19 [History] Paliperidone Palmitate [Invega Sustenna] 234 mg IM QMONTH 01/27/19 [History] Allergy/AdvReac Type Severity Reaction Status Date / Time No Known Allergies Allergy Verified 09/12/17 11:26 Review of Systems Constitutional: Denies: fever, chills, weakness, weight change Eyes: Denies: eye pain, vision change Ears, Nose, Throat: Denies: ear pain, throat pain, dental pain, hearing loss, congestion Cardiovascular: Denies: chest pain, palpitations, dyspnea on exertion Respiratory: Denies: cough, dyspnea, wheezes Gastrointestinal: Denies: abdominal pain, nausea, vomiting, diarrhea, constipation Genitourinary male: Denies: urgency, dysuria, frequency, genital lesions Musculoskeletal: Denies: joint swelling, joint pain Integumentary: Denies: rash, lesions, pruritus Neurological: Denies: headache, weakness, numbness, memory loss Endocrine: Denies: fatigue, heat or cold intolerance Hematologic/Lymphatic: Denies: easy bruising, lymphadenopathy Allergic/Immunologic: Denies: urticaria, itchy eyes Exam - HEENT Head exam IM: Present: atraumatic Eye exam IM: Present: EOMI, normal appearance, PERRL ENT exam IM: Present: normal exam - Neurological Neurological exam: Present: CN II-XII intact - Respiratory Respiratory exam IM: Present: CTAB - GI/Abdominal GI/Abdominal exam IM: Present: normal bowel sounds, soft. Absent: tenderness - Extremities Extremities exam IM: Present: full ROM - Skin Skin exam IM: Present: dry, warm - Constitutional Vitals: Temp Pulse Resp BP Pulse Ox 97.7 F 89 18 126/77 95 01/27/19 21:00 01/27/19 21:00 01/27/19 21:00 01/27/19 21:00 01/27/19 21:00 General appearance: age & developmentally appropriate - Musculoskeletal Gait: normal Station: relaxed Strength & Tone: normal for patient - Psychiatric Patient Orientation: Yes Person Level of alertness: Alert Behavior: agitated, impulsive Psychomotor activity: Increased Eye Contact: Maintains Eye Contact Mood Description: Elevated Affect description: blunted Speech Volume: Loud Speech pattern: normal rate, normal rhythm, normal tone, fluent, spontaneous Language & Vocabulary: consistent with education Thought Process: Disorganized Thought Content: No Suicidal ideation, No Homicidal ideation Perceptual Disturbances: Yes Reacting to internal stimuli Attention Span Ability: Unable to Focus, Unable to Sustain Attention Memory Description: Immediate Intact, Recent Impaired, Remote Intact Patient Reliability: Not Reliable Historian Fund of knowledge: Yes abstraction ability Intelligence Estimate: Average Judgment: Poor Insight: Minimal Assessment and Plan (1) Schizoaffective disorder, bipolar type Current visit: No Status: Acute Plan: Admit inpatient for safety and stabilization, Close observation, Suicide Precautions per unit protocol, Encourage participation in unit milieu, Group Therapy, Monitor sleep, Monitor appetite Risks, benefits, side effects, alternatives discussed w/pt: Yes Patient agreeable to treatment: Yes Plans for Post Hospital Care: Home Estimated Length of Stay (Days): 7
[2019-01-28] MEDS: ChlorproMAZINE 25 MG/ML AMPUL IM PRN (12:10)
[2019-01-28] MEDS: hydrOXYzine pamoate 25 MG CAPSULE PO PRN (22:56)
[2019-01-28] MEDS: traZODone 50 MG TABLET PO PRN (22:56)
[2019-01-29] MEDS: chlorproMAZINE 25 MG TABLET PO PRN ×3 (07:46→17:36)
[2019-01-29] MEDS: *HR* LORazepam 1 MG TABLET PO PRN ×2 (07:46→17:37)
[2019-01-29] MEDS: ChlorproMAZINE 25 MG/ML AMPUL IM PRN (09:00)
[2019-01-29] MEDS: *HR* LORazepam 2 MG/ML VIAL IM PRN (09:00)
--- NOTE | 2019-01-29 11:37 | Psychiatry Progress Note ---
Date of Encounter: 01/29/19 Time of Encounter: 11:34 Subjective Interval history: Able to sleep for five hours last night but continues to be manic and psychotic when awake. He is intrusive and touching other patients. He has been refusing vital signs and interfering with staff taking vital signs of other patients by ripping the blood pressure cuff off their arms. He did take PO meds last night but refused this morning. Requires constant monitoring and redirection. Probate paperwork filed today. Review of Systems Constitutional: Denies: fever, chills, weakness, weight change Eyes: Denies: eye pain, vision change Ears, Nose, Throat: Denies: ear pain, throat pain, dental pain, hearing loss, congestion Cardiovascular: Denies: chest pain, palpitations, dyspnea on exertion Respiratory: Denies: cough, dyspnea, wheezes Gastrointestinal: Denies: abdominal pain, nausea, vomiting, diarrhea, constipation Musculoskeletal: Denies: joint swelling, joint pain Neurological: Denies: headache, weakness, numbness, memory loss Results - Vital Signs Vital Signs: Temp Pulse Resp BP Pulse Ox 98.3 F 123 20 121/77 92 01/29/19 09:00 01/29/19 09:00 01/29/19 09:00 01/29/19 09:00 01/29/19 09:00 Assessment and Plan (1) Schizoaffective disorder, bipolar type Current visit: No Status: Acute Plan: Continue hospitalization, Close observation, Suicide Precautions per unit protocol, Encourage participation in unit milieu, Group Therapy, Monitor sleep, Monitor appetite Risks, benefits, side effects, alternatives discussed w/pt: Yes Patient agreeable to treatment: Yes Consult Discharge Plan - Plan Referrals: NONE,PCP [Primary Care Provider] - Psychiatry Exam - Constitutional Vitals: Temp Pulse Resp BP Pulse Ox 98.3 F 123 20 121/77 92 01/29/19 09:00 01/29/19 09:00 01/29/19 09:00 01/29/19 09:00 01/29/19 09:00 General appearance: unkempt, disheveled - Musculoskeletal Gait: normal Station: relaxed Strength & Tone: normal for patient - Psychiatric Patient Orientation: Yes Person, Yes Place Level of alertness: Alert Behavior: agitated Psychomotor activity: Increased Eye Contact: Intense Contact Mood Description: Elevated Affect description: blunted Speech Volume: Normal Speech pattern: repetetive Language & Vocabulary: consistent with education Thought Process: Disorganized Thought Content: No Suicidal ideation, No Homicidal ideation Perceptual Disturbances: Yes Reacting to internal stimuli Attention Span Ability: Unable to Focus, Unable to Sustain Attention Memory Description: Immediate Intact, Recent Impaired, Remote Intact Patient Reliability: Not Reliable Historian Fund of knowledge: Yes abstraction ability, Yes below average Intelligence Estimate: Average Judgment: Poor Insight: Minimal
[2019-01-29] MEDS: traZODone 50 MG TABLET PO PRN (20:56)
--- NOTE | 2019-01-30 09:28 | Psychiatry Progress Note ---
Date of Encounter: 01/30/19 Time of Encounter: 09:24 Subjective Interval history: Small improvements. Able to sleep 8 hours last night. Attempted to attend a group. Did not require emergency meds on evening shift. However, yesterday he required constant redirection. Urinated on the floor, removed all of his bedclothes stating he was leaving, had to be medicated twice. Staff spoke with family members this morning and client was apparently doing well a month ago. He was even driving. His outpatient psychiatrist changed his med regimen and client has been decompensating since. When he was initially admitted his VPA level was 71 so suspect he was compliant with treatment and just not able to tolerate the changes to his normal med regimen. Will get a list of what he was previously taking and try to stabilize him with his original regimen. Probate paperwork filed yesterday. Review of Systems Constitutional: Denies: fever, chills, weakness, weight change Eyes: Denies: eye pain, vision change Ears, Nose, Throat: Denies: ear pain, throat pain, dental pain, hearing loss, congestion Cardiovascular: Denies: chest pain, palpitations, dyspnea on exertion Respiratory: Denies: cough, dyspnea, wheezes Gastrointestinal: Denies: abdominal pain, nausea, vomiting, diarrhea, constipation Musculoskeletal: Denies: joint swelling, joint pain Neurological: Denies: headache, weakness, numbness, memory loss Results - Vital Signs Vital Signs: Temp Pulse Resp BP Pulse Ox 97.6 F 114 18 131/89 97 01/29/19 19:53 01/29/19 19:53 01/29/19 19:53 01/29/19 19:53 01/29/19 19:53 Assessment and Plan (1) Schizoaffective disorder, bipolar type Current visit: No Status: Acute Plan: Continue hospitalization, Close observation, Suicide Precautions per unit protocol, Encourage participation in unit milieu, Group Therapy, Monitor sleep, Monitor appetite Risks, benefits, side effects, alternatives discussed w/pt: Yes Patient agreeable to treatment: Yes Consult Discharge Plan - Plan Referrals: NONE,PCP [Primary Care Provider] - Psychiatry Exam - Constitutional Vitals: Temp Pulse Resp BP Pulse Ox 97.6 F 114 18 131/89 97 01/29/19 19:53 01/29/19 19:53 01/29/19 19:53 01/29/19 19:53 01/29/19 19:53 General appearance: unkempt, disheveled - Musculoskeletal Gait: slow Station: relaxed Strength & Tone: normal for patient - Psychiatric Patient Orientation: Yes Person, Yes Place Level of alertness: Alert Behavior: agitated Psychomotor activity: Increased Eye Contact: Intense Contact Mood Description: Elevated Affect description: blunted Speech Volume: Normal Speech pattern: repetetive Language & Vocabulary: consistent with education Thought Process: Disorganized Thought Content: No Suicidal ideation, No Homicidal ideation Perceptual Disturbances: Yes Reacting to internal stimuli Attention Span Ability: Unable to Focus, Unable to Sustain Attention Memory Description: Immediate Intact, Recent Impaired, Remote Intact Patient Reliability: Not Reliable Historian Fund of knowledge: Yes abstraction ability, Yes below average, Yes aware of current events Intelligence Estimate: Average Judgment: Poor Insight: Minimal
[2019-01-30] MEDS: Divalproex (12 HR) 500 MG TABLET PO SCH (20:57)
[2019-01-31] MEDS: Divalproex (12 HR) 500 MG TABLET PO SCH ×2 (08:10→21:02)
--- NOTE | 2019-01-31 10:04 | Psychiatry Progress Note ---
Date of Encounter: 01/31/19 Time of Encounter: 09:53 Subjective Interval history: Slightly less intrusive but still very ill. Staff were able to obtain client's outpatient records and it appears client was stable on on Invega Sustenna 156mg monthly and Depakote 1000mg daily for a long period of time. Staff were under the impression that his medications were changed by his outpatient doctor but it appears the only changes made were to increase his Depakote to 2000mg daily and his Sustenna to 234mg monthly at his last visit. Client received the Sustenna injection on 01/17/19 and won't be due again for a couple of weeks. His VPA level was therapeutic when he came in to the hospital so do not think compliance was an issue. According to family client was driving and functioning well until about a month ago. They felt the med changes made him worse. However, if the only changes made at his last psychiatry appointment were to increase the doses of what he was already prescribed, then chances are good client was starting to decompensate and his provider recognized this and was trying to manage the increase in symptoms with higher doses of meds. Unclear what caused him to decompensate. However, it is concerning that he became so ill so fast while compliant with a med regimen that normally works for him. Client lives with his grandmother. Staff spoke with her and she is supportive and believes in medications. Client's mother is apparently ill and believes client is sick because he has demons in him. However, client's grandmother appears to be the bigger influence and is the one client resides with. Client has a history of EPS to Haldol/typical agents. Given that he is already loaded on Invega Sustenna will need to be careful about how much medication he receives. Currently using Chlorpromazine as a prn/emergency med. Will plan to stick with it for now to try and avoid any negative reactions. Probate hearing next week. Client is picking and choosing his oral meds right now and probably is not getting enough Depakote to fully stabilize his mood. Review of Systems Constitutional: Denies: fever, chills, weakness, weight change Eyes: Denies: eye pain, vision change Ears, Nose, Throat: Denies: ear pain, throat pain, dental pain, hearing loss, congestion Cardiovascular: Denies: chest pain, palpitations, dyspnea on exertion Respiratory: Denies: cough, dyspnea, wheezes Gastrointestinal: Denies: abdominal pain, nausea, vomiting, diarrhea, constipation Musculoskeletal: Denies: joint swelling, joint pain Neurological: Denies: headache, weakness, numbness, memory loss Results - Vital Signs Vital Signs: Temp Pulse Resp BP Pulse Ox 96.7 F L 129 18 157/84 97 01/31/19 09:00 01/31/19 09:00 01/31/19 09:00 01/31/19 09:00 01/31/19 09:00 Assessment and Plan (1) Schizoaffective disorder, bipolar type Current visit: No Status: Acute Plan: Continue hospitalization, Close observation, Suicide Precautions per unit protocol, Encourage participation in unit milieu, Group Therapy, Monitor sleep, Monitor appetite Risks, benefits, side effects, alternatives discussed w/pt: Yes Patient agreeable to treatment: Yes Consult Discharge Plan - Plan Referrals: NONE,PCP [Primary Care Provider] - Psychiatry Exam - Constitutional Vitals: Temp Pulse Resp BP Pulse Ox 96.7 F L 129 18 157/84 97 01/31/19 09:00 01/31/19 09:00 01/31/19 09:00 01/31/19 09:00 01/31/19 09:00 General appearance: disheveled - Musculoskeletal Gait: normal Station: relaxed Strength & Tone: normal for patient - Psychiatric Patient Orientation: Yes Person, Yes Place Level of alertness: Alert Behavior: agitated Psychomotor activity: Increased Eye Contact: Intense Contact Affect description: blunted Speech Volume: Normal Speech pattern: repetetive Language & Vocabulary: consistent with education Thought Process: Perseveration Thought Content: No Suicidal ideation, No Homicidal ideation Perceptual Disturbances: Yes Reacting to internal stimuli Attention Span Ability: Unable to Focus, Unable to Sustain Attention Memory Description: Grossly Intact Patient Reliability: Not Reliable Historian Fund of knowledge: Yes abstraction ability Intelligence Estimate: Average Judgment: Poor Insight: Minimal
[2019-01-31] MEDS: *HR* LORazepam 1 MG TABLET PO PRN (13:11)
[2019-01-31] MEDS: chlorproMAZINE 25 MG TABLET PO PRN (13:11)
[2019-01-31] MEDS: traZODone 50 MG TABLET PO PRN (21:02)
[2019-01-31] MEDS: hydrOXYzine pamoate 25 MG CAPSULE PO PRN (21:02)
[2019-02-01] MEDS: Divalproex (12 HR) 500 MG TABLET PO SCH ×2 (08:56→21:26)
--- NOTE | 2019-02-01 10:15 | Psychiatry Progress Note ---
Date of Encounter: 02/01/19 Time of Encounter: 10:10 Subjective Interval history: Client is doing better. Took PO meds last night and this morning. More organization to behaviors. When another client needed a napkin he got up and got her a paper towel. However, he still has a ways to go. Thoughts are clearly still racing. Speech is repetative and child-like. Unable to tolerate too much stimulation. Asked this entry writer to stop typing when he wandered into my office uninvited. Did not want to leave office but said typing interfered with his thoughts. Focused on eating spinach today. Tends to perseverate on random topics. Needs a few more days yet. Review of Systems Constitutional: Denies: fever, chills, weakness, weight change Eyes: Denies: eye pain, vision change Ears, Nose, Throat: Denies: ear pain, throat pain, dental pain, hearing loss, congestion Cardiovascular: Denies: chest pain, palpitations, dyspnea on exertion Respiratory: Denies: cough, dyspnea, wheezes Gastrointestinal: Denies: abdominal pain, nausea, vomiting, diarrhea, constipation Musculoskeletal: Denies: joint swelling, joint pain Neurological: Denies: headache, weakness, numbness, memory loss Results - Vital Signs Vital Signs: Temp Pulse Resp BP Pulse Ox 98.2 F 16 97 138/80 16 02/01/19 09:00 02/01/19 09:00 02/01/19 09:00 02/01/19 09:00 02/01/19 09:00 Assessment and Plan (1) Schizoaffective disorder, bipolar type Current visit: No Status: Acute Plan: Continue hospitalization, Close observation, Suicide Precautions per unit protocol, Encourage participation in unit milieu, Group Therapy, Monitor sleep, Monitor appetite Risks, benefits, side effects, alternatives discussed w/pt: Yes Patient agreeable to treatment: Yes Consult Discharge Plan - Plan Referrals: [facility] [Outside] Psychiatry Exam - Constitutional Vitals: Temp Pulse Resp BP Pulse Ox 98.2 F 16 97 138/80 16 02/01/19 09:00 02/01/19 09:00 02/01/19 09:00 02/01/19 09:00 02/01/19 09:00 General appearance: unkempt, disheveled - Musculoskeletal Gait: normal Station: relaxed Strength & Tone: normal for patient - Psychiatric Patient Orientation: Yes Person, Yes Place Level of alertness: Alert Behavior: restless Psychomotor activity: Increased Eye Contact: Maintains Eye Contact Mood Description: Elevated Affect description: blunted Speech Volume: Normal Speech pattern: repetetive Language & Vocabulary: consistent with education Thought Process: Perseveration Thought Content: No Suicidal ideation, No Homicidal ideation Perceptual Disturbances: Yes Reacting to internal stimuli Attention Span Ability: Capable of Focused Attention, Unable to Sustain Attention Memory Description: Immediate Intact, Recent Impaired, Remote Intact Patient Reliability: Questionable Historian Fund of knowledge: Yes abstraction ability Intelligence Estimate: Average Judgment: Poor Insight: Partial
[2019-02-01] MEDS: traZODone 50 MG TABLET PO PRN (21:26)
[2019-02-01] MEDS: hydrOXYzine pamoate 25 MG CAPSULE PO PRN (21:26)
[2019-02-02] MEDS: Divalproex (12 HR) 500 MG TABLET PO SCH ×2 (09:19→20:44)
--- NOTE | 2019-02-02 10:56 | Psychiatry Progress Note ---
Date of Encounter: 02/02/19 Time of Encounter: 10:53 Subjective Interval history: Doing a bit better. Slept all night. Remains child-like with repetative speech. Intrusive but less so. 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 Yesterday it was eating spinach. Today it is filing his nails. Not back to baseline yet. However, he no longer requires a 1:1 and he is more redirectable. Review of Systems Constitutional: Denies: fever, chills, weakness, weight change Eyes: Denies: eye pain, vision change Ears, Nose, Throat: Denies: ear pain, throat pain, dental pain, hearing loss, congestion Cardiovascular: Denies: chest pain, palpitations, dyspnea on exertion Respiratory: Denies: cough, dyspnea, wheezes Gastrointestinal: Denies: abdominal pain, nausea, vomiting, diarrhea, constipation Musculoskeletal: Denies: joint swelling, joint pain Neurological: Denies: headache, weakness, numbness, memory loss Results - Vital Signs Vital Signs: Temp Pulse Resp BP Pulse Ox 97.9 F 115 18 126/60 97 02/02/19 09:00 02/02/19 09:00 02/02/19 09:00 02/02/19 09:00 02/02/19 09:00 Assessment and Plan (1) Schizoaffective disorder, bipolar type Current visit: No Status: Acute Plan: Continue hospitalization, Close observation, Suicide Precautions per unit protocol, Encourage participation in unit milieu, Group Therapy, Monitor sleep, Monitor appetite Risks, benefits, side effects, alternatives discussed w/pt: Yes Patient agreeable to treatment: Yes Consult Discharge Plan - Plan Referrals: [facility] [Outside] Psychiatry Exam - Constitutional Vitals: Temp Pulse Resp BP Pulse Ox 97.9 F 115 18 126/60 97 02/02/19 09:00 02/02/19 09:00 02/02/19 09:00 02/02/19 09:00 02/02/19 09:00 General appearance: unkempt, disheveled - Musculoskeletal Gait: normal Station: relaxed Strength & Tone: normal for patient - Psychiatric Patient Orientation: Yes Person, Yes Place Level of alertness: Alert Behavior: restless Psychomotor activity: Increased Eye Contact: Maintains Eye Contact Mood Description: Elevated Affect description: blunted Speech Volume: Normal Speech pattern: repetetive Language & Vocabulary: consistent with education Thought Process: Perseveration Thought Content: No Suicidal ideation, No Homicidal ideation, No Overt delusions Perceptual Disturbances: Yes Reacting to internal stimuli Attention Span Ability: Capable of Focused Attention Memory Description: Immediate Intact, Recent Impaired, Remote Intact Patient Reliability: Not Reliable Historian Fund of knowledge: Yes abstraction ability Intelligence Estimate: Average Judgment: Limited Insight: Minimal
[2019-02-02] MEDS: hydrOXYzine pamoate 25 MG CAPSULE PO PRN (20:43)
[2019-02-02] MEDS: traZODone 50 MG TABLET PO PRN (20:44)
[2019-02-03] MEDS: Divalproex (12 HR) 500 MG TABLET PO SCH ×2 (09:04→20:46)
--- NOTE | 2019-02-03 13:53 | Psychiatry Progress Note ---
Date of Encounter: 02/03/19 Time of Encounter: 10:00 Subjective Interval history: Client seen in unit. He was pacing while we spoke. Client was intrusive, but attenuated sine last evaluation. He was participating in group activities today, was easy to redirect, decreased repetitive vocalization. Decreased attention span. Unable to evaluate for signs of suicidal ideation/plan/intent due to inability to focus. He doesn't need 1:1 currently. Review of Systems ROS limited: due to patient condition Respiratory: Denies: cough, wheezes Gastrointestinal: Denies: abdominal pain, nausea, vomiting Integumentary: Denies: rash Neurological: Denies: headache, weakness, numbness Psychiatric: Denies: depression, anxiety, abnormal sleep pattern Results - Vital Signs Vital Signs: Temp Pulse Resp BP Pulse Ox 97.8 F 112 22 130/78 100 02/03/19 09:00 02/03/19 09:00 02/03/19 09:00 02/03/19 09:00 02/03/19 09:00 Assessment and Plan (1) Schizoaffective disorder, bipolar type Current visit: No Status: Acute Plan: Continue hospitalization, Close observation, Suicide Precautions per unit protocol, Encourage participation in unit milieu, Group Therapy Additional Plan: Client continues to progress towards stable baseline. He is less intrusive and not experiencing manic episode. Plan is to discharge on 02/06/19 to grandparents. Will continue current medications. Risks, benefits, side effects, alternatives discussed w/pt: Yes Patient agreeable to treatment: Yes Consult Discharge Plan - Plan Referrals: [facility] [Outside] - Attending Attestation I examined this patient and my medical decision-making was reviewed with the Resident Physician. I agree with the documented findings, disposition and treatment plan as described except to the extent set forth below. Agree with mental status and plan. Psychiatry Exam - Constitutional Vitals: Temp Pulse Resp BP Pulse Ox 97.8 F 112 22 130/78 100 02/03/19 09:00 02/03/19 09:00 02/03/19 09:00 02/03/19 09:00 02/03/19 09:00 General appearance: age & developmentally appropriate - Musculoskeletal Gait: normal Station: relaxed Strength & Tone: normal for patient - Psychiatric Patient Orientation: Yes Person, Yes Time, Yes Place, Yes Circumstance Level of alertness: Alert, Follows commands Behavior: cooperative, restless Psychomotor activity: Normal Eye Contact: Maintains Eye Contact Mood Description: Euthymic/stable Affect description: congruent with mood Speech Volume: Normal Speech pattern: normal rhythm, normal tone Language & Vocabulary: consistent with education, limited Thought Process: Disorganized Thought Content: Yes Intact Perceptual Disturbances: No Reacting to internal stimuli, No Auditory hallucinations, No Visual hallucinations Attention Span Ability: Unable to Focus, Unable to Sustain Attention Memory Description: Immediate Intact, Remote Intact Patient Reliability: Questionable Historian Fund of knowledge: Yes below average Intelligence Estimate: Below Average Judgment: Limited Insight: Minimal
[2019-02-03] MEDS: traZODone 50 MG TABLET PO PRN (20:47)
[2019-02-03] MEDS: hydrOXYzine pamoate 25 MG CAPSULE PO PRN (20:47)
[2019-02-04] MEDS: Divalproex (12 HR) 500 MG TABLET PO SCH ×2 (09:00→21:09)
--- NOTE | 2019-02-04 14:38 | Psychiatry Progress Note ---
Date of Encounter: 02/04/19 Time of Encounter: 10:15 Subjective Interval history: Client seen pacing [facility]. He is still intrusive and exhibiting stereotypy. He was pleasant during our talk. He did exhibit excessive speech and echopraxia. He has improved in intrusive acts since yesterday when I visited with him. Plan is to discharge to the care of his grandparents tomorrow. Review of Systems ROS limited: due to patient condition Cardiovascular: Denies: chest pain, edema, syncope Respiratory: Denies: cough, dyspnea, wheezes Gastrointestinal: Denies: abdominal pain, nausea, vomiting Neurological: Denies: headache, weakness, confusion Psychiatric: Denies: depression, anxiety, abnormal sleep pattern, suicidal ideation, change in appetite Results - Vital Signs Vital Signs: Temp Pulse Resp BP Pulse Ox 97.7 F 115 14 112/63 98 02/04/19 09:00 02/04/19 09:00 02/04/19 09:00 02/04/19 09:00 02/04/19 09:00 Assessment and Plan (1) Schizoaffective disorder, bipolar type Current visit: No Status: Acute Plan: Continue hospitalization, Close observation, Suicide Precautions per unit protocol, Encourage participation in unit milieu, Group Therapy, Monitor sleep Risks, benefits, side effects, alternatives discussed w/pt: Yes Patient agreeable to treatment: Yes Consult Discharge Plan - Plan Referrals: [facility] [Outside] - Attending Attestation I examined this patient and my medical decision-making was reviewed with the Resident Physician. I agree with the documented findings, disposition and treatment plan as described except to the extent set forth below. Agree with mental status, assessment, and plan. Encourage groups, therapist to work on linkage. Psychiatry Exam - Constitutional Vitals: Temp Pulse Resp BP Pulse Ox 97.7 F 115 14 112/63 98 02/04/19 09:00 02/04/19 09:00 02/04/19 09:00 02/04/19 09:00 02/04/19 09:00 General appearance: age & developmentally appropriate - Musculoskeletal Gait: brisk Station: relaxed Strength & Tone: normal for patient - Psychiatric Patient Orientation: Yes Person, No Time, Yes Place Level of alertness: Alert, Follows commands Behavior: calm, cooperative, distractible, impulsive, talkative Psychomotor activity: Increased Eye Contact: Minimal Contact Mood Description: Anxious, Elevated Affect description: congruent with mood Speech Volume: Normal Speech pattern: disorganized, rambling, excessive, repetetive Language & Vocabulary: limited Thought Process: Disorganized Thought Content: No Suicidal ideation, No Homicidal ideation, No Overt delusions, No Ideas of reference, No Preoccupation, Yes Poverty of Content Perceptual Disturbances: No Reacting to internal stimuli, No Auditory hallucinations, No Visual hallucinations Attention Span Ability: Unable to Focus, Unable to Sustain Attention Memory Description: Grossly Intact, Immediate Intact, Recent Intact Patient Reliability: Questionable Historian Fund of knowledge: Yes average, Yes below average Intelligence Estimate: Below Average Judgment: Limited Insight: Minimal
[2019-02-04] MEDS: traZODone 50 MG TABLET PO PRN (21:09)
[2019-02-04] MEDS: hydrOXYzine pamoate 25 MG CAPSULE PO PRN (21:09)
[2019-02-05] MEDS: Divalproex (12 HR) 500 MG TABLET PO SCH (08:29)
[2019-02-05 09:18] VITALS: BP 107/76
--- NOTE | 2019-02-05 09:26 | Discharge Summary ---
Date of Encounter: 02/05/19 Time of Encounter: 07:30 Diagnosis - Discharge Diagnosis (1) Schizoaffective disorder, bipolar type Status: Acute Medications - Discharge Medications Prescriptions: Benztropine [Cogentin] 1 mg PO BID #60 tablet Divalproex (12 HR) [Depakote (12 HR)] 500 mg PO QAM #30 tablet. Divalproex (12 HR) [Depakote (12 HR)] 1,500 mg PO HS #90 tablet. Paliperidone [Invega] 9 mg PO DAILY #90 tab.[id number] Paliperidone Palmitate [Invega Sustenna] 234 mg IM QMONTH #1 syringe traZODone [TraZODone] 50 mg PO HS PRN #30 tablet PRN Reason: Insomnia hydrOXYzine pamoate [Vistaril] 25 mg PO TID PRN #45 capsule PRN Reason: Anxiety Benztropine [Cogentin] 1 mg PO BID #60 tablet 02/05/19 [Rx] Divalproex (12 HR) [Depakote (12 HR)] 1,500 mg PO HS #90 tablet. 02/05/19 [Rx] Divalproex (12 HR) [Depakote (12 HR)] 500 mg PO QAM #30 tablet. 02/05/19 [Rx] Paliperidone Palmitate [Invega Sustenna] 234 mg IM QMONTH #1 syringe 02/05/19 [Rx] Paliperidone [Invega] 9 mg PO DAILY #90 tab.[id number] 02/05/19 [Rx] hydrOXYzine pamoate [Vistaril] 25 mg PO TID PRN #45 capsule 02/05/19 [Rx] traZODone [TraZODone] 50 mg PO HS PRN #30 tablet 02/05/19 [Rx] Allergy/AdvReac Type Severity Reaction Status Date / Time No Known Allergies Allergy Verified 09/12/17 11:26 Provider Date of admission: 01/27/19 18:07 Primary care physician: PCP NONE Discharging clinician: Leila Booker Psychiatry Exam - Constitutional Vitals: Temp Pulse Resp BP Pulse Ox 97.8 F 130 16 107/76 96 02/05/19 09:00 02/05/19 09:00 02/05/19 09:00 02/05/19 09:00 02/05/19 09:00 General appearance: age & developmentally appropriate, well-groomed, well- nourished - Musculoskeletal Gait: normal Station: relaxed Strength & Tone: normal for patient - Psychiatric Patient Orientation: Yes Person, Yes Time, Yes Place, Yes Circumstance Level of alertness: Alert Behavior: calm, cooperative Psychomotor activity: Increased Eye Contact: Intense Contact Mood Description: Euthymic/stable Patient description of mood: great Affect description: congruent with mood, full range Speech Volume: Normal Speech pattern: normal rate, normal rhythm, normal tone, fluent, spontaneous Language & Vocabulary: limited Thought Process: Linear, Goal Oriented Thought Content: No Suicidal ideation, No Homicidal ideation, No Overt delusions Perceptual Disturbances: No Auditory hallucinations, No Visual hallucinations Attention Span Ability: Capable of Focused Attention Memory Description: Grossly Intact Patient Reliability: Reliable Historian Fund of knowledge: Yes abstraction ability, Yes aware of current events Intelligence Estimate: Average Judgment: Good Insight: Full Hospital Course Hospital course: Mr. Loving is a 23 year old male who was admitted for zhou and psychosis. He initially required one-to-one supervision. He then went back on his medications and he began improving. He has last had his long-acting injectable on January 17. Patient was educated of diagnosis and the risk-benefit side effects of this alternative treatment options and was monitored for responsiveness and side effects. Mood anxiety sleep and appetite interest improved as did future orientation. Self-harm thoughts subsided, thinking cleared, psychosis resolved, and mood stabilized. Patient was able to attend both individual and group therapy sessions as well as meet with the psychiatrist daily and urged to discuss any medication or treatment issues or other concerns. The patient was educated primarily by verbal means about their diagnosis and manifestations in their life. The option for treatment including group and individual therapy programming was offered to the patient in addition to the use of medications with all their potential risks, benefits, and side effects as well as the risks of not taking medication and non-adhereance were discussed with the patient at length. The patient was given the opportunity to ask questions and was noted to participate in the treatment in the planning process. The patient felt ready and eager to be discharged from the inpatient psychiatric unit to continue on with treatment as an outpatient. The patient agreed that is they were safe for this disposition. The patient was considered to be able to participate in informed consent and decision making with respect to medical, legal, and financial issues of the time of discharge. At the time of discharge the patient adamantly denied any concerns for lethality including suicidal or homicidal thoughts ideations or plans and was future oriented toward ongoing mental health care, medical follow-up and sobriety. Time spent discussing smoking cessation with patient: 3 to 10 minutes Does patient wish to continue nicotine replacement upon disc: No - Time Spent with Patient Total time spent providing and/or coordinating discharge services: 25 Less than 30 minutes Specific discharge activities: Interval history reviewed. Available labs reviewed . Psychotherapy provided. Patient had an opportunity to ask questions and address concerns. Patient was in agreement with the treatment plan. The risks benefits and side effects of medications were discussed with the patient, including alternatives and treatment. The patient was educated on the abstaining from any alcohol or illicit substances, following up with all scheduled appointments, and taking all medications as prescribed. Assessment and Plan - Patient/Caregiver Discharge Instructions Activity: resume usual activities as tolerated Diet: regular diet Additional Instructions: Continue current medications. Follow up with outpatient mental health. Encourage continued therapy in a group or individual setting. The patient was discharged to home. - Follow up Plan Follow up with: [facility] [Outside] Functional capacity at discharge: independent ambulation Overall status at discharge: Stable Disposition: Home, Self-Care Quality - Multiple Antipsychotics Patient discharged on 2 or more antipsychotic medications: No Procedures - Procedures Procedures: Medication Management, Crisis Stabilization, Supportive Therapy, Group Therapy, Psychoeducational Therapy
== END 2019-02-05 11:55 | disposition home or self-care (01) | DRG 885 ==
LOC: 1ANU 18:07
PROVIDERS: ADMIT Psychiatry & Neurology Psychiatry; ATTEND Psychiatry & Neurology Psychiatry

== ENCOUNTER 2019-09-15 16:47 | Inpatient (IN) ==
[2019-09-15 17:21] LABS: Bilirubin,Urine Negative (Negative); Blood,Urine Negative (Negative); Clarity,Urine Clear (Clear); Color,Urine Yellow (Yellow); Glucose,Urine (UA) Normal (Normal); Ketones,Urine 15 mg/dL (Negative); Leukocyte Esterase,Urine Negative (Negative); Nitrite,Urine Negative (Negative); Protein,Urine Negative (Neg-Trace); Urobilinogen,Urine Normal (Normal)
[2019-09-15 17:25] LABS: Amphetamine Screen,Urine Negative ng/mL (Cutoff=1000); Barbiturate Screen,Urine Negative ng/mL (Cutoff=200); Benzodiazepines Screen,Urine Negative ng/mL (Cutoff=200); Cannabinoid Screen,Urine Negative ng/mL (Cutoff = 50); Cocaine Screen,Urine Negative ng/mL (Cutoff= 300); Opiate Screen,Urine Negative ng/mL (Cutoff=300); Phencyclidine Screen,Urine Negative ng/mL (Cutoff=25)
[2019-09-15 17:45] LABS: Basophils % 0.5 %; Eosinophils # 0.2 K/mcL (0.0-0.6); Eosinophils % 3.3 %; Hemoglobin 15.6 g/dL (12.9-16.9); Immature Granulocytes % 0.2 % (0-4); Lymphocytes # 1.5 K/mcL (0.6-4.6); Lymphocytes % 27.1 %; Mean Corpuscular HGB Conc 34.7 g/dL (31.6-35.5); Mean Corpuscular Hemoglobin 30.8 pg (28.0-33.3); Mean Corpuscular Volume 88.9 fL (83.0-100.0); Mean Platelet Volume 9.4 fL (9.4-12.4); Monocytes # 0.7 K/mcL (0.0-1.3); Monocytes % 11.8 %; Neutrophils # 3.3 K/mcL (1.6-8.9); Platelet Count 202 K/mcL (140-400); Red Blood Count 5.06 M/mcL (4.19-5.50); Red Cell Distribution Width 11.7 % (11.5-14.5); Segmented Neutrophils % 57.1 %; White Blood Count 5.7 K/mcL (4.3-11.1)
[2019-09-15 18:04] LABS: Acetaminophen < 10 mcg/mL (10-20); BUN/Creatinine Ratio 21 (6-26); Blood Urea Nitrogen 16 mg/dL (6-20); Calcium 9.5 mg/dL (8.6-10.3); Carbon Dioxide 23 mEq/L (23-29); Chloride 109 mEq/L (98-107); Chol/HDL Ratio 6.5 (0-4.9); Cholesterol 207 mg/dL (< 200); Ethanol < 10 mg/dL (Less than 10); Glucose 119 mg/dL (70-105); HDL Cholesterol 32 mg/dL (40-59); LDL Cholesterol,Calculated 134 mg/dL (0-99); Osmolality,Calculated 292 (280-300); Salicylate < 2.5 mg/dL (15.0-30.0); Sodium 140 mEq/L (136-145); Triglycerides 204 mg/dL (< 150); eGFR For African Americans > 60 (> 60); eGFR For Non-African Americans > 60 (> 60)
[2019-09-15 18:15] LABS: Estimated Average Glucose 105 mg/dl
[2019-09-15] MEDS ORDERED: *HR* LORazepam 2 MG/ML VIAL IM ONE (21:34)
[2019-09-15] MEDS ORDERED: *HR* LORazepam 1 MG TABLET PO ONE (21:35)
[2019-09-15] MEDS ORDERED: MOM Conc 10 ML UD.LIQ PO PRN (23:27)
[2019-09-15] MEDS ORDERED: *HR* LORazepam 2 MG/ML VIAL IM PRN (23:27)
[2019-09-15] MEDS ORDERED: Mag Hydrox/Al Hydrox/Simeth 30 ML UDC PO PRN (23:27)
[2019-09-15] MEDS ORDERED: hydrOXYzine pamoate 25 MG CAPSULE PO PRN (23:27)
[2019-09-15] MEDS ORDERED: Acetaminophen 325 MG TABLET PO PRN (23:27)
[2019-09-15] MEDS ORDERED: Haloperidol Lactate 5 MG/ML VIAL IM PRN (23:27)
[2019-09-16] MEDS ORDERED: traZODone 50 MG TABLET PO PRN (11:40)
[2019-09-16] MEDS: Divalproex (12 HR) 500 MG TABLET PO SCH (20:31)
[2019-09-17] MEDS: Divalproex (12 HR) 500 MG TABLET PO SCH ×2 (09:15→20:28)
[2019-09-17] MEDS: haloperidoL 5 MG TABLET PO PRN (14:39)
[2019-09-17] MEDS: *HR* LORazepam 1 MG TABLET PO PRN (14:40)
[2019-09-17] MEDS: traZODone 50 MG TABLET PO PRN (20:28)
[2019-09-18] MEDS: Divalproex (12 HR) 500 MG TABLET PO SCH ×2 (10:57→22:00)
[2019-09-18] MEDS: *HR* LORazepam 1 MG TABLET PO SCH ×2 (15:24→22:02)
[2019-09-19 12:20] LABS: Glucose 104 mg/dL (70-105); Valproate 121 mcg/mL (50-100)
[2019-09-19] MEDS: *HR* LORazepam 1 MG TABLET PO SCH ×4 (12:48→20:10)
[2019-09-19] MEDS: Divalproex (12 HR) 500 MG TABLET PO SCH (12:49)
[2019-09-19] MEDS: traZODone 50 MG TABLET PO PRN (20:09)
[2019-09-19] MEDS: hydrOXYzine pamoate 25 MG CAPSULE PO PRN (20:10)
[2019-09-20] MEDS: *HR* LORazepam 1 MG TABLET PO SCH ×3 (10:05→20:20)
[2019-09-20] MEDS: haloperidoL 5 MG TABLET PO PRN (14:01)
[2019-09-20] MEDS: traZODone 50 MG TABLET PO PRN (20:20)
[2019-09-20] MEDS: hydrOXYzine pamoate 25 MG CAPSULE PO PRN (20:21)
[2019-09-20] MEDS: Divalproex (24 HR) 500 MG TABLET PO SCH (20:21)
[2019-09-21] MEDS: *HR* LORazepam 1 MG TABLET PO SCH ×3 (09:32→20:08)
[2019-09-21] MEDS: haloperidoL 5 MG TABLET PO PRN (15:00)
[2019-09-21] MEDS: *HR* LORazepam 1 MG TABLET PO PRN (15:05)
[2019-09-21] MEDS: Divalproex (24 HR) 500 MG TABLET PO SCH (20:08)
[2019-09-21] MEDS: traZODone 50 MG TABLET PO PRN (20:08)
[2019-09-21] MEDS: hydrOXYzine pamoate 25 MG CAPSULE PO PRN (20:08)
[2019-09-22] MEDS: *HR* LORazepam 1 MG TABLET PO SCH ×3 (10:01→20:54)
[2019-09-22] MEDS: Divalproex (24 HR) 500 MG TABLET PO SCH (20:53)
[2019-09-22] MEDS: traZODone 50 MG TABLET PO PRN (20:53)
[2019-09-23] MEDS: *HR* LORazepam 1 MG TABLET PO SCH ×3 (09:56→20:54)
[2019-09-23 11:55] LABS: Estimated Average Glucose 105 mg/dl
[2019-09-23] MEDS: Divalproex (24 HR) 500 MG TABLET PO SCH (20:53)
[2019-09-23] MEDS: traZODone 50 MG TABLET PO PRN (20:54)
[2019-09-24] MEDS: *HR* LORazepam 1 MG TABLET PO SCH (09:17)
[2019-09-24 09:42] VITALS: BP 128/74
[2019-09-24 10:47] LABS: Chol/HDL Ratio 5.1 (0-4.9)
== END 2019-09-24 11:25 | disposition home or self-care (01) | DRG 885 ==
LOC: EMEROOARM 16:47 → SUATTDRO 23:06 → 1ANU 23:06
PROVIDERS: ADMIT Psychiatry & Neurology Forensic Psychiatry; ATTEND Psychiatry & Neurology Psychiatry

== ENCOUNTER 2020-11-03 14:38 | Inpatient (IN) ==
[2020-11-03 15:24] LABS: Bilirubin,Urine Negative (Negative); Blood,Urine Negative (Negative); Clarity,Urine Clear (Clear); Color,Urine Colorless (Yellow); Glucose,Urine (UA) Normal (Normal); Ketones,Urine Negative (Negative); Leukocyte Esterase,Urine Negative (Negative); Nitrite,Urine Negative (Negative); Protein,Urine Negative (Neg-Trace); Specific Gravity,Urine < 1.005 (1.010-1.025); Urobilinogen,Urine Normal (Normal)
[2020-11-03 15:32] LABS: Basophils % 0.5 %; Eosinophils % 0.7 %; Hematocrit 48.5 % (37.5-50.1); Hemoglobin 16.5 g/dL (12.9-16.9); Immature Granulocytes % 0.3 % (0-4); Lymphocytes # 1.6 K/mcL (0.6-4.6); Mean Corpuscular Hemoglobin 29.9 pg (28.0-33.3); Mean Corpuscular Volume 87.9 fL (83.0-100.0); Mean Platelet Volume 9.7 fL (9.4-12.4); Monocytes # 0.7 K/mcL (0.0-1.3); Monocytes % 11.5 %; Neutrophils # 3.8 K/mcL (1.6-8.9); Platelet Count 197 K/mcL (140-400); Red Blood Count 5.52 M/mcL (4.19-5.50); Red Cell Distribution Width 11.9 % (11.5-14.5); White Blood Count 6.2 K/mcL (4.3-11.1)
[2020-11-03 15:34] LABS: Amphetamine Screen,Urine Negative ng/mL (Cutoff=1000); Barbiturate Screen,Urine Negative ng/mL (Cutoff=200); Benzodiazepines Screen,Urine Negative ng/mL (Cutoff=200); Cannabinoid Screen,Urine Negative ng/mL (Cutoff = 50); Cocaine Screen,Urine Negative ng/mL (Cutoff= 300); Opiate Screen,Urine Negative ng/mL (Cutoff=300); Phencyclidine Screen,Urine Negative ng/mL (Cutoff=25)
[2020-11-03 15:44] LABS: Acetaminophen < 10 mcg/mL (10-20); BUN/Creatinine Ratio 8 (6-26); Blood Urea Nitrogen 6 mg/dL (6-20); Calcium 9.8 mg/dL (8.6-10.3); Carbon Dioxide 23 mEq/L (23-29); Chloride 109 mEq/L (98-107); Chol/HDL Ratio 6.5 (0-4.9); Cholesterol 215 mg/dL (< 200); Ethanol < 10 mg/dL (Less than 10); Glucose 98 mg/dL (70-105); HDL Cholesterol 33 mg/dL (40-59); LDL Cholesterol,Calculated 137 mg/dL (< 100); Osmolality,Calculated 286 (280-300); Potassium 3.9 mEq/L (3.5-5.1); Salicylate < 2.5 mg/dL (15.0-30.0); Sodium 139 mEq/L (136-145); Triglycerides 223 mg/dL (< 150); eGFR For African Americans > 60 (> 60); eGFR For Non-African Americans > 60 (> 60)
[2020-11-03 16:42] LABS: Estimated Average Glucose 103 mg/dl; Hemoglobin A1C 5.2 %
[2020-11-03] MEDS ORDERED: Haloperidol Lactate 5 MG/ML VIAL IM PRN (17:39)
[2020-11-03] MEDS ORDERED: *HR* LORazepam 2 MG/ML VIAL IM PRN (17:39)
[2020-11-03] MEDS ORDERED: Ibuprofen 400 MG TABLET PO PRN (17:39)
[2020-11-03] MEDS ORDERED: Acetaminophen 325 MG TABLET PO PRN (17:39)
[2020-11-03] MEDS ORDERED: haloperidoL 5 MG TABLET PO PRN (17:39)
[2020-11-03] MEDS ORDERED: Mag Hydrox/Al Hydrox/Simeth 30 ML UDC PO PRN (17:39)
[2020-11-03] MEDS ORDERED: hydrOXYzine pamoate 25 MG CAPSULE PO PRN (17:39)
[2020-11-03] MEDS ORDERED: MOM Conc 10 ML UD.LIQ PO PRN (17:39)
[2020-11-03] MEDS: QUEtiapine Fumarate 25 MG TABLET PO PRN (20:09)
[2020-11-03] MEDS ORDERED: *HR* LORazepam 1 MG TABLET PO PRN (20:12)
[2020-11-04] MEDS: Nicotine 21 MG PATCH.TD24 TD SCH (08:45)
[2020-11-04] MEDS ORDERED: traZODone 50 MG TABLET PO PRN (13:44)
[2020-11-04] MEDS ORDERED: PALIPERIDONE PALMITATE 234 MG/1.5 ML IM SCH (14:15)
[2020-11-04] MEDS: *HR* LORazepam 1 MG TABLET PO SCH ×2 (15:56→20:16)
[2020-11-04] MEDS: Divalproex (24 HR) 500 MG TABLET PO SCH (20:56)
[2020-11-04] MEDS ORDERED: Divalproex (24 HR) 500 MG TABLET PO SCH (21:00)
[2020-11-05] MEDS: *HR* LORazepam 1 MG TABLET PO SCH ×3 (08:48→21:15)
[2020-11-05] MEDS: Nicotine 21 MG PATCH.TD24 TD SCH (08:48)
[2020-11-05] MEDS ORDERED: PALIPERIDONE PALMITATE 234 MG/1.5 ML IM SCH (09:00)
[2020-11-05] MEDS: Divalproex (24 HR) 500 MG TABLET PO SCH (21:15)
[2020-11-05] MEDS: hydrOXYzine pamoate 25 MG CAPSULE PO PRN (21:15)
[2020-11-05] MEDS: QUEtiapine Fumarate 25 MG TABLET PO PRN (21:15)
[2020-11-06] MEDS: Nicotine 21 MG PATCH.TD24 TD SCH (11:16)
[2020-11-06] MEDS: *HR* LORazepam 1 MG TABLET PO SCH ×3 (11:17→20:40)
[2020-11-06] MEDS: QUEtiapine Fumarate 25 MG TABLET PO PRN (20:40)
[2020-11-06] MEDS: hydrOXYzine pamoate 25 MG CAPSULE PO PRN (20:41)
[2020-11-06] MEDS: Divalproex (24 HR) 500 MG TABLET PO SCH (20:41)
[2020-11-07] MEDS: Nicotine 21 MG PATCH.TD24 TD SCH (09:21)
[2020-11-07] MEDS: *HR* LORazepam 1 MG TABLET PO SCH ×3 (09:21→20:41)
[2020-11-07] MEDS: Divalproex (24 HR) 500 MG TABLET PO SCH (20:42)
[2020-11-07] MEDS: QUEtiapine Fumarate 25 MG TABLET PO PRN (20:42)
[2020-11-07] MEDS: hydrOXYzine pamoate 25 MG CAPSULE PO PRN (20:42)
[2020-11-08] MEDS: *HR* LORazepam 1 MG TABLET PO SCH ×3 (08:55→20:32)
[2020-11-08] MEDS: Nicotine 21 MG PATCH.TD24 TD SCH (08:55)
[2020-11-08] MEDS: Divalproex (24 HR) 500 MG TABLET PO SCH (20:31)
[2020-11-08] MEDS: hydrOXYzine pamoate 25 MG CAPSULE PO PRN (20:32)
[2020-11-08] MEDS: QUEtiapine Fumarate 25 MG TABLET PO PRN (20:32)
[2020-11-09] MEDS: *HR* LORazepam 1 MG TABLET PO SCH ×3 (09:36→20:25)
[2020-11-09] MEDS: hydrOXYzine pamoate 25 MG CAPSULE PO PRN (20:25)
[2020-11-09] MEDS: Divalproex (24 HR) 500 MG TABLET PO SCH (20:25)
[2020-11-09] MEDS: QUEtiapine Fumarate 25 MG TABLET PO PRN (20:25)
[2020-11-10] MEDS: *HR* LORazepam 1 MG TABLET PO SCH ×3 (09:00→21:55)
[2020-11-10] MEDS: Divalproex (24 HR) 500 MG TABLET PO SCH (21:54)
[2020-11-10] MEDS: hydrOXYzine pamoate 25 MG CAPSULE PO PRN (21:55)
[2020-11-11] MEDS: *HR* LORazepam 1 MG TABLET PO SCH ×3 (09:39→20:31)
[2020-11-11] MEDS: Divalproex (24 HR) 500 MG TABLET PO SCH (20:31)
[2020-11-12] MEDS: *HR* LORazepam 1 MG TABLET PO SCH ×2 (08:47→15:13)
[2020-11-12 09:10] VITALS: BP 122/73
[2020-11-12] MEDS ORDERED: PALIPERIDONE PALMITATE 156 MG/ML SYRINGE IM SCH (10:00)
[2020-11-13 18:22] LABS: Valproate Free 9 ug/mL (7-23); Valproate Total 78 ug/mL (50-125)
[2020-11-14 10:34] LABS: Valproate % Free 11 % (5-18)
== END 2020-11-12 18:15 | disposition home or self-care (01) | DRG 885 ==
LOC: EMEROOARM 14:38 → 1ANU 19:24 → INTOOBSV 19:24 → 1ANU 20:00
PROVIDERS: ADMIT Psychiatry & Neurology Forensic Psychiatry; ATTEND Psychiatry & Neurology Forensic Psychiatry

== ENCOUNTER 2020-12-27 12:57 | Inpatient (IN) ==
[2020-12-27 14:21] LABS: Bilirubin,Urine Negative (Negative); Blood,Urine Negative (Negative); Clarity,Urine Clear (Clear); Color,Urine Colorless (Yellow); Glucose,Urine (UA) Normal (Normal); Ketones,Urine Negative (Negative); Leukocyte Esterase,Urine Negative (Negative); Nitrite,Urine Negative (Negative); PH,Urine 7.5 pH Units (5.0-8.0); Protein,Urine Negative (Neg-Trace); Specific Gravity,Urine 1.005 (1.010-1.025); Urobilinogen,Urine Normal (Normal)
[2020-12-27 14:32] LABS: Basophils % 0.5 %; Eosinophils # 0.2 K/mcL (0.0-0.6); Hematocrit 47.6 % (37.5-50.1); Hemoglobin 16.6 g/dL (12.9-16.9); Immature Granulocytes % 0.3 % (0-4); Lymphocytes # 1.7 K/mcL (0.6-4.6); Lymphocytes % 25.9 %; Mean Corpuscular HGB Conc 34.9 g/dL (31.6-35.5); Mean Corpuscular Hemoglobin 30.1 pg (28.0-33.3); Mean Corpuscular Volume 86.2 fL (83.0-100.0); Mean Platelet Volume 9.7 fL (9.4-12.4); Monocytes # 0.8 K/mcL (0.0-1.3); Monocytes % 12.2 %; Neutrophils # 3.7 K/mcL (1.6-8.9); Platelet Count 189 K/mcL (140-400); Red Blood Count 5.52 M/mcL (4.19-5.50); Red Cell Distribution Width 11.9 % (11.5-14.5); Segmented Neutrophils % 58.1 %; White Blood Count 6.4 K/mcL (4.3-11.1)
[2020-12-27 14:34] LABS: Amphetamine Screen,Urine Negative ng/mL (Cutoff=1000); Barbiturate Screen,Urine Negative ng/mL (Cutoff=200); Benzodiazepines Screen,Urine Negative ng/mL (Cutoff=200); Cannabinoid Screen,Urine Negative ng/mL (Cutoff = 50); Cocaine Screen,Urine Negative ng/mL (Cutoff= 300); Opiate Screen,Urine Negative ng/mL (Cutoff=300); Phencyclidine Screen,Urine Negative ng/mL (Cutoff=25)
[2020-12-27 14:43] LABS: Acetaminophen < 10 mcg/mL (10-20); BUN/Creatinine Ratio 12 (6-26); Blood Urea Nitrogen 10 mg/dL (6-20); Calcium 9.6 mg/dL (8.6-10.3); Carbon Dioxide 24 mEq/L (23-29); Chloride 107 mEq/L (98-107); Chol/HDL Ratio 5.8 (0-4.9); Cholesterol 228 mg/dL (< 200); Ethanol < 10 mg/dL (Less than 10); Glucose 104 mg/dL (70-105); HDL Cholesterol 39 mg/dL (40-59); LDL Cholesterol,Calculated 128 mg/dL (< 100); Osmolality,Calculated 293 (280-300); Potassium 3.9 mEq/L (3.5-5.1); Salicylate < 2.5 mg/dL (15.0-30.0); Sodium 142 mEq/L (136-145); Triglycerides 304 mg/dL (< 150); eGFR For African Americans > 60 (> 60); eGFR For Non-African Americans > 60 (> 60)
[2020-12-27 14:44] LABS: Estimated Average Glucose 111 mg/dl; Hemoglobin A1C 5.5 %
[2020-12-27] MEDS ORDERED: Acetaminophen 325 MG TABLET PO PRN (16:36)
[2020-12-27] MEDS ORDERED: *HR* LORazepam 2 MG/ML VIAL IM PRN (16:36)
[2020-12-27] MEDS: traZODone 50 MG TABLET PO PRN (20:37)
[2020-12-27] MEDS: hydrOXYzine pamoate 25 MG CAPSULE PO PRN (20:37)
[2020-12-27] MEDS: *HR* LORazepam 1 MG TABLET PO PRN (21:56)
[2020-12-28] MEDS ORDERED: FluPHENAZine 25 MG/10 ML VIAL IM PRN (00:18)
[2020-12-28] MEDS ORDERED: *HR* LORazepam 1 MG TABLET PO ONE (01:56)
[2020-12-28] MEDS ORDERED: MOM Conc 10 ML UD.LIQ PO PRN (08:09)
[2020-12-28] MEDS ORDERED: Mag Hydrox/Al Hydrox/Simeth 30 ML UDC PO PRN (08:09)
[2020-12-28] MEDS ORDERED: Paliperidone Palmitate 156 MG/ML SYRINGE IM ONE (09:00)
[2020-12-28] MEDS: Nicotine 21 MG PATCH.TD24 TD SCH (10:17)
[2020-12-28] MEDS: Divalproex (24 HR) 500 MG TABLET PO SCH (21:59)
[2020-12-28] MEDS: hydrOXYzine pamoate 25 MG CAPSULE PO PRN (23:12)
[2020-12-28] MEDS: traZODone 50 MG TABLET PO PRN (23:12)
[2020-12-29] MEDS: Nicotine 21 MG PATCH.TD24 TD SCH (13:55)
[2020-12-29] MEDS: Divalproex (24 HR) 500 MG TABLET PO SCH (21:07)
[2020-12-29] MEDS: traZODone 50 MG TABLET PO PRN ×2 (21:07→23:12)
[2020-12-29] MEDS: hydrOXYzine pamoate 25 MG CAPSULE PO PRN (21:07)
[2020-12-30] MEDS: Nicotine 21 MG PATCH.TD24 TD SCH (15:38)
[2020-12-30] MEDS: hydrOXYzine pamoate 25 MG CAPSULE PO PRN (20:16)
[2020-12-30] MEDS: FluPHENAZine 10 MG TABLET PO SCH (20:16)
[2020-12-30] MEDS: traZODone 50 MG TABLET PO PRN ×2 (20:16→21:23)
[2020-12-30] MEDS: Divalproex (24 HR) 500 MG TABLET PO SCH (20:16)
[2020-12-31] MEDS: FluPHENAZine 10 MG TABLET PO SCH (21:04)
[2020-12-31] MEDS: Divalproex (24 HR) 500 MG TABLET PO SCH (21:04)
[2020-12-31] MEDS: traZODone 50 MG TABLET PO PRN (21:05)
[2020-12-31] MEDS: hydrOXYzine pamoate 25 MG CAPSULE PO PRN (21:05)
[2021-01-01] MEDS: hydrOXYzine pamoate 25 MG CAPSULE PO PRN (20:20)
[2021-01-01] MEDS: FluPHENAZine 10 MG TABLET PO SCH (20:20)
[2021-01-01] MEDS: traZODone 50 MG TABLET PO PRN (20:21)
[2021-01-01] MEDS: Divalproex (24 HR) 500 MG TABLET PO SCH (20:21)
[2021-01-02 13:24] LABS: Basophils % 0.6 %; Eosinophils # 0.2 K/mcL (0.0-0.6); Eosinophils % 3.9 %; Hematocrit 47.4 % (37.5-50.1); Hemoglobin 16.6 g/dL (12.9-16.9); Immature Granulocytes % 0.4 % (0-4); Lymphocytes # 1.9 K/mcL (0.6-4.6); Lymphocytes % 37.3 %; Mean Corpuscular Hemoglobin 30.4 pg (28.0-33.3); Mean Corpuscular Volume 86.8 fL (83.0-100.0); Mean Platelet Volume 9.7 fL (9.4-12.4); Monocytes # 0.5 K/mcL (0.0-1.3); Neutrophils # 2.4 K/mcL (1.6-8.9); Platelet Count 213 K/mcL (140-400); Red Blood Count 5.46 M/mcL (4.19-5.50); Segmented Neutrophils % 47.8 %; White Blood Count 5.1 K/mcL (4.3-11.1)
[2021-01-02 14:14] LABS: Alanine Aminotransferase 34 Units/L (7-52); Albumin 4.7 g/dL (3.5-5.7); Albumin/Globulin Ratio 1.9 (1.1-2.2); Alkaline Phosphatase 38 Units/L (34-104); Aspartate Amino Transferase 29 Units/L (13-39); BUN/Creatinine Ratio 11 (6-26); Bilirubin,Total 0.8 mg/dL (0.3-1.0); Blood Urea Nitrogen 10 mg/dL (6-20); Calcium 9.7 mg/dL (8.6-10.3); Carbon Dioxide 23 mEq/L (23-29); Chloride 106 mEq/L (98-107); Globulin 2.5 g/dL (2.4-3.5); Glucose 124 mg/dL (70-105); Osmolality,Calculated 286 (280-300); Potassium 4.3 mEq/L (3.5-5.1); Sodium 138 mEq/L (136-145); Total Protein 7.2 g/dL (6.4-8.9); eGFR For African Americans > 60 (> 60); eGFR For Non-African Americans > 60 (> 60)
[2021-01-02] MEDS: hydrOXYzine pamoate 25 MG CAPSULE PO PRN (20:13)
[2021-01-02] MEDS: traZODone 50 MG TABLET PO PRN (20:13)
[2021-01-02] MEDS: Divalproex (24 HR) 500 MG TABLET PO SCH (20:13)
[2021-01-02] MEDS: FluPHENAZine 10 MG TABLET PO SCH (20:13)
[2021-01-03] MEDS: *HR* LORazepam 1 MG TABLET PO PRN (19:49)
[2021-01-03] MEDS: Divalproex (24 HR) 500 MG TABLET PO SCH (21:02)
[2021-01-03] MEDS: FluPHENAZine 10 MG TABLET PO SCH (21:02)
[2021-01-03] MEDS: traZODone 50 MG TABLET PO PRN (21:02)
[2021-01-03] MEDS: hydrOXYzine pamoate 25 MG CAPSULE PO PRN (21:02)
[2021-01-04] MEDS ORDERED: Paliperidone Palmitate 156 MG/ML SYRINGE IM SCH (11:00)
[2021-01-04 20:37] VITALS: BP 137/92
[2021-01-04] MEDS: hydrOXYzine pamoate 25 MG CAPSULE PO PRN (20:49)
[2021-01-04] MEDS: Divalproex (24 HR) 500 MG TABLET PO SCH (20:49)
[2021-01-04] MEDS: FluPHENAZine 10 MG TABLET PO SCH (20:49)
[2021-01-04] MEDS: traZODone 50 MG TABLET PO PRN (20:50)
[2021-01-05] MEDS ORDERED: FluPHENAZine 10 MG TABLET PO SCH (09:00)
== END 2021-01-05 18:45 | disposition home or self-care (01) | DRG 885 ==
LOC: EMEROOARM 12:57 → 1ANU 16:34
PROVIDERS: ADMIT Psychiatry & Neurology Psychiatry; ATTEND Psychiatry & Neurology Psychiatry